=== PATIENT | female | born 1935 | race Caucasian/White ===

== ENCOUNTER 2017-06-13 17:45 | Inpatient (IN) ==
[2017-06-13] MEDS ORDERED: 0.9 % Sodium Chloride 500 ML IVC ONE (18:07)
--- NOTE | 2017-06-13 18:10 | Emergency Department Note ---
Disposition Clinical Impression: Generalized weakness, Thrombocytopenia, Severe sepsis UTI (urinary tract infection) Qualifiers: Urinary tract infection type: site unspecified Hematuria presence: with hematuria Qualified Code(s): N39.0 - Urinary tract infection, site not specified Disposition: Admitted As Inpatient Condition: Serious Time of Disposition: 18:47 Weakness HPI - General Chief complaint: ED Weakness Stated complaint: weakness Time Seen by Provider: 06/13/17 17:48 Source: EMS Mode of arrival: EMS Limitations: no limitations Nursing Notes Reviewed: Yes Vital Signs Reviewed: Yes - History of Present Illness HPI Narrative: 82-year-old female arrives to [facility] emergency department with generalized weakness has been worsening over the past 4 days. The patient denies any active complaints other than just generalized weakness. The patient states that she is not had any falls or struck her head in any way. The patient states she has a history of overactive bladder but denies any change, denies chest pain, difficulty breathing, abdominal pain, fevers, chills. 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 The patient states she has no baseline deficits associated with her previous CVA. Patient currently lives by herself at home. Pt Subjective Complaint: generalized weakness/fatigue Onset (ago): day(s) (4) Duration: constant, gradually worsening Location: generalized Migration: none Pain Severity: none Pain Scale: 0 Improves with: none Worsens with: none Associated symptoms: Reports: easy bruising, loss of appetite - Related Data Home Medications Medication Instructions Recorded Confirmed Alendronate Sodium 70 mg PO QWEEK 05/10/16 06/13/17 Aspirin 81 mg PO DAILY 05/10/16 06/13/17 Omeprazole [PriLOSEC] 20 mg PO DAILY 05/10/16 06/13/17 Sertraline [Zoloft] 150 mg PO DAILY 05/10/16 06/13/17 clonazePAM [Clonazepam] 1 mg PO HS 05/10/16 06/13/17 Ascorbic Acid [Vitamin C] 250 mg PO DAILY 04/14/17 06/13/17 Fexofenadine HCl [Allergy Relief] 180 mg PO DAILY 04/14/17 06/13/17 Iron 27 mg PO DAILY 06/13/17 06/13/17 Allergies Allergy/AdvReac Type Severity Reaction Status Date / Time phenobarbital Allergy Hives Verified 04/14/17 10:27 All systems ED: reviewed and negative except as stated. Constitutional: Reports: weakness, weight change. Denies: fever, chills Eyes: Denies: vision change ENT ED: Denies: hearing loss, dysphagia Cardiovascular: Denies: chest pain Respiratory: Denies: dyspnea Gastrointestinal: Denies: abdominal pain, nausea, vomiting, diarrhea, constipation, hematemesis, melena, hematochezia Genitourinary: Denies: dysuria, frequency, hematuria, discharge Musculoskeletal: Denies: back pain, neck pain, arthralgia, myalgia Integumentary: Denies: rash Neurological: Denies: headache, weakness, numbness Past Medical History - Past Medical History Attestation: Yes The following information was validated with the patient. Source: patient Medical history: Reports: coronary artery disease, CVA, renal disease, other Surgical history: Reports: , cholecystectomy, other Psychiatric history: Reports: depression - Social History Smoking Status: Never smoker Smokeless Tobacco Status: No Alcohol use: Reports: none Drug use: Reports: none Physical Exam - General Limitations: no limitations General appearance: alert, in no apparent distress - Head Head exam: atraumatic, normocephalic, normal inspection - Eye Eye exam: Present: normal appearance, PERRL, EOMI - ENT ENT exam: normal exam, normal oropharynx, mucous membranes moist - Neck Neck exam: Present: normal inspection, full ROM, trachea midline - Chest Chest inspection: Present: normal inspection, symmetric chest wall rise - Respiratory Respiratory exam: Present: normal lung sounds bilaterally - Cardiovascular Cardiovascular exam: Present: normal rhythm, tachycardia, normal heart sounds - Abdominal Exam Abdominal exam: Present: soft, Non-Tender. Absent: tenderness, distention, guarding, rebound, rigidity - Extremities Exam Extremities exam: Present: full ROM, other (Mild ecchymosis of bilateral lower extremities associated with likely trauma.). Absent: tenderness - Neurological Exam Neurological exam: Present: alert, oriented X3. Absent: motor sensory deficit - Expanded Neurological Exam Patient oriented to: Present: person, place, time Speech: Present: fluid speech Cranial nerves: EOM function (II, III, IV, ): Normal, facial sensation (V): Normal, facial palsy (VII): Normal Motor strength - LUE: 3/5 Motor strength - RUE: 3/5 Motor strength - LLE: 3/5 Motor strength - RLE: 3/5 Sensory exam upper extremity: light touch: Normal Sensory exam lower extremity: light touch: Normal Coma Scale Eye Opening: Spontaneous Coma Scale Motor Response: Obeys Commands Coma Scale Verbal Response: Oriented Coma Scale Total: 15 Course Vital Signs Temperature 98.8 F 06/13/17 17:48 Pulse Rate 106 06/13/17 17:48 Respiratory Rate 1 06/13/17 17:48 Blood Pressure 124/90 06/13/17 17:48 O2 Sat by Pulse Oximetry 96 06/13/17 17:48 Temperature 98.6 F 06/15/17 06:55 Pulse Rate 72 06/15/17 06:55 Respiratory Rate 18 06/15/17 06:55 Blood Pressure 138/80 06/15/17 06:55 O2 Sat by Pulse Oximetry 95 06/15/17 06:55 Oxygen Delivery Oxygen Delivery Room Air Weakness - Lab Data Result diagrams: 06/15/17 04:14 06/15/17 04:14 Lab Results 06/13/17 06/13/17 06/13/17 Range/Units 18:26 18:46 18:46 WBC (4.3-11.1) K/mcL RBC (3.82-4.97) M/mcL Hgb (11.5-15.4) g/dL Hct (35.3-44.9) % MCV (83.0-100.0) fL MCH (28.0-33.3) pg MCHC (31.6-35.5) g/dL RDW (11.5-14.5) % Plt Count (140-400) K/mcL MPV (9.4-12.4) fL Immature Gran % (0-4) % Seg Neutrophils % % Lymphocytes % % Monocytes % % Eosinophils % % Basophils % % Neutrophils # (1.6-8.9) K/mcL Lymphocytes # (0.6-4.6) K/mcL Monocytes # (0.0-1.3) K/mcL Eosinophils # (0.0-0.6) K/mcL Basophils # (0.0-0.2) K/mcL Immature Plt Fraction (1.1-6.1) % PT (9.4-12.1) Seconds INR APTT (26.0-36.0) Seconds D-Dimer (0-500) ng/mLFEU Sodium 142 (136-145) mEq/L Potassium 3.6 (3.5-4.5) mEq/L Chloride 106 (98-109) mEq/L Carbon Dioxide 23 (19-29) mEq/L BUN 28 H (7-20) mg/dL Creatinine 1.87 H (0.57-1.11) mg/dL Est GFR ( Amer) 31 L (> 60) Est GFR (Non-Af Amer) 26 L (> 60) BUN/Creatinine Ratio 15 (6-26) Glucose 82 (70-99) mg/dL Calculated Osmolality 299 (280-300) Lactic Acid 2.9 H (0.5-2.2) mmol/L Calcium 9.3 (8.6-10.8) mg/dL Phosphorus (2.3-4.7) mg/dL Magnesium (1.6-2.6) mg/dL Total Bilirubin 0.6 (0.2-1.2) mg/dL Direct Bilirubin (0.0-0.5) mg/dL Indirect Bilirubin (0.0-1.2) mg/dL AST 13 (5-34) Units/L ALT 9 (0-55) Units/L Alkaline Phosphatase 77 (38-126) Units/L Troponin I (0-0.03) ng/mL Serum Total Protein 7.8 (6.0-8.3) g/dL Albumin 3.6 (3.5-5.0) g/dL Globulin 4.2 H (2.4-3.5) g/dL Albumin/Globulin Ratio 0.9 L (1.1-2.2) Urine Color Yellow (Yellow) Urine Clarity Cloudy A (Clear) Urine pH 5.5 (5.0-8.0) pH Units Ur Specific [place] 1.015 (1.010-1.025) Urine Protein 30 H (Neg-Trace) mg/dL Urine Glucose (UA) Normal (Normal) mg/dL Urine Ketones Negative (Negative) mg/dL Urine Blood Large H (Negative) Urine Nitrite Positive A (Negative) Urine Bilirubin Negative (Negative) Urine Urobilinogen Normal (Normal) mg/dL Ur Leukocyte Esterase Large H (Negative) Urine Microscopic RBC 30-50 H (0-3) per hpf Urine Microscopic WBC 50-100 H (0-3) per hpf Ur Squamous Epith Cells Many H (None-Few) per lpf Urine Bacteria Moderate H (None-Few) per hpf Hyaline Casts Few (None-Few) per lpf Ur Culture Indicated? YES A (NO) 06/13/17 06/13/17 06/13/17 Range/Units 18:46 18:46 18:46 WBC (4.3-11.1) K/mcL RBC (3.82-4.97) M/mcL Hgb 11.9 (11.5-15.4) g/dL Hct 37.5 (35.3-44.9) % MCV (83.0-100.0) fL MCH (28.0-33.3) pg MCHC (31.6-35.5) g/dL RDW (11.5-14.5) % Plt Count 25 L* (140-400) K/mcL MPV (9.4-12.4) fL Immature Gran % (0-4) % Seg Neutrophils % % Lymphocytes % % Monocytes % % Eosinophils % % Basophils % % Neutrophils # (1.6-8.9) K/mcL Lymphocytes # (0.6-4.6) K/mcL Monocytes # (0.0-1.3) K/mcL Eosinophils # (0.0-0.6) K/mcL Basophils # (0.0-0.2) K/mcL Immature Plt Fraction (1.1-6.1) % PT 11.2 (9.4-12.1) Seconds INR 1.0 APTT (26.0-36.0) Seconds D-Dimer 963 H (0-500) ng/mLFEU Sodium (136-145) mEq/L Potassium (3.5-4.5) mEq/L Chloride (98-109) mEq/L Carbon Dioxide (19-29) mEq/L BUN (7-20) mg/dL Creatinine (0.57-1.11) mg/dL Est GFR ( Amer) (> 60) Est GFR (Non-Af Amer) (> 60) BUN/Creatinine Ratio (6-26) Glucose (70-99) mg/dL Calculated Osmolality (280-300) Lactic Acid (0.5-2.2) mmol/L Calcium (8.6-10.8) mg/dL Phosphorus (2.3-4.7) mg/dL Magnesium (1.6-2.6) mg/dL Total Bilirubin (0.2-1.2) mg/dL Direct Bilirubin (0.0-0.5) mg/dL Indirect Bilirubin (0.0-1.2) mg/dL AST (5-34) Units/L ALT (0-55) Units/L Alkaline Phosphatase (38-126) Units/L Troponin I 0.02 (0-0.03) ng/mL Serum Total Protein (6.0-8.3) g/dL Albumin (3.5-5.0) g/dL Globulin (2.4-3.5) g/dL Albumin/Globulin Ratio (1.1-2.2) Urine Color (Yellow) Urine Clarity (Clear) Urine pH (5.0-8.0) pH Units Ur Specific [place] (1.010-1.025) Urine Protein (Neg-Trace) mg/dL Urine Glucose (UA) (Normal) mg/dL Urine Ketones (Negative) mg/dL Urine Blood (Negative) Urine Nitrite (Negative) Urine Bilirubin (Negative) Urine Urobilinogen (Normal) mg/dL Ur Leukocyte Esterase (Negative) Urine Microscopic RBC (0-3) per hpf Urine Microscopic WBC (0-3) per hpf Ur Squamous Epith Cells (None-Few) per lpf Urine Bacteria (None-Few) per hpf Hyaline Casts (None-Few) per lpf Ur Culture Indicated? (NO) 06/13/17 06/13/17 06/13/17 Range/Units 19:55 19:55 19:55 WBC 5.7 (4.3-11.1) K/mcL RBC 3.72 L (3.82-4.97) M/mcL Hgb 10.3 L D (11.5-15.4) g/dL Hct 32.5 L (35.3-44.9) % MCV 87.4 (83.0-100.0) fL MCH 27.7 L (28.0-33.3) pg MCHC 31.7 (31.6-35.5) g/dL RDW 15.2 H (11.5-14.5) % Plt Count 23 L* (140-400) K/mcL MPV (9.4-12.4) fL Immature Gran % 0.5 (0-4) % Seg Neutrophils % 65.7 % Lymphocytes % 23.4 % Monocytes % 9.3 % Eosinophils % 0.7 % Basophils % 0.4 % Neutrophils # 3.7 (1.6-8.9) K/mcL Lymphocytes # 1.3 (0.6-4.6) K/mcL Monocytes # 0.5 (0.0-1.3) K/mcL Eosinophils # 0.0 (0.0-0.6) K/mcL Basophils # 0.0 (0.0-0.2) K/mcL Immature Plt Fraction 10.3 H (1.1-6.1) % PT (9.4-12.1) Seconds INR APTT 30.8 (26.0-36.0) Seconds D-Dimer (0-500) ng/mLFEU Sodium (136-145) mEq/L Potassium (3.5-4.5) mEq/L Chloride (98-109) mEq/L Carbon Dioxide (19-29) mEq/L BUN (7-20) mg/dL Creatinine (0.57-1.11) mg/dL Est GFR ( Amer) (> 60) Est GFR (Non-Af Amer) (> 60) BUN/Creatinine Ratio (6-26) Glucose (70-99) mg/dL Calculated Osmolality (280-300) Lactic Acid (0.5-2.2) mmol/L Calcium (8.6-10.8) mg/dL Phosphorus 2.0 L (2.3-4.7) mg/dL Magnesium 1.5 L (1.6-2.6) mg/dL Total Bilirubin 0.5 (0.2-1.2) mg/dL Direct Bilirubin 0.2 (0.0-0.5) mg/dL Indirect Bilirubin 0.3 (0.0-1.2) mg/dL AST 13 (5-34) Units/L ALT 8 (0-55) Units/L Alkaline Phosphatase 62 (38-126) Units/L Troponin I (0-0.03) ng/mL Serum Total Protein 6.3 (6.0-8.3) g/dL Albumin 3.0 L (3.5-5.0) g/dL Globulin 3.3 (2.4-3.5) g/dL Albumin/Globulin Ratio 0.9 L (1.1-2.2) Urine Color (Yellow) Urine Clarity (Clear) Urine pH (5.0-8.0) pH Units Ur Specific [place] (1.010-1.025) Urine Protein (Neg-Trace) mg/dL Urine Glucose (UA) (Normal) mg/dL Urine Ketones (Negative) mg/dL Urine Blood (Negative) Urine Nitrite (Negative) Urine Bilirubin (Negative) Urine Urobilinogen (Normal) mg/dL Ur Leukocyte Esterase (Negative) Urine Microscopic RBC (0-3) per hpf Urine Microscopic WBC (0-3) per hpf Ur Squamous Epith Cells (None-Few) per lpf Urine Bacteria (None-Few) per hpf Hyaline Casts (None-Few) per lpf Ur Culture Indicated? (NO) 06/13/17 06/13/17 Range/Units 19:55 21:58 WBC (4.3-11.1) K/mcL RBC (3.82-4.97) M/mcL Hgb (11.5-15.4) g/dL Hct (35.3-44.9) % MCV (83.0-100.0) fL MCH (28.0-33.3) pg MCHC (31.6-35.5) g/dL RDW (11.5-14.5) % Plt Count (140-400) K/mcL MPV (9.4-12.4) fL Immature Gran % (0-4) % Seg Neutrophils % % Lymphocytes % % Monocytes % % Eosinophils % % Basophils % % Neutrophils # (1.6-8.9) K/mcL Lymphocytes # (0.6-4.6) K/mcL Monocytes # (0.0-1.3) K/mcL Eosinophils # (0.0-0.6) K/mcL Basophils # (0.0-0.2) K/mcL Immature Plt Fraction (1.1-6.1) % PT (9.4-12.1) Seconds INR APTT (26.0-36.0) Seconds D-Dimer (0-500) ng/mLFEU Sodium (136-145) mEq/L Potassium (3.5-4.5) mEq/L Chloride (98-109) mEq/L Carbon Dioxide (19-29) mEq/L BUN (7-20) mg/dL Creatinine (0.57-1.11) mg/dL Est GFR ( Amer) (> 60) Est GFR (Non-Af Amer) (> 60) BUN/Creatinine Ratio (6-26) Glucose (70-99) mg/dL Calculated Osmolality (280-300) Lactic Acid 0.9 (0.5-2.2) mmol/L Calcium (8.6-10.8) mg/dL Phosphorus (2.3-4.7) mg/dL Magnesium (1.6-2.6) mg/dL Total Bilirubin (0.2-1.2) mg/dL Direct Bilirubin (0.0-0.5) mg/dL Indirect Bilirubin (0.0-1.2) mg/dL AST (5-34) Units/L ALT (0-55) Units/L Alkaline Phosphatase (38-126) Units/L Troponin I 0.03 (0-0.03) ng/mL Serum Total Protein (6.0-8.3) g/dL Albumin (3.5-5.0) g/dL Globulin (2.4-3.5) g/dL Albumin/Globulin Ratio (1.1-2.2) Urine Color (Yellow) Urine Clarity (Clear) Urine pH (5.0-8.0) pH Units Ur Specific [place] (1.010-1.025) Urine Protein (Neg-Trace) mg/dL Urine Glucose (UA) (Normal) mg/dL Urine Ketones (Negative) mg/dL Urine Blood (Negative) Urine Nitrite (Negative) Urine Bilirubin (Negative) Urine Urobilinogen (Normal) mg/dL Ur Leukocyte Esterase (Negative) Urine Microscopic RBC (0-3) per hpf Urine Microscopic WBC (0-3) per hpf Ur Squamous Epith Cells (None-Few) per lpf Urine Bacteria (None-Few) per hpf Hyaline Casts (None-Few) per lpf Ur Culture Indicated? (NO) - EKG Data EKG attestation: Yes I reviewed and interpreted this EKG. EKG results narrative: Heart rate 10 4 bpm. QTC 379 ms. Normal sinus rhythm. No ST elevation or ST depression noted. Large amount of artifact noted. Attestation Statement - Attestation Attestation: I examined this patient and my medical decision-making was reviewed with the Resident Physician. I agree with the documented findings, disposition and treatment plan as described.
[2017-06-13 18:37] LABS: Bilirubin,Urine Negative (Negative); Blood,Urine Large (Negative); Clarity,Urine Cloudy (Clear); Color,Urine Yellow (Yellow); Glucose,Urine (UA) Normal (Normal); Ketones,Urine Negative (Negative); Leukocyte Esterase,Urine Large (Negative); Nitrite,Urine Positive (Negative); PH,Urine 5.5 pH Units (5.0-8.0); Protein,Urine 30 mg/dL (Neg-Trace); Specific Gravity,Urine 1.015 (1.010-1.025); Urobilinogen,Urine Normal (Normal)
[2017-06-13 18:39] LABS: Bacteria,Urine Moderate per hpf (None-Few); Hyaline Casts,Urine Few per lpf (None-Few); RBC,Urine 30-50 per hpf (0-3); Squamous Epithelial Cell,Urine Many per lpf (None-Few); WBC,Urine 50-100 per hpf (0-3)
[2017-06-13] MEDS ORDERED: cefTRIAXone 1,000 MG in Water for inj. (sterile) 10 ML IVP ONE (18:46)
[2017-06-13 19:02] LABS: Hematocrit 37.5 % (35.3-44.9); Hemoglobin 11.9 g/dL (11.5-15.4)
[2017-06-13 19:08] LABS: Prothrombin Time 11.2 Seconds (9.4-12.1)
[2017-06-13 19:14] LABS: Albumin 3.6 g/dL (3.5-5.0); Albumin/Globulin Ratio 0.9 (1.1-2.2); Bilirubin,Total 0.6 mg/dL (0.2-1.2); Calcium 9.3 mg/dL (8.6-10.8); Globulin 4.2 g/dL (2.4-3.5); Potassium 3.6 mEq/L (3.5-4.5); Total Protein 7.8 g/dL (6.0-8.3)
[2017-06-13] MEDS ORDERED: 0.9 % Sodium Chloride 1,000 ML IVC ONE (19:33)
[2017-06-13 20:06] LABS: Basophils % 0.4 %; Eosinophils % 0.7 %; Hematocrit 32.5 % (35.3-44.9); Mean Corpuscular HGB Conc 31.7 g/dL (31.6-35.5)
[2017-06-13 20:08] LABS: Hemoglobin 10.3 g/dL (11.5-15.4); Immature Granulocytes % 0.5 % (0-4); Immature Platelets 10.3 % (1.1-6.1); Lymphocytes # 1.3 K/mcL (0.6-4.6); Lymphocytes % 23.4 %; Mean Corpuscular Hemoglobin 27.7 pg (28.0-33.3); Mean Corpuscular Volume 87.4 fL (83.0-100.0); Monocytes # 0.5 K/mcL (0.0-1.3); Monocytes % 9.3 %; Neutrophils # 3.7 K/mcL (1.6-8.9); Red Blood Count 3.72 M/mcL (3.82-4.97); Red Cell Distribution Width 15.2 % (11.5-14.5); Segmented Neutrophils % 65.7 %
[2017-06-13 20:20] LABS: Albumin/Globulin Ratio 0.9 (1.1-2.2); Bilirubin,Direct 0.2 mg/dL (0.0-0.5); Bilirubin,Indirect 0.3 mg/dL (0.0-1.2); Bilirubin,Total 0.5 mg/dL (0.2-1.2); Globulin 3.3 g/dL (2.4-3.5); Magnesium 1.5 mg/dL (1.6-2.6); Total Protein 6.3 g/dL (6.0-8.3)
[2017-06-13 20:27] LABS: Platelet Count 23 K/mcL (140-400)
--- NOTE | 2017-06-13 20:43 | Emergency Department Note ---
Disposition Clinical Impression: Generalized weakness, Thrombocytopenia, Severe sepsis UTI (urinary tract infection) Qualifiers: Urinary tract infection type: site unspecified Hematuria presence: with hematuria Qualified Code(s): N39.0 - Urinary tract infection, site not specified Disposition: Admitted As Inpatient Condition: Serious Referrals: Teo Darling MD [Primary Care Provider] - Forms: ED Satisfaction Letter Time of Disposition: 20:59 Weakness HPI - General Chief complaint: ED Weakness Stated complaint: weakness Time Seen by Provider: 06/13/17 17:48 Source: EMS Mode of arrival: EMS Limitations: no limitations Nursing Notes Reviewed: Yes Vital Signs Reviewed: Yes - History of Present Illness Pt Subjective Complaint: generalized weakness/fatigue Location: generalized Pain Severity: none Pain Scale: 0 Improves with: none Worsens with: none Associated symptoms: Reports: easy bruising, loss of appetite - Related Data Home Medications Medication Instructions Recorded Confirmed Alendronate Sodium 70 mg PO QWEEK 05/10/16 06/13/17 Aspirin 81 mg PO DAILY 05/10/16 06/13/17 Omeprazole [PriLOSEC] 20 mg PO DAILY 05/10/16 06/13/17 Sertraline [Zoloft] 150 mg PO DAILY 05/10/16 06/13/17 clonazePAM [Clonazepam] 1 mg PO HS 05/10/16 06/13/17 Ascorbic Acid [Vitamin C] 250 mg PO DAILY 04/14/17 06/13/17 Fexofenadine HCl [Allergy Relief] 180 mg PO DAILY 04/14/17 06/13/17 Iron 27 mg PO DAILY 06/13/17 06/13/17 Allergies Allergy/AdvReac Type Severity Reaction Status Date / Time phenobarbital Allergy Hives Verified 04/14/17 10:27 Constitutional: Reports: weakness, weight change. Denies: fever, chills Eyes: Denies: vision change ENT ED: Denies: hearing loss, dysphagia Cardiovascular: Denies: chest pain Respiratory: Denies: dyspnea Gastrointestinal: Denies: abdominal pain, nausea, vomiting, diarrhea, constipation, hematemesis, melena, hematochezia Genitourinary: Denies: dysuria, frequency, hematuria, discharge Musculoskeletal: Denies: back pain, neck pain, arthralgia, myalgia Integumentary: Denies: rash Neurological: Denies: headache, weakness, numbness Past Medical History - Past Medical History Medical history: Reports: coronary artery disease, CVA, renal disease, other Surgical history: Reports: , cholecystectomy, other Psychiatric history: Reports: depression - Social History Smoking Status: Never smoker Smokeless Tobacco Status: No Alcohol use: Reports: none Drug use: Reports: none Physical Exam - General Limitations: no limitations General appearance: alert, in no apparent distress Course Course Narrative: 82-year-old female with altered mental status and generalized weakness, please see Dr. 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., Plan is for IV antibiotics blood cultures lactate, severe sex sepsis was recognized with vital signs criteria tachycardia , and lactic acidosis - Reevaluation(s) Reevaluation #1: Patient will be started empirically on IV antibiotics, this was completed within 3 hours, she is also given a 30 ml/kg bolus 1500ml when severe sepsis was recognized, see ordering documentation for bolus, repeat lactate ordered - Consultations Consultation #1: was counseled in, he states he will not need to see the pt tonight, agrees with admitting him to the hospitalist, and recommends against transfusion at this time but the oncology service is happy to consult in the morning the patient Time: 20:58 Vital Signs Temperature 98.8 F 06/13/17 17:48 Pulse Rate 106 06/13/17 17:48 Respiratory Rate 1 06/13/17 17:48 Blood Pressure 124/90 06/13/17 17:48 O2 Sat by Pulse Oximetry 96 06/13/17 17:48 Temperature 98.8 F 06/13/17 17:48 Pulse Rate 96 06/13/17 20:36 Respiratory Rate 16 06/13/17 20:36 Blood Pressure 157/80 06/13/17 20:36 O2 Sat by Pulse Oximetry 96 06/13/17 20:36 Oxygen Delivery Oxygen Delivery Room Air Weakness - Differential Diagnosis Differential Diagnosis: Likely: sepsis/infection - Medical Records Medical records reviewed: Yes I reviewed the patient's medical records. - Lab Data Lab results reviewed: Yes I reviewed the patient's lab results. Result diagrams: 06/13/17 19:55 06/13/17 18:46 Lab Results 06/13/17 06/13/17 06/13/17 Range/Units 18:26 18:46 18:46 WBC (4.3-11.1) K/mcL RBC (3.82-4.97) M/mcL Hgb (11.5-15.4) g/dL Hct (35.3-44.9) % MCV (83.0-100.0) fL MCH (28.0-33.3) pg MCHC (31.6-35.5) g/dL RDW (11.5-14.5) % Plt Count (140-400) K/mcL MPV (9.4-12.4) fL Immature Gran % (0-4) % Seg Neutrophils % % Lymphocytes % % Monocytes % % Eosinophils % % Basophils % % Neutrophils # (1.6-8.9) K/mcL Lymphocytes # (0.6-4.6) K/mcL Monocytes # (0.0-1.3) K/mcL Eosinophils # (0.0-0.6) K/mcL Basophils # (0.0-0.2) K/mcL Immature Plt Fraction (1.1-6.1) % PT (9.4-12.1) Seconds INR APTT (26.0-36.0) Seconds D-Dimer (0-500) ng/mLFEU Sodium 142 (136-145) mEq/L Potassium 3.6 (3.5-4.5) mEq/L Chloride 106 (98-109) mEq/L Carbon Dioxide 23 (19-29) mEq/L BUN 28 H (7-20) mg/dL Creatinine 1.87 H (0.57-1.11) mg/dL Est GFR ( Amer) 31 L (> 60) Est GFR (Non-Af Amer) 26 L (> 60) BUN/Creatinine Ratio 15 (6-26) Glucose 82 (70-99) mg/dL Calculated Osmolality 299 (280-300) Lactic Acid 2.9 H (0.5-2.2) mmol/L Calcium 9.3 (8.6-10.8) mg/dL Phosphorus (2.3-4.7) mg/dL Magnesium (1.6-2.6) mg/dL Total Bilirubin 0.6 (0.2-1.2) mg/dL Direct Bilirubin (0.0-0.5) mg/dL Indirect Bilirubin (0.0-1.2) mg/dL AST 13 (5-34) Units/L ALT 9 (0-55) Units/L Alkaline Phosphatase 77 (38-126) Units/L Troponin I (0-0.03) ng/mL Serum Total Protein 7.8 (6.0-8.3) g/dL Albumin 3.6 (3.5-5.0) g/dL Globulin 4.2 H (2.4-3.5) g/dL Albumin/Globulin Ratio 0.9 L (1.1-2.2) Urine Color Yellow (Yellow) Urine Clarity Cloudy A (Clear) Urine pH 5.5 (5.0-8.0) pH Units Ur Specific [place] 1.015 (1.010-1.025) Urine Protein 30 H (Neg-Trace) mg/dL Urine Glucose (UA) Normal (Normal) mg/dL Urine Ketones Negative (Negative) mg/dL Urine Blood Large H (Negative) Urine Nitrite Positive A (Negative) Urine Bilirubin Negative (Negative) Urine Urobilinogen Normal (Normal) mg/dL Ur Leukocyte Esterase Large H (Negative) Urine Microscopic RBC 30-50 H (0-3) per hpf Urine Microscopic WBC 50-100 H (0-3) per hpf Ur Squamous Epith Cells Many H (None-Few) per lpf Urine Bacteria Moderate H (None-Few) per hpf Hyaline Casts Few (None-Few) per lpf Ur Culture Indicated? YES A (NO) 06/13/17 06/13/17 06/13/17 Range/Units 18:46 18:46 18:46 WBC (4.3-11.1) K/mcL RBC (3.82-4.97) M/mcL Hgb 11.9 (11.5-15.4) g/dL Hct 37.5 (35.3-44.9) % MCV (83.0-100.0) fL MCH (28.0-33.3) pg MCHC (31.6-35.5) g/dL RDW (11.5-14.5) % Plt Count 25 L* (140-400) K/mcL MPV (9.4-12.4) fL Immature Gran % (0-4) % Seg Neutrophils % % Lymphocytes % % Monocytes % % Eosinophils % % Basophils % % Neutrophils # (1.6-8.9) K/mcL Lymphocytes # (0.6-4.6) K/mcL Monocytes # (0.0-1.3) K/mcL Eosinophils # (0.0-0.6) K/mcL Basophils # (0.0-0.2) K/mcL Immature Plt Fraction (1.1-6.1) % PT 11.2 (9.4-12.1) Seconds INR 1.0 APTT (26.0-36.0) Seconds D-Dimer 963 H (0-500) ng/mLFEU Sodium (136-145) mEq/L Potassium (3.5-4.5) mEq/L Chloride (98-109) mEq/L Carbon Dioxide (19-29) mEq/L BUN (7-20) mg/dL Creatinine (0.57-1.11) mg/dL Est GFR ( Amer) (> 60) Est GFR (Non-Af Amer) (> 60) BUN/Creatinine Ratio (6-26) Glucose (70-99) mg/dL Calculated Osmolality (280-300) Lactic Acid (0.5-2.2) mmol/L Calcium (8.6-10.8) mg/dL Phosphorus (2.3-4.7) mg/dL Magnesium (1.6-2.6) mg/dL Total Bilirubin (0.2-1.2) mg/dL Direct Bilirubin (0.0-0.5) mg/dL Indirect Bilirubin (0.0-1.2) mg/dL AST (5-34) Units/L ALT (0-55) Units/L Alkaline Phosphatase (38-126) Units/L Troponin I 0.02 (0-0.03) ng/mL Serum Total Protein (6.0-8.3) g/dL Albumin (3.5-5.0) g/dL Globulin (2.4-3.5) g/dL Albumin/Globulin Ratio (1.1-2.2) Urine Color (Yellow) Urine Clarity (Clear) Urine pH (5.0-8.0) pH Units Ur Specific [place] (1.010-1.025) Urine Protein (Neg-Trace) mg/dL Urine Glucose (UA) (Normal) mg/dL Urine Ketones (Negative) mg/dL Urine Blood (Negative) Urine Nitrite (Negative) Urine Bilirubin (Negative) Urine Urobilinogen (Normal) mg/dL Ur Leukocyte Esterase (Negative) Urine Microscopic RBC (0-3) per hpf Urine Microscopic WBC (0-3) per hpf Ur Squamous Epith Cells (None-Few) per lpf Urine Bacteria (None-Few) per hpf Hyaline Casts (None-Few) per lpf Ur Culture Indicated? (NO) 06/13/17 06/13/17 06/13/17 Range/Units 19:55 19:55 19:55 WBC 5.7 (4.3-11.1) K/mcL RBC 3.72 L (3.82-4.97) M/mcL Hgb 10.3 L D (11.5-15.4) g/dL Hct 32.5 L (35.3-44.9) % MCV 87.4 (83.0-100.0) fL MCH 27.7 L (28.0-33.3) pg MCHC 31.7 (31.6-35.5) g/dL RDW 15.2 H (11.5-14.5) % Plt Count 23 L* (140-400) K/mcL MPV (9.4-12.4) fL Immature Gran % 0.5 (0-4) % Seg Neutrophils % 65.7 % Lymphocytes % 23.4 % Monocytes % 9.3 % Eosinophils % 0.7 % Basophils % 0.4 % Neutrophils # 3.7 (1.6-8.9) K/mcL Lymphocytes # 1.3 (0.6-4.6) K/mcL Monocytes # 0.5 (0.0-1.3) K/mcL Eosinophils # 0.0 (0.0-0.6) K/mcL Basophils # 0.0 (0.0-0.2) K/mcL Immature Plt Fraction 10.3 H (1.1-6.1) % PT (9.4-12.1) Seconds INR APTT 30.8 (26.0-36.0) Seconds D-Dimer (0-500) ng/mLFEU Sodium (136-145) mEq/L Potassium (3.5-4.5) mEq/L Chloride (98-109) mEq/L Carbon Dioxide (19-29) mEq/L BUN (7-20) mg/dL Creatinine (0.57-1.11) mg/dL Est GFR ( Amer) (> 60) Est GFR (Non-Af Amer) (> 60) BUN/Creatinine Ratio (6-26) Glucose (70-99) mg/dL Calculated Osmolality (280-300) Lactic Acid (0.5-2.2) mmol/L Calcium (8.6-10.8) mg/dL Phosphorus 2.0 L (2.3-4.7) mg/dL Magnesium 1.5 L (1.6-2.6) mg/dL Total Bilirubin 0.5 (0.2-1.2) mg/dL Direct Bilirubin 0.2 (0.0-0.5) mg/dL Indirect Bilirubin 0.3 (0.0-1.2) mg/dL AST 13 (5-34) Units/L ALT 8 (0-55) Units/L Alkaline Phosphatase 62 (38-126) Units/L Troponin I (0-0.03) ng/mL Serum Total Protein 6.3 (6.0-8.3) g/dL Albumin 3.0 L (3.5-5.0) g/dL Globulin 3.3 (2.4-3.5) g/dL Albumin/Globulin Ratio 0.9 L (1.1-2.2) Urine Color (Yellow) Urine Clarity (Clear) Urine pH (5.0-8.0) pH Units Ur Specific [place] (1.010-1.025) Urine Protein (Neg-Trace) mg/dL Urine Glucose (UA) (Normal) mg/dL Urine Ketones (Negative) mg/dL Urine Blood (Negative) Urine Nitrite (Negative) Urine Bilirubin (Negative) Urine Urobilinogen (Normal) mg/dL Ur Leukocyte Esterase (Negative) Urine Microscopic RBC (0-3) per hpf Urine Microscopic WBC (0-3) per hpf Ur Squamous Epith Cells (None-Few) per lpf Urine Bacteria (None-Few) per hpf Hyaline Casts (None-Few) per lpf Ur Culture Indicated? (NO) 06/13/17 Range/Units 19:55 WBC (4.3-11.1) K/mcL RBC (3.82-4.97) M/mcL Hgb (11.5-15.4) g/dL Hct (35.3-44.9) % MCV (83.0-100.0) fL MCH (28.0-33.3) pg MCHC (31.6-35.5) g/dL RDW (11.5-14.5) % Plt Count (140-400) K/mcL MPV (9.4-12.4) fL Immature Gran % (0-4) % Seg Neutrophils % % Lymphocytes % % Monocytes % % Eosinophils % % Basophils % % Neutrophils # (1.6-8.9) K/mcL Lymphocytes # (0.6-4.6) K/mcL Monocytes # (0.0-1.3) K/mcL Eosinophils # (0.0-0.6) K/mcL Basophils # (0.0-0.2) K/mcL Immature Plt Fraction (1.1-6.1) % PT (9.4-12.1) Seconds INR APTT (26.0-36.0) Seconds D-Dimer (0-500) ng/mLFEU Sodium (136-145) mEq/L Potassium (3.5-4.5) mEq/L Chloride (98-109) mEq/L Carbon Dioxide (19-29) mEq/L BUN (7-20) mg/dL Creatinine (0.57-1.11) mg/dL Est GFR ( Amer) (> 60) Est GFR (Non-Af Amer) (> 60) BUN/Creatinine Ratio (6-26) Glucose (70-99) mg/dL Calculated Osmolality (280-300) Lactic Acid (0.5-2.2) mmol/L Calcium (8.6-10.8) mg/dL Phosphorus (2.3-4.7) mg/dL Magnesium (1.6-2.6) mg/dL Total Bilirubin (0.2-1.2) mg/dL Direct Bilirubin (0.0-0.5) mg/dL Indirect Bilirubin (0.0-1.2) mg/dL AST (5-34) Units/L ALT (0-55) Units/L Alkaline Phosphatase (38-126) Units/L Troponin I 0.03 (0-0.03) ng/mL Serum Total Protein (6.0-8.3) g/dL Albumin (3.5-5.0) g/dL Globulin (2.4-3.5) g/dL Albumin/Globulin Ratio (1.1-2.2) Urine Color (Yellow) Urine Clarity (Clear) Urine pH (5.0-8.0) pH Units Ur Specific [place] (1.010-1.025) Urine Protein (Neg-Trace) mg/dL Urine Glucose (UA) (Normal) mg/dL Urine Ketones (Negative) mg/dL Urine Blood (Negative) Urine Nitrite (Negative) Urine Bilirubin (Negative) Urine Urobilinogen (Normal) mg/dL Ur Leukocyte Esterase (Negative) Urine Microscopic RBC (0-3) per hpf Urine Microscopic WBC (0-3) per hpf Ur Squamous Epith Cells (None-Few) per lpf Urine Bacteria (None-Few) per hpf Hyaline Casts (None-Few) per lpf Ur Culture Indicated? (NO) - Radiology Data Radiology results reviewed: Yes I reviewed the patient's radiology results. Chest X-Ray 06/13/17 18:05 IMPRESSION: Stable exam. No acute cardiopulmonary findings. D/ / Patsy Tamayo MD / Patsy Tamayo MD Interpreting Provider: Patsy Tamayo MD Head CT 06/13/17 19:37 IMPRESSION: No acute intracranial abnormality. Bilateral mastoid air cell disease. D/ / Shantel Shaw Cha, MD / Shantel Shaw Cha, MD Interpreting Provider: Shantel Shaw Cha, MD Critical Care Time Critical Care Time: Yes Total Critical Care Time: 40 Attestation: Critical care performed: Time is exclusive of separately billable procedures. Time includes: direct patient care, patient reassessment, coordination of patient care, interpretation of data (laboratory data, radiology data, and respiratory data), review of patient's medical records, medical consultation and documentation of patient care. Procedures included in critical care time: Procedures excluded from critical care time: Attestation Statement - Attestation Attestation: I, Kailash Hicks MD, personally evaluated this patient and discussed their management with the resident physician. I reviewed the resident's note and agree with the documented findings, medical decision making, and plan of care. This patient was signed out at shift change from Dr. Aguirre and Dr. Velasquez. Please refer to their notes for complete details of the history and physical examination. Patient is an 82-year-old female who lives at home alone and presented complaining of generalized weakness increasing over the past week. For the last several days she states that she has had difficulty getting out of bed or ambulating. She complains of pain in her right leg where she has a chronic ulcer on the leg. She denies any urinary symptoms. No definite fever. On examination patient is a well-developed thin elderly female in no acute distress. She is alert and answers questions appropriately. There is no cyanosis or diaphoresis. Breath sounds are clear and equal bilaterally. Heart is regular with a mild tachycardia. Abdomen is soft and nontender with normal bowel sounds. There is some mild cellulitis of the distal anterior right lower leg. Labs reviewed. UTI noted. Thrombocytopenia noted. Elevated lactic acid. Chest x-ray negative. Head CT negative. Patient meets severe sepsis criteria. Dr. Christine discussed with the adaptive physical education teacher on-call regarding the thrombocytopenia and they will consult on patient in the hospital. The hospitalist, Dr. Victor, was consulted and accepted admission of the patient. Sepsis Reassessment Note - Evaluation Current Stage of Sepsis: severe sepsis Possible Source of Sepsis: genitourinary - Focused Exam Date of Encounter: 06/13/17 Time of Encounter: 20:56 Vital Signs: Vital Signs Temp Pulse Resp BP Pulse Ox 06/13/17 20:36 96 16 157/80 96 06/13/17 18:46 110 19 143/76 100 06/13/17 17:48 98.8 F 106 1 124/90 96 Respiratory Exam: Present: CTA bilaterally Cardiovascular Exam: Present: tachycardia Capillary Refill: < 2 seconds Peripheral Pulse Strength: 3+ normal Peripheral Pulse Location: Radial Skin Exam: normal turgor - Reassessment Comments Comments: Patient has severe sepsis by definition with lactate of 2.9 altered mental status UTI, tachycardia but has no evidence of septic shock she has not hypotense, repeat lactate will be checked within 6 hours, patient was started empirically on broad-spectrum antibiotics after blood cultures and lactate were checked within the first 3 hours, the patient is medically stable at this time, does have poor skin turgor and tachycardia but is otherwise showing no signs of shock at this time
[2017-06-13] MEDS ORDERED: Naloxone 0.4 MG/ML INJ IVP PRN (22:10)
[2017-06-13] MEDS ORDERED: Ondansetron 4 MG/2 ML VIAL IVP PRN (22:10)
[2017-06-13] MEDS: 0.9 % Sodium Chloride 1,000 ML IVC SCH (23:53)
--- NOTE | 2017-06-14 02:48 | Internal Med History&Physical ---
Date of Encounter: 06/14/17 Time of Encounter: 01:00 Assessment and Plan (1) Thrombocytopenia Current visit: Yes Status: Acute Severe Acute on chronic thrombocytopenia - no active bleeding - unclear etiology Patient does have extensive bruising of her arms and lower extremities Watch for any bleeding, transfuse platelets as needed Oncology consult Labs in a.m., monitor closely (2) Sacral decubitus ulcer, stage III Current visit: Yes Status: Acute Chronic sacral decubitus ulcer, stage III Continue wound care daily (3) UTI (urinary tract infection) Current visit: Yes Status: Acute Acute cystitis, UTI, present on admission, likely secondary to gram-negative bacilli Continue empiric IV Rocephin Cultures - pending Qualifiers: Urinary tract infection type: site unspecified Hematuria presence: with hematuria Qualified Code(s): N39.0 - Urinary tract infection, site not specified; R31.9 - Hematuria, unspecified; R31.9 - Hematuria, unspecified (4) Generalized weakness Current visit: Yes Status: Acute Generalized weakness - probably due to poor by mouth intake and due to protein calorie malnutrition due to UTI Nutrition consult Internal Medicine - H&P: HPI Chief complaint: Generalized weakness Admitted From: Emergency Dept Plans for Post Hospital Care: Home History of present illness: Ms. Sullivan is a 82 year old female with past medical history of coronary artery disease, CVA, chronic kidney disease, depression and thrombocytopenia. Patient presents to the ED with complaints of generalized weakness. Examined in the room. Patient is awake and alert. Not in any distress. Able to provide limited history. No family members at bedside. Patient states she has worsening generalized weakness over the past 4-5 days. No falls or injuries recently. She denies chest pain or shortness of breath or headache or dizziness. States she does not feel like her usual self. No aggravating or alleviating factors. Patient does report easy bruising and poor appetite. She also has a sacral wound and follows at the wound clinic. No other associated symptoms. No other acute complaints at this time. Initial workup in the ED revealed severe thrombocytopenia and elevated d-dimer. The patient also has a significant UTIs. Chest x-ray does not show any acute cardiopulmonary findings. CT of the head does not show any acute intracranial abnormality. Patient is being admitted for severe thrombocytopenia. Oncology has been consulted from the ED. No platelet transfusion at this time. Watch for any bleeding. Patient has been explained about her condition and plan of care in detail. She understood and agreed. No unanswered questions. CODE STATUS full code. Past Med Surg Social Fam HX - Past Medical History Medical history: coronary artery disease, CVA, renal disease, other Psychiatric history: depression - Past Surgical History Surgical History: , cholecystectomy, other - Social History Smoking Status: Never smoker Smokeless Tobacco Status: No Alcohol use: none Drug use: none - Family History Mother Living Status: Cause of : [place] Hx Family Cardiac Disorders: Yes Hx Family Respiratory Disorders: No Hx Family Cancer: No Hx Family GI Disorders: No Hx Family Genitourinary Disorders: No Hx Family Endocrine Disorder: No Internal Medicine - H&P: Meds Alendronate Sodium 70 mg PO QWEEK 05/10/16 [History] Aspirin 81 mg PO DAILY 05/10/16 [History] Omeprazole [PriLOSEC] 20 mg PO DAILY 05/10/16 [History] Sertraline [Zoloft] 150 mg PO DAILY 05/10/16 [History] clonazePAM [Clonazepam] 1 mg PO HS 05/10/16 [History] Ascorbic Acid [Vitamin C] 250 mg PO DAILY 04/14/17 [History] Fexofenadine HCl [Allergy Relief] 180 mg PO DAILY 04/14/17 [History] Iron 27 mg PO DAILY 06/13/17 [History] 3 Allergy/AdvReac Type Severity Reaction Status Date / Time phenobarbital Allergy Hives Verified 04/14/17 10:27 All Systems PM: A 10-system review of systems was performed and is negative for pertinent findings except as documented above in the HPI. - Constitutional Constitutional: fatigue, weakness, no fever(s) - EENT Eyes: no blurry vision, no change in vision Nose, mouth and throat: no dry mouth - Cardiovascular Cardiovascular ROS IM: no chest pain, no diaphoresis, no dyspnea, no dyspnea on exertion, no edema, no lightheadedness, no orthopnea, no palpitations, no syncope - Respiratory Respiratory: no cough, no dyspnea, no hemoptysis, no dyspnea on exertion, no wheezing, no chest congestion - Gastrointestinal Gastrointestinal: no abdominal pain, no bloating, no cramping, no diarrhea, no dysphagia, no hematemesis, no hematochezia, no loose stools, no nausea, no vomiting - Genitourinary Genitourinary: dysuria - Neurological Neurological ROS: no abnormal gait, no confusion, no convulsions, no dizziness, no focal weakness, no numbness, no tingling, no weakness - Constitutional Vitals: Temp Pulse Resp BP Pulse Ox 99.0 F 93 17 145/69 96 06/14/17 02:40 06/14/17 02:40 06/14/17 02:40 06/14/17 02:40 06/14/17 02:40 General appearance: Present: cachectic, A&O X 2, pleasant, no acute distress, answers questions appropriately Exam: Objective alert. Follows commands and verbalizes well. - Head Head exam: Present: atraumatic - Eye Eye exam: Present: EOMI - ENT ENT exam: Present: mucous membranes dry - Respiratory Respiratory exam: Present: CTAB. Absent: accessory muscle use, chest wall tenderness, rales, respiratory distress, rhonchi, wheezes, tachypnea - Cardiovascular Cardiovascular exam: Present: RRR, +S1, +S2 - GI/Abdominal GI/Abdominal exam: Present: soft. Absent: distended, firm, guarding, tenderness - Extremities Exam Extremities exam: Present: radial pulses palpable and symmetrical. Absent: calf tenderness, cyanotic, pedal edema - Neurological Exam Neurological exam: Present: alert, no focal deficits. Absent: facial droop, speech deficit Additional comments: 11. Able to verbalize well and follows commands. Oriented to place and person. No obvious focal neurological deficits. - Skin Additional comments: Multiple bruises over her arms and lower extremities with skin tears. Sacral decubitus ulcer stage III. Internal Med - H&P Results - Labs CBC & Chem 7: 06/13/17 19:55 06/13/17 18:46
[2017-06-14] MEDS: Acetaminophen 325 MG TABLET PO PRN ×2 (04:08→15:26)
[2017-06-14 05:36] LABS: Hemoglobin 9.4 g/dL (11.5-15.4); Mean Corpuscular HGB Conc 31.3 g/dL (31.6-35.5); Mean Corpuscular Hemoglobin 27.5 pg (28.0-33.3); Mean Corpuscular Volume 87.7 fL (83.0-100.0); Monocytes % 8.9 %; Red Blood Count 3.42 M/mcL (3.82-4.97); Segmented Neutrophils % 52.1 %
[2017-06-14 05:37] LABS: Basophils % 0.4 %; Eosinophils # 0.1 K/mcL (0.0-0.6); Immature Granulocytes % 0.2 % (0-4); Lymphocytes # 1.7 K/mcL (0.6-4.6); Lymphocytes % 36.4 %; Monocytes # 0.4 K/mcL (0.0-1.3); Neutrophils # 2.4 K/mcL (1.6-8.9); Red Cell Distribution Width 15.1 % (11.5-14.5)
[2017-06-14 05:41] LABS: Prothrombin Time 11.2 Seconds (9.4-12.1)
[2017-06-14 05:50] LABS: Magnesium 1.5 mg/dL (1.6-2.6); Potassium 3.9 mEq/L (3.5-4.5)
[2017-06-14 05:53] LABS: Platelet Count 34 K/mcL (140-400)
[2017-06-14 05:56] LABS: Calcium 7.9 mg/dL (8.6-10.8)
[2017-06-14 06:23] LABS: Platelet Estimate Marked Decrease (Normal)
[2017-06-14] MEDS: IRON 27MG PO SCH (08:53)
[2017-06-14] MEDS: cefTRIAXone 1,000 MG in Water for inj. (sterile) 10 ML IVP SCH (08:54)
[2017-06-14] MEDS: Ascorbic Acid 500 MG TABLET PO SCH (08:55)
--- NOTE | 2017-06-14 15:36 | Event Note ---
Date of Encounter: 06/14/17 Time of Encounter: 09:15 Mrs. Sullivan is an 82-year-old female with past medical history of CAD, CVA, depression, stage III decubitus ulcer, protein calorie malnutrition, CKC stage III, anemia and thrombocytopenia and states that she sees hematology. Patient presented to the emergency department with complaints of generalized weakness. Patient lives at home alone, she states that she has an aide who comes to assist her twice a week for 4 hours a day. She reports increasing weakness over the last 4-5 days and 2 falls in the last week. She also reports dizziness with position changes. She denies headache, blurred vision, chest pain or shortness of breath. She denies any nausea, vomiting, diaphoresis or diarrhea. She denies fever chills. She states that when she did fall she was unable to get herself up from the floor. Physical exam reveals a frail, cachectic female with extensive bruising. During Exam patient was unable to lift her 4 ounce orange juice from the table. Patient appears to be dry. S1 and S2 heard regular rate and rhythm without gallops, clicks, murmurs. Lungs are clear diminished throughout both anteriorly and posteriorly. She is in no distress there is no wheezing, rales, rhonchi. Abdomen slightly rounded soft, nontender, bowel sounds are present. She has no peripheral edema however she does have multiple healing wounds to lower extremities. She also has a healing decubitus ulcer to her sacrum. Likely source of recent weakness other than physical deconditioning is a UTI. Urinalysis reveals cloudy urine with a large amount of blood, positive for nitrites, large amount leukocyte esterase, 30-50 microscopic red cells, 50-100 microscopic white cells, moderate bacteria. Culture showed Escherichia coli. He is being treated with Rocephin 1 g IV daily. Will wait for sensitivity make adjustments accordingly. Patient also has thrombocytopenia, on admission platelets were 23, this morning 34. This is significantly lower than her baseline. She states that she already sees hematology, they have been consulted by vacuum drier tender and will see patient while she is here. Per admitting physician, they have requested that we do not transfuse her. Patient also appears to have anemia. Labs have been ordered, suspect iron deficiency due to cachexia and poor diet. In February, percent saturation was 9% and iron level was 35. I have continued ferrous sulfate here. Dietary has been consulted. Patient has healing decubitus ulcer to sacrum. Wound care was consulted by admitting provider. PT/OT have been consulted. Patient states that she is not going to do physical therapy due to the fact that it is uncomfortable for her and causes her legs physical pain. environmental services associate is also consulted for discharge planning. At this time I feel that patient is not safe to return home. Patient is mildly hypertensive, due to renal disease I did not add a diuretic or 80s. I did add a beta maged low dose 12.5. We will monitor her overnight. Abnormal labs as mentioned above. Creatinine is 1.61, GFR is 31. This is at patient's baseline for stage III CKD. Magnesium 1.5, mag ox has been ordered. Calcium is low at 7.9. I have added calcium carbonate 1000 mg 4 times a day. We will continue telemetry and monitor patient. Consultations ordered and pending as above.
--- NOTE | 2017-06-14 17:00 | Oncology Inp Consult Note ---
Date of Encounter: 06/15/17 Time of Encounter: 16:55 Assessment and Plan (1) UTI (urinary tract infection) Status: Acute Assessment and plan: Recurrent Escherichia coli UTI. This could be a reason for her thrombocytopenia She also had sacral decubitus ulcer in 2016 which has healed Qualifiers: Urinary tract infection type: site unspecified Hematuria presence: with hematuria Qualified Code(s): N39.0 - Urinary tract infection, site not specified; R31.9 - Hematuria, unspecified; R31.9 - Hematuria, unspecified (2) Thrombocytopenia Status: Acute Assessment and plan: Acute on chronic thrombocytopenia with platelet count 24,000 on admission. Improved to 35,000. She has chronic thrombocytopenia and also progressive anemia. Differential include portal hypertension versus underlying MDS. May consider bone marrow biopsy as an outpatient Consider platelet transfusion if platelet count drops below 10,000 or clinical evidence of bleeding which she does not have Her acute drop in platelet count is probably secondary to her UTI. B12 folate and TSH normal 06/15/2017. Iron saturation pending. Rheumatoid factor less than 15 Also anemia workup. She had elevated ESR 58 in the past which could have been secondary to sepsis - Data of Consult Requesting Physician: Paola Miller CNP Primary Care Provider: Teo Darling MD - Consult Narrative Reason for consult: Thrombocytopenia History of present illness: Ms. Sullivan is a 82 year old female hospitalized with UTI Escherichia coli. She has recurrent UTI and on May 2000 16 units: A UTI which was sensitive to all antibiotics. Sensitivity from this culture is pending Progressive thrombocytopenia current platelet count around 20,000 area day this has dropped her baseline is around 50,000 Thrombocytopenia is progressive since 2014 and at that time it was 90,000 She also has anemia progressively since 2014. Hemoglobin is dropped from 13 in 2014 to around 9 range. Normocytic normochromic Workup showed low iron saturation of 13% with ferritin 60. B12 folate TSH normal in the past. Workup for thrombocytopenia including vital hepatitis panel negative April 2017 No history of type 2 diabetes She follows up with Dr. Duran at [facility] for thrombocytopenia Etiology of thrombocytopenia to be determined May evaluate her liver and spleen with ultrasound to rule out portal hypertension/cirrhosis. She may have a component of MDS CT of chest 10/30/2014 negative Past medical history coronary artery disease, CVA, chronic kidney disease is 3. Current creatinine 1.6 and stable depression and thrombocytopenia. Sacral decubitus ulcer. MRI pelvis June 2016 showed 5 centimeters decubitus ulcer in the sacrum and possible osteomyelitis S1 area. Since then the decubitus ulcer has healed Past Med Surg Social Fam HX - Past Medical History Medical history: coronary artery disease, CVA, renal disease, other Psychiatric history: depression - Past Surgical History Surgical History: , cholecystectomy, other - Social History Smoking Status: Never smoker Smokeless Tobacco Status: No Alcohol use: none Drug use: none - Family History Mother Living Status: Cause of : IN Hx Family Cardiac Disorders: Yes Hx Family Respiratory Disorders: No Hx Family Cancer: No Hx Family GI Disorders: No Hx Family Genitourinary Disorders: No Hx Family Endocrine Disorder: No Medications and Allergies Alendronate Sodium 70 mg PO QWEEK 05/10/16 [History] Aspirin 81 mg PO DAILY 05/10/16 [History] Omeprazole [PriLOSEC] 20 mg PO DAILY 05/10/16 [History] Sertraline [Zoloft] 150 mg PO DAILY 05/10/16 [History] clonazePAM [Clonazepam] 1 mg PO HS 05/10/16 [History] Ascorbic Acid [Vitamin C] 250 mg PO DAILY 04/14/17 [History] Fexofenadine HCl [Allergy Relief] 180 mg PO DAILY 04/14/17 [History] Iron 27 mg PO DAILY 06/13/17 [History] 3 Allergy/AdvReac Type Severity Reaction Status Date / Time phenobarbital Allergy Hives Verified 04/14/17 10:27 Review of systems: She is alert and oriented. Able to answer questions appropriately. No chest pain or shortness of breath Oncology - Exam - Constitutional Vitals: Temp Pulse Resp BP Pulse Ox 98.8 F 97 16 176/96 96 06/14/17 14:51 06/14/17 14:51 06/14/17 14:51 06/14/17 14:51 06/14/17 14:51 Exam: GENERAL: Alert and oriented, well appearing. Mental Status: Affect appropriate for circumstances HEENT: Sclerae anicteric. No mucositis or thrush. No other oral or pharyngeal lesions or erythema. Skin: No rashes or petechiae. No evidence of skin malignancy Lymph nodes: No cervical, supraclavicular, axillary, or inguinal adenopathy. Lungs: Air entry normal with normal breath sounds. No rhonchi or wheezing Cardiovascular: Regular rate and rhythm. No skipped beats Abdomen: Soft, nontender; no organomegaly or masses palpable. Extremities: No edema. No calf swelling or tenderness. No joint deformity. Neurologic: Alert, cranial nerves II-XII intact; normal gait; no focal weakness or sensory abnormalities Oncology - Results Labs: Short CBC 06/14/17 Range/Units 04:40 WBC 4.6 (4.3-11.1) K/mcL Hgb 9.4 L (11.5-15.4) g/dL Hct 30.0 L (35.3-44.9) % Plt Count 34 L (140-400) K/mcL Neutrophils # 2.4 (1.6-8.9) K/mcL BMP 06/14/17 04:40 Sodium 140 Potassium 3.9 Chloride 111 H Carbon Dioxide 19 BUN 30 H Creatinine 1.61 H Glucose 113 H Calcium 7.9 L D Consult Discharge Plan - Plan Referrals: Teo aDrling MD [Primary Care Provider] -
[2017-06-14] MEDS: Aspirin 81 MG TAB.CHEW PO SCH (17:32)
[2017-06-14 19:35] LABS: Rheumatoid Factor < 15 IU/mL (0-29)
[2017-06-14] MEDS: 0.9 % Sodium Chloride 1,000 ML IVC SCH (19:38)
[2017-06-14 20:04] LABS: Folate 7.2 ng/mL (7.0-31.4); Vitamin B12 509 pg/mL (213-816)
[2017-06-14] MEDS: clonazePAM 1 MG TABLET PO SCH (21:14)
[2017-06-14] MEDS: Magnesium Oxide 400 MG TABLET PO SCH (21:14)
--- NOTE | 2017-06-14 22:57 | Electrocardiograph Report ---
[address] [place] [address] Test Date: 2017-06-13 Pat Name: Susan Sullivan Department: [id number] Room: 3B41 Gender: F Police Stenographer: TMR : [id number] Requested By: Hair Wall Order Number: [id number] Reading MD: Sunny Sofia MD Measurements Intervals [address] Flat Rate: 106 P: AL: 0 QRS: 9 QRSD: 85 T: 66 QT: 324 QTc: 386 Interpretive Statements PROBABLY SINUS TACHYCARDIA BASELINE ARTIFACT, REPEAT EKG Electronically Signed On 06-14-2017 22:55:46 EST by Sunny Sofia MD
[2017-06-15] MEDS: 0.9 % Sodium Chloride 1,000 ML IVC SCH (01:41)
[2017-06-15 04:39] LABS: Immature Granulocytes % 0.2 % (0-4); Mean Corpuscular Hemoglobin 27.3 pg (28.0-33.3)
[2017-06-15 04:41] LABS: Basophils % 0.7 %; Eosinophils # 0.1 K/mcL (0.0-0.6); Eosinophils % 2.8 %; Hematocrit 31.2 % (35.3-44.9); Hemoglobin 9.7 g/dL (11.5-15.4); Immature Platelets 9.9 % (1.1-6.1); Lymphocytes # 1.8 K/mcL (0.6-4.6); Lymphocytes % 41.8 %; Mean Corpuscular HGB Conc 31.1 g/dL (31.6-35.5); Mean Corpuscular Volume 87.9 fL (83.0-100.0); Monocytes # 0.4 K/mcL (0.0-1.3); Monocytes % 9.4 %; Neutrophils # 1.9 K/mcL (1.6-8.9); Nucleated Red Blood Cells 0.7 /100 WBC (0); Red Blood Count 3.55 M/mcL (3.82-4.97); Segmented Neutrophils % 45.1 %
[2017-06-15 04:48] LABS: Platelet Count 27 K/mcL (140-400)
[2017-06-15 04:55] LABS: Calcium 8.1 mg/dL (8.6-10.8)
[2017-06-15 05:24] LABS: Platelet Estimate Decreased (Normal)
[2017-06-15 05:25] LABS: Poikilocytosis 1+ (Not Present)
[2017-06-15] MEDS: Aspirin 81 MG TAB.CHEW PO SCH (09:00)
[2017-06-15] MEDS: Ascorbic Acid 500 MG TABLET PO SCH (09:00)
[2017-06-15] MEDS: Magnesium Oxide 400 MG TABLET PO SCH ×2 (09:01→20:48)
[2017-06-15] MEDS: Loratadine 10 MG TABLET PO SCH (09:01)
[2017-06-15] MEDS: IRON 27MG PO SCH (09:03)
[2017-06-15] MEDS: cefTRIAXone 1,000 MG in Water for inj. (sterile) 10 ML IVP SCH (09:03)
[2017-06-15 11:00] LABS: Folate 8.4 ng/mL (7.0-31.4)
--- NOTE | 2017-06-15 18:29 | Internal Med Progress Note ---
Date of Encounter: 06/15/17 Time of Encounter: 09:45 - Assessment and plan (1) Sacral decubitus ulcer, stage III Current Visit: Yes Status: Acute Assessment and plan: Healed. Wound care has been seen. Turn every 2 hours. (2) UTI (urinary tract infection) Current Visit: Yes Status: Acute Assessment and plan: Patient presented for confusion and weakness. Urine culture grew Escherichia coli. It is susceptible to Rocephin. Will change to Bactrim. Blood cultures were negative. Patient denies any symptoms. She is back to her baseline mentation. There is no fever or leukocytosis, no tachycardia or hypotension. Qualifiers: Urinary tract infection type: site unspecified Hematuria presence: with hematuria Qualified Code(s): N39.0 - Urinary tract infection, site not specified; R31.9 - Hematuria, unspecified; R31.9 - Hematuria, unspecified (3) Anemia Current Visit: Yes Status: Chronic Assessment and plan: Patient with chronic anemia. She is seen by oncology. She has no signs of bleeding. Iron is 26, percent saturation is 9. Folate and B12 were within normal limits. Patient was started on ferrous sulfate twice a day.. Continue to monitor. Qualifiers: Anemia type: iron deficiency Iron deficiency anemia type: unspecified iron deficiency Qualified Code(s): D50.9 - Iron deficiency anemia, unspecified (4) Thrombocytopenia Current Visit: Yes Status: Acute Assessment and plan: Patient with chronic thrombocytopenia. She has been seen by oncology here. Acute on chronic with platelet count 24,000. Per oncology, acute drop in platelet counts probably secondary to UTI. (5) DVT prophylaxis Current Visit: Yes Status: Acute Assessment and plan: MANNY joiner ordered, up to chair. No pharmacologic intervention indicated due to chronic anemia and thrombocytopenia. - Time Spent With Patient less than 15 minutes - Subjective Interval history: Patient was seen and assessed at bedside at 9:45 AM. Patient states that she feels somewhat better, she still reports fatigue. She was seen by oncology and extra labs were ordered. She was assessed by them again today. Plan for discharge tomorrow. She denies headache, blurred vision, chest pain or shortness of breath. She denies fever or chills. She denies any abdominal pain , nausea, vomiting, diarrhea. - Constitutional Vitals: Temp Pulse Resp BP Pulse Ox 98.1 F 72 20 139/80 97 06/15/17 16:00 06/15/17 16:00 06/15/17 16:00 06/15/17 16:00 06/15/17 16:00 General appearance: Present: cachectic, A&O X 2, pleasant, no acute distress, answers questions appropriately - Head Head exam: Present: atraumatic, normal inspection, normocephalic - Eye Eye exam: Present: normal appearance, conjuntiva pink, sclera anicteric - Neck Neck exam general surgery: Present: supple, trachea midline. Absent: lymphadenopathy - Respiratory Respiratory exam: Present: CTAB. Absent: accessory muscle use, chest wall tenderness, decreased breath sounds, rales, rhonchi, wheezes - Cardiovascular Cardiovascular exam: Present: RRR, +S1, +S2. Absent: diastolic murmur, gallop, rubs, systolic murmur - GI/Abdominal GI/Abdominal exam: Present: normal bowel sounds, soft. Absent: distended, guarding, tenderness - Extremities Exam Extremities exam: Present: normal inspection, warm, radial pulses palpable and symmetrical. Absent: calf tenderness, cyanotic, pedal edema - Neurological Exam Neurological exam: Present: alert, oriented X3, no focal deficits, pronater drift. Absent: altered, facial droop, speech deficit - Skin Skin exam: Present: dry, intact, warm. Absent: rash Internal Medicine: Result - Labs CBC & Chem 7: 06/15/17 04:14 06/15/17 04:14 Labs: Short CBC 06/15/17 Range/Units 04:14 WBC 4.3 (4.3-11.1) K/mcL Hgb 9.7 L (11.5-15.4) g/dL Hct 31.2 L (35.3-44.9) % Plt Count 27 L* (140-400) K/mcL Neutrophils # 1.9 (1.6-8.9) K/mcL BMP 06/15/17 04:14 Sodium 142 Potassium 4.0 Chloride 113 H Carbon Dioxide 18 L BUN 26 H Creatinine 1.56 H Glucose 117 H Calcium 8.1 L - ABG Interpretation ABG results: PT/INR, D-dimer PT 11.2 Seconds (9.4-12.1) 06/14/17 04:40 D-Dimer 963 ng/mLFEU (0-500) H 06/13/17 18:46 Consult Discharge Plan - Plan Referrals: Teo Darling MD [Primary Care Provider] -
[2017-06-15] MEDS: clonazePAM 1 MG TABLET PO SCH (20:48)
[2017-06-16 07:14] LABS: Immature Granulocytes % 0.2 % (0-4)
[2017-06-16 07:16] LABS: Basophils % 0.6 %; Eosinophils # 0.2 K/mcL (0.0-0.6); Eosinophils % 3.4 %; Hematocrit 33.5 % (35.3-44.9); Hemoglobin 10.3 g/dL (11.5-15.4); Immature Platelets 8.1 % (1.1-6.1); Lymphocytes # 1.8 K/mcL (0.6-4.6); Lymphocytes % 36.5 %; Mean Corpuscular HGB Conc 30.7 g/dL (31.6-35.5); Mean Corpuscular Hemoglobin 27.5 pg (28.0-33.3); Mean Corpuscular Volume 89.6 fL (83.0-100.0); Monocytes # 0.5 K/mcL (0.0-1.3); Monocytes % 9.4 %; Neutrophils # 2.5 K/mcL (1.6-8.9); Nucleated Red Blood Cells 0.4 /100 WBC (0); Red Blood Count 3.74 M/mcL (3.82-4.97); Segmented Neutrophils % 49.9 %
[2017-06-16 07:31] LABS: Calcium 8.2 mg/dL (8.6-10.8); Magnesium 1.8 mg/dL (1.6-2.6); Potassium 4.4 mEq/L (3.5-4.5)
[2017-06-16 07:38] LABS: Platelet Count 39 K/mcL (140-400)
[2017-06-16] MEDS ORDERED: Sulfamethoxazole/Trimeth SS 1 TAB PO SCH (09:00)
[2017-06-16] MEDS: Aspirin 81 MG TAB.CHEW PO SCH (09:16)
[2017-06-16] MEDS: Loratadine 10 MG TABLET PO SCH (09:16)
[2017-06-16] MEDS: Ascorbic Acid 500 MG TABLET PO SCH (09:16)
[2017-06-16] MEDS: Magnesium Oxide 400 MG TABLET PO SCH (09:17)
[2017-06-16] MEDS: IRON 27MG PO SCH (09:17)
[2017-06-16 15:30] VITALS: BP 151/80
--- NOTE | 2017-06-16 16:33 | Discharge Summary ---
Date of Encounter: 06/16/17 Time of Encounter: 08:55 - Discharge Diagnosis (1) UTI (urinary tract infection) Priority: Primary Status: Acute Comments: Patient presented for confusion and weakness. Urine culture grew Escherichia coli. It is susceptible to Rocephin. Will change to Bactrim. Blood cultures were negative. Patient denies any symptoms. She is back to her baseline mentation. There is no fever or leukocytosis, no tachycardia or hypotension. Patient is going to be sent home on Bactrim by mouth. Qualifiers: Urinary tract infection type: site unspecified Hematuria presence: with hematuria Qualified Code(s): N39.0 - Urinary tract infection, site not specified; R31.9 - Hematuria, unspecified; R31.9 - Hematuria, unspecified (2) Sacral decubitus ulcer, stage III Priority: Secondary Status: Chronic Comments: Healed. Patient was seen by wound care. Recommend turn every 2 hours. Patient controls her mobility at home. (3) Anemia Priority: Secondary Status: Chronic Comments: Patient with chronic anemia. She is seen by oncology. She has no signs of bleeding. Iron is 26, percent saturation is 9. Folate and B12 were within normal limits. Patient was started on ferrous sulfate twice a day.. Patient will need to follow-up with primary care/oncology for continued monitoring and management. Qualifiers: Anemia type: iron deficiency Iron deficiency anemia type: unspecified iron deficiency Qualified Code(s): D50.9 - Iron deficiency anemia, unspecified (4) Thrombocytopenia Priority: Secondary Status: Chronic Comments: Patient with chronic thrombocytopenia. She has been seen by oncology here. Acute on chronic with platelet count 39,000, improved over admission. Per oncology, acute drop in platelet counts probably secondary to UTI. Oncology recommends ultrasound the liver and spleen. I spoke with Dr. Phan by phone, he will do the ultrasound outpatient. Patient is stable for discharge. (5) DVT prophylaxis Priority: Secondary Status: Acute Comments: MANNY joiner ordered, up to chair. No pharmacologic intervention due to chronic anemia and thrombocytopenia. Patient has no signs of bleeding. - Discharge Medications Prescriptions: Sulfamethoxazole/Trimeth SS [Bactrim SS] 1 tab PO BID #12 tablet Home Medications: Alendronate Sodium 70 mg PO QWEEK 05/10/16 [History] Aspirin 81 mg PO DAILY 05/10/16 [History] Omeprazole [PriLOSEC] 20 mg PO DAILY 05/10/16 [History] Sertraline [Zoloft] 150 mg PO DAILY 05/10/16 [History] clonazePAM [Clonazepam] 1 mg PO HS 05/10/16 [History] Ascorbic Acid [Vitamin C] 250 mg PO DAILY 04/14/17 [History] Fexofenadine HCl [Allergy Relief] 180 mg PO DAILY 04/14/17 [History] Iron 27 mg PO DAILY 06/13/17 [History] Sulfamethoxazole/Trimeth SS [Bactrim SS] 1 tab PO BID #12 tablet 06/16/17 [Rx] Allergies/Adverse Reactions: 3 Allergy/AdvReac Type Severity Reaction Status Date / Time phenobarbital Allergy Hives Verified 04/14/17 10:27 Date of admission: 06/13/17 22:10 Primary care physician: Teo Darling MD Consults: 06/14/17 03:17 Consult to Occupational Therapy [CONS] Routine Comment: Evaluate, develop and implement POC Reason for Consult: OT eval Consult to Physical Therapy [CONS] Routine Comment: Evaluate, develop and implement POC Reason for Consult: PT eval Consult to Echo Vascular Tech [CONS] Routine Reason for SW Consult: Discharge planning consult to statistical engineer [Consult to Nutrition] [CONS] Routine Comment: Protein calorie malnutrition Consulting Provider: NUTRITION Reason for Dietary Consult: Other 06/14/17 03:19 Consult to Wound Care [CONS] Routine Reason for Consult: Sacral decubitus ulcer Call Completed: No Discharging clinician: Paola Miller Anticipated date of discharge: 06/16/17 - Patient Status Disposition: Home, Self-Care Condition: Serious Functional capacity at discharge: bed bound Overall status at discharge: patient is back to baseline - Discharge Instructions Follow Up With: Teo Darling MD [Primary Care Provider] - 06/26/17 3:30 pm Additional Instructions: Please follow up with your PCP in the next 7-10 days Take your medications as directed. Return to the ER as needed for any other problems or concerns. REturn to your normal activities and diet as tolerated. - Diet and Activity Activity: increase activity as tolerated Diet: advance to your usual diet Hospital course: Ms. Sullivan is a 82 year old female with past medical history of healed sacral stage III decubitus ulcer, cellulitis, constipation, urinary incontinence, chronic anemia and thrombocytopenia. Patient presented with weakness, confusion. She was diagnosed with urinary tract infection and treated with Rocephin. She is going to be discharged on Bactrim. Patient is very weak she has refused physical therapy and occupational therapy. She says that she has home health aides who come to times a week for 4 hours. barrow worker helper discussed increasing hours with her. Apparently patient is a hoarder and is embarrassed about the condition of her home, she does not allow people to come in. Patient is alert, awake, oriented, pleasant. Physical exam is unremarkable for anything but weakness. Patient is stable and appropriate for discharge. - Time Spent with Patient Total time spent providing and/or coordinating discharge services: Less than 30 minutes - Constitutional Vitals: Temp Pulse Resp BP Pulse Ox 98 F 82 16 151/80 100 06/16/17 15:22 06/16/17 15:22 06/16/17 15:22 06/16/17 15:22 06/16/17 15:22 General appearance: Present: cachectic, A&O X 2, pleasant, no acute distress, answers questions appropriately - Head Head exam: Present: atraumatic, normal inspection, normocephalic - Eye Eye exam: Present: normal appearance, conjuntiva pink, sclera anicteric - Neck Neck exam general surgery: Present: supple, trachea midline. Absent: lymphadenopathy - Respiratory Respiratory exam: Present: CTAB. Absent: accessory muscle use, rales, rhonchi, wheezes - Cardiovascular Cardiovascular exam: Present: RRR, +S1, +S2. Absent: diastolic murmur, gallop, rubs, systolic murmur - GI/Abdominal GI/Abdominal exam: Present: normal bowel sounds, soft. Absent: distended, tenderness - Extremities Exam Extremities exam: Present: warm, radial pulses palpable and symmetrical. Absent : calf tenderness, cyanotic, pedal edema, tenderness - Neurological Exam Neurological exam: Present: CN II-XII intact, oriented X3, no focal deficits. Absent: facial droop, speech deficit - Skin Skin exam: Present: dry, intact, normal color, warm. Absent: rash
[2017-06-18 06:04] LABS: Kappa Qnt Free Light Chains 7.08 mg/dL (0.33-1.94); Lambda Qnt Free Light Chains 3.85 mg/dL (0.57-2.63)
[2017-06-18 06:40] LABS: Alpha 2 Globulin (PEP) 0.63 g/dL (0.48-1.05); Beta Globulin (PEP) 0.53 g/dL (0.48-1.10)
[2017-06-19 08:07] LABS: IFE Reflexed NOT DONE
[2017-06-19 12:38] LABS: ANA IgG by ELISA DETECTED (None Detected)
== END 2017-06-16 19:15 | disposition home or self-care (01) | DRG 690 ==
LOC: EMEROO 17:45 → 3BNU 17:45
PROVIDERS: ADMIT Family Medicine; ATTEND Registered Nurse

== ENCOUNTER 2017-06-20 17:37 | Inpatient (IN) ==
--- NOTE | 2017-06-20 17:42 | Emergency Department Note ---
Disposition Clinical Impression: Generalized weakness UTI (urinary tract infection) Qualifiers: Urinary tract infection type: acute cystitis Hematuria presence: without hematuria Qualified Code(s): N30.00 - Acute cystitis without hematuria Disposition: Admitted As Inpatient Condition: Fair Referrals: Teo Darling MD [Primary Care Provider] - Forms: ED Satisfaction Letter Time of Disposition: 19:51 Weakness HPI - General Chief complaint: ED Weakness Stated complaint: no energy Time Seen by Provider: 06/20/17 17:39 Source: patient, EMS Mode of arrival: EMS Limitations: no limitations Nursing Notes Reviewed: Yes Vital Signs Reviewed: Yes - History of Present Illness HPI Narrative: 82-year-old female who was hospitalized last week for generalized weakness and was found to have a UTI which grew out greater than 100,000 Escherichia coli sensitive to Bactrim which she was placed on. Patient was discharged on Monday was placed on the couch at her house and has not moved since. Home health came in today and found her on the couch she had urine and feces soaking the couch she had not moved from that spot where they had put her down on Monday. She states she is just generally weak and cannot ambulate. Pt Subjective Complaint: generalized weakness/fatigue Onset (ago): day(s) Duration: constant Location: generalized Improves with: none Worsens with: none Context: new medication - Related Data Home Medications Medication Instructions Recorded Confirmed Alendronate Sodium 70 mg PO QWEEK 05/10/16 06/20/17 Aspirin 81 mg PO DAILY 05/10/16 06/20/17 Omeprazole [PriLOSEC] 20 mg PO DAILY 05/10/16 06/20/17 Sertraline [Zoloft] 150 mg PO DAILY 05/10/16 06/20/17 clonazePAM [Clonazepam] 1 mg PO HS 05/10/16 06/20/17 Ascorbic Acid [Vitamin C] 250 mg PO DAILY 04/14/17 06/20/17 Fexofenadine HCl [Allergy Relief] 180 mg PO DAILY 04/14/17 06/20/17 Ferrous Sulfate [Iron] 325 mg PO DAILY #0 06/13/17 06/20/17 Previous Rx's Medication Instructions Recorded Sulfamethoxazole/Trimeth SS 1 tab PO BID #12 tablet 06/16/17 [Bactrim SS] Allergies Allergy/AdvReac Type Severity Reaction Status Date / Time phenobarbital Allergy Hives Verified 06/20/17 17:44 All systems ED: reviewed and negative except as stated. Constitutional: Denies: fever, chills, weakness, weight change Eyes: Denies: eye pain, eye discharge, vision change ENT ED: Denies: ear pain, throat pain, dental pain, hearing loss, epistaxis, congestion, dysphagia Cardiovascular: Denies: chest pain, palpitations, dyspnea on exertion, edema, syncope Respiratory: Denies: cough, dyspnea, wheezes, hemoptysis, stridor Gastrointestinal: Denies: abdominal pain, nausea, vomiting, diarrhea, constipation, hematemesis, melena, hematochezia Genitourinary: Denies: dysuria, frequency, hematuria, discharge Musculoskeletal: Denies: back pain, neck pain, arthralgia, myalgia Integumentary: Denies: rash, abrasion, lesions Neurological: Reports: weakness. Denies: headache, numbness, paresthesias, confusion, abnormal gait, vertigo Psychiatric: Denies: anxiety, depression, suicidal thoughts, homicidal thoughts , auditory hallucinations, visual hallucinations Endocrine: Denies: fatigue Hematological/Lymphatic: Denies: easy bleeding, easy bruising Allergic/Immunologic: Denies: facial swelling, urticaria Past Medical History - Past Medical History Medical history: Reports: coronary artery disease, CVA, renal disease, other Surgical history: Reports: , cholecystectomy, other Psychiatric history: Reports: depression - Social History Smoking Status: Never smoker Smokeless Tobacco Status: No Alcohol use: Reports: none Drug use: Reports: none Physical Exam - General Limitations: no limitations General appearance: alert, in no apparent distress - Head Head exam: atraumatic, normocephalic, normal inspection - Eye Eye exam: Present: normal appearance, PERRL, EOMI - ENT ENT exam: normal exam, normal oropharynx, mucous membranes moist - Neck Neck exam: Present: normal inspection, full ROM, trachea midline - Chest Chest inspection: Present: normal inspection, symmetric chest wall rise - Respiratory Respiratory exam: Present: normal lung sounds bilaterally - Cardiovascular Cardiovascular exam: Present: regular rate, normal rhythm, normal heart sounds - Abdominal Exam Abdominal exam: Present: soft, Non-Tender. Absent: tenderness, distention, guarding, rebound, rigidity - Extremities Exam Extremities exam: Present: normal inspection, full ROM. Absent: tenderness, pedal edema - Expanded Lower Extremity Exam Neurovascular/Tendon exam: Absent: motor deficit, sensory deficit, tendon deficit Gait: not tested/not observed - Back Exam Back exam: Present: normal inspection, full ROM. Absent: tenderness - Neurological Exam Neurological exam: Present: alert, oriented X3 - Psychiatric Psychiatric exam: Present: normal affect, normal mood - Skin Skin exam: Present: warm, dry, intact, normal color Course - Reevaluation(s) Reevaluation #1: 82-year-old who was admitted for UTI and altered mental status comes back in and she has not been able to move from where she was dropped off on the couch on Monday. Patient will be admitted for further evaluation and treatment. Time: 19:49 - Consultations Consultation #1: Discussed with , admit. Time: 19:51 Vital Signs Temperature 98.2 F 06/20/17 17:40 Pulse Rate 96 06/20/17 17:40 Respiratory Rate 14 06/20/17 17:40 Blood Pressure 140/69 06/20/17 17:40 O2 Sat by Pulse Oximetry 100 06/20/17 17:40 Temperature 98.2 F 06/20/17 17:40 Pulse Rate 96 06/20/17 17:40 Respiratory Rate 14 06/20/17 17:40 Blood Pressure 140/69 06/20/17 17:40 O2 Sat by Pulse Oximetry 100 06/20/17 17:40 Oxygen Delivery Oxygen Delivery Room Air Weakness - Lab Data Lab results reviewed: Yes I reviewed the patient's lab results. Result diagrams: 06/20/17 18:15 06/20/17 18:15 Lab Results 06/20/17 06/20/17 06/20/17 Range/Units 18:15 18:15 18:15 WBC 4.3 (4.3-11.1) K/mcL RBC 3.58 L (3.82-4.97) M/mcL Hgb 9.9 L (11.5-15.4) g/dL Hct 32.0 L (35.3-44.9) % MCV 89.4 (83.0-100.0) fL MCH 27.7 L (28.0-33.3) pg MCHC 30.9 L (31.6-35.5) g/dL RDW 14.8 H (11.5-14.5) % Plt Count 63 L D (140-400) K/mcL MPV 11.3 (9.4-12.4) fL Immature Gran % 0.5 (0-4) % Seg Neutrophils % 78.8 % Lymphocytes % 11.2 % Monocytes % 6.7 % Eosinophils % 2.8 % Basophils % 0.0 % Neutrophils # 3.4 (1.6-8.9) K/mcL Lymphocytes # 0.5 L (0.6-4.6) K/mcL Monocytes # 0.3 (0.0-1.3) K/mcL Eosinophils # 0.1 (0.0-0.6) K/mcL Basophils # 0.0 (0.0-0.2) K/mcL Sodium 142 (136-145) mEq/L Potassium 2.7 L (3.5-4.5) mEq/L Chloride 112 H (98-109) mEq/L Carbon Dioxide 18 L (19-29) mEq/L BUN 43 H (7-20) mg/dL Creatinine 1.70 H (0.57-1.11) mg/dL Est GFR ( Amer) 35 L (> 60) Est GFR (Non-Af Amer) 29 L (> 60) BUN/Creatinine Ratio 25 (6-26) Glucose 102 H (70-99) mg/dL Calculated Osmolality 305 H (280-300) Calcium 8.8 (8.6-10.8) mg/dL Total Bilirubin 0.4 (0.2-1.2) mg/dL AST 14 (5-34) Units/L ALT 9 (0-55) Units/L Alkaline Phosphatase 65 (38-126) Units/L Creatine Kinase 43 (29-168) Units/L Troponin I 0.02 (0-0.03) ng/mL Serum Total Protein 6.8 (6.0-8.3) g/dL Albumin 3.2 L (3.5-5.0) g/dL Globulin 3.6 H (2.4-3.5) g/dL Albumin/Globulin Ratio 0.9 L (1.1-2.2) TSH 3.350 (0.350-4.840) mcIU/mL Urine Color (Yellow) Urine Clarity (Clear) Urine pH (5.0-8.0) pH Units Ur Specific [place] (1.010-1.025) Urine Protein (Neg-Trace) mg/dL Urine Glucose (UA) (Normal) mg/dL Urine Ketones (Negative) mg/dL Urine Blood (Negative) Urine Nitrite (Negative) Urine Bilirubin (Negative) Urine Urobilinogen (Normal) mg/dL Ur Leukocyte Esterase (Negative) Urine Microscopic RBC (0-3) per hpf Urine Microscopic WBC (0-3) per hpf Ur Squamous Epith Cells (None-Few) per lpf Urine Bacteria (None-Few) per hpf Hyaline Casts (None-Few) per lpf Ur Culture Indicated? (NO) 06/20/17 Range/Units 18:44 WBC (4.3-11.1) K/mcL RBC (3.82-4.97) M/mcL Hgb (11.5-15.4) g/dL Hct (35.3-44.9) % MCV (83.0-100.0) fL MCH (28.0-33.3) pg MCHC (31.6-35.5) g/dL RDW (11.5-14.5) % Plt Count (140-400) K/mcL MPV (9.4-12.4) fL Immature Gran % (0-4) % Seg Neutrophils % % Lymphocytes % % Monocytes % % Eosinophils % % Basophils % % Neutrophils # (1.6-8.9) K/mcL Lymphocytes # (0.6-4.6) K/mcL Monocytes # (0.0-1.3) K/mcL Eosinophils # (0.0-0.6) K/mcL Basophils # (0.0-0.2) K/mcL Sodium (136-145) mEq/L Potassium (3.5-4.5) mEq/L Chloride (98-109) mEq/L Carbon Dioxide (19-29) mEq/L BUN (7-20) mg/dL Creatinine (0.57-1.11) mg/dL Est GFR ( Amer) (> 60) Est GFR (Non-Af Amer) (> 60) BUN/Creatinine Ratio (6-26) Glucose (70-99) mg/dL Calculated Osmolality (280-300) Calcium (8.6-10.8) mg/dL Total Bilirubin (0.2-1.2) mg/dL AST (5-34) Units/L ALT (0-55) Units/L Alkaline Phosphatase (38-126) Units/L Creatine Kinase (29-168) Units/L Troponin I (0-0.03) ng/mL Serum Total Protein (6.0-8.3) g/dL Albumin (3.5-5.0) g/dL Globulin (2.4-3.5) g/dL Albumin/Globulin Ratio (1.1-2.2) TSH (0.350-4.840) mcIU/mL Urine Color Yellow (Yellow) Urine Clarity Clear (Clear) Urine pH 6.0 (5.0-8.0) pH Units Ur Specific [place] 1.020 (1.010-1.025) Urine Protein 30 H (Neg-Trace) mg/dL Urine Glucose (UA) Normal (Normal) mg/dL Urine Ketones Negative (Negative) mg/dL Urine Blood Moderate H (Negative) Urine Nitrite Negative (Negative) Urine Bilirubin Negative (Negative) Urine Urobilinogen Normal (Normal) mg/dL Ur Leukocyte Esterase Negative (Negative) Urine Microscopic RBC 5-15 H (0-3) per hpf Urine Microscopic WBC 5-15 H (0-3) per hpf Ur Squamous Epith Cells Many H (None-Few) per lpf Urine Bacteria None Seen (None-Few) per hpf Hyaline Casts Few (None-Few) per lpf Ur Culture Indicated? NO (NO) - Radiology Data Radiology results reviewed: Yes I reviewed the patient's radiology results. Chest X-Ray 06/20/17 17:40 IMPRESSION: 1. No convincing acute cardiopulmonary abnormality. 2. Elevation of the left hemidiaphragm. D/ / Checo Melgoza MD / Checo Melgoza MD Interpreting Provider: Checo Melgoza MD Head CT 06/20/17 17:41 IMPRESSION: No acute intracranial abnormality. D/ / Aaron Phillips MD / Aaron Phillips MD Interpreting Provider: Aaron Phillips MD - EKG Data EKG attestation: Yes I reviewed and interpreted this EKG. EKG shows normal: sinus rhythm Rate: normal Rhythm: NSR Interpretation: no acute changes NIH Stroke Scale - Level of Consciousness LOC: Alert - LOC Questions LOC Questions: Answers both correctly - LOC Commands LOC Commands: Performs both correctly - Best Gaze Best Gaze: Normal - Visual Visual: No visual loss - Facial Palsy Facial Palsy: Normal - Motor Arms Motor Arm-Left: No drift for 10 seconds Motor Arm-Right: No drift for 10 seconds - Motor Legs Motor Leg-Left: No drift for 5 seconds Motor Leg-Right: No drift for 5 seconds - Limb Ataxia Limb Ataxia: Normal, No Ataxia - Sensory Sensory: Normal - Best Language Best Language: No aphasia - Dysarthria Dysarthria: Normal - Extinction and Inattention Extinction and Inattention: Normal - NIHSS Total Score NIHSS Total Score: 0
[2017-06-20 18:26] LABS: Eosinophils # 0.1 K/mcL (0.0-0.6); Eosinophils % 2.8 %; Hemoglobin 9.9 g/dL (11.5-15.4); Immature Granulocytes % 0.5 % (0-4); Lymphocytes # 0.5 K/mcL (0.6-4.6); Lymphocytes % 11.2 %; Mean Corpuscular HGB Conc 30.9 g/dL (31.6-35.5); Mean Corpuscular Hemoglobin 27.7 pg (28.0-33.3); Mean Corpuscular Volume 89.4 fL (83.0-100.0); Mean Platelet Volume 11.3 fL (9.4-12.4); Monocytes # 0.3 K/mcL (0.0-1.3); Monocytes % 6.7 %; Neutrophils # 3.4 K/mcL (1.6-8.9); Red Blood Count 3.58 M/mcL (3.82-4.97); Red Cell Distribution Width 14.8 % (11.5-14.5); Segmented Neutrophils % 78.8 %
[2017-06-20 18:28] LABS: Platelet Count 63 K/mcL (140-400)
[2017-06-20 18:48] LABS: Albumin 3.2 g/dL (3.5-5.0); Albumin/Globulin Ratio 0.9 (1.1-2.2); Bilirubin,Total 0.4 mg/dL (0.2-1.2); Calcium 8.8 mg/dL (8.6-10.8); Globulin 3.6 g/dL (2.4-3.5); Potassium 2.7 mEq/L (3.5-4.5); Total Protein 6.8 g/dL (6.0-8.3)
[2017-06-20 19:08] LABS: Thyroid Stimulating Hormone 3.35 mcIU/mL (0.350-4.840)
[2017-06-20 19:09] LABS: Bilirubin,Urine Negative (Negative); Blood,Urine Moderate (Negative); Clarity,Urine Clear (Clear); Color,Urine Yellow (Yellow); Glucose,Urine (UA) Normal (Normal); Ketones,Urine Negative (Negative); Leukocyte Esterase,Urine Negative (Negative); Nitrite,Urine Negative (Negative); Protein,Urine 30 mg/dL (Neg-Trace); Urobilinogen,Urine Normal (Normal)
[2017-06-20 19:11] LABS: Bacteria,Urine None Seen per hpf (None-Few); Hyaline Casts,Urine Few per lpf (None-Few); Squamous Epithelial Cell,Urine Many per lpf (None-Few)
[2017-06-20] MEDS ORDERED: cefTRIAXone 1,000 MG in Water for inj. (sterile) 10 ML IVP ONE (19:50)
[2017-06-20] MEDS ORDERED: Naloxone 0.4 MG/ML INJ IVP PRN (23:43)
--- NOTE | 2017-06-20 23:51 | Internal Med History&Physical ---
Date of Encounter: 06/20/17 Time of Encounter: 21:00 Assessment and Plan (1) Generalized weakness Current visit: Yes Status: Acute FTT PT/OT eval, likely need placement Right leg weaker than left slightly - has been there for the last 1.[address] head w/o contrast wnl. Will watch closely (2) Hypokalemia Current visit: Yes Status: Acute replete with IV potassium with IVF, replete Mg since low watch for any diarrhea this inpatient (3) UTI (urinary tract infection) Current visit: Yes Status: Acute macrobid to complete therapy Qualifiers: Urinary tract infection type: acute cystitis Hematuria presence: without hematuria Qualified Code(s): N30.00 - Acute cystitis without hematuria (4) CKD (chronic kidney disease) Current visit: Yes Status: Acute trend Cr Qualifiers: Chronic kidney disease stage: stage 3 (moderate) Qualified Code(s): N18.3 - Chronic kidney disease, stage 3 (moderate) (5) Thrombocytopenia Current visit: No Status: Chronic stable. watch for now uncertain etiology - MDS ?? compression pumps for ppx Internal Medicine - H&P: HPI Chief complaint: severe weakness, unable to get up History of present illness: Ms. Sullivan is a 82 year old female who presents with FTT and LE weakness. She was recently admitted last week and was discharged with outpatient therapy for UTI on monday. Since getting home, she has become deconditioned and had been sitting in her chair for the last few days, unable to get up from the chair due to proximal b/l LE weakness (right > left) that has started for the last 1.5 weeks now. Her neighbours had been kind enough to bring her food. She mentions of some diarrhea [address]/CT head/brain wo con IMPRESSION: No acute intracranial abnormality. XR/XR chest 1V portable IMPRESSION: 1. No convincing acute cardiopulmonary abnormality. 2. Elevation of the left hemidiaphragm. Past Med Surg Social Fam HX - Past Medical History Medical history: coronary artery disease, CVA, renal disease, other Psychiatric history: anxiety, depression - Past Surgical History Surgical History: , cholecystectomy, other - Social History Smoking Status: Never smoker Smokeless Tobacco Status: No Alcohol use: none Drug use: none - Family History Mother Living Status: Hx Family Cardiac Disorders: Yes Hx Family Respiratory Disorders: No Hx Family Cancer: No Hx Family GI Disorders: No Hx Family Endocrine Disorder: No Internal Medicine - H&P: Meds Alendronate Sodium 70 mg PO QWEEK 05/10/16 [History] Aspirin 81 mg PO DAILY 05/10/16 [History] Omeprazole [PriLOSEC] 20 mg PO DAILY 05/10/16 [History] Sertraline [Zoloft] 150 mg PO DAILY 05/10/16 [History] clonazePAM [Clonazepam] 1 mg PO HS 05/10/16 [History] Ascorbic Acid [Vitamin C] 250 mg PO DAILY 04/14/17 [History] Fexofenadine HCl [Allergy Relief] 180 mg PO DAILY 04/14/17 [History] Ferrous Sulfate [Iron] 325 mg PO DAILY #0 06/13/17 [History] Sulfamethoxazole/Trimeth SS [Bactrim SS] 1 tab PO BID #12 tablet 06/16/17 [Rx] 3 Allergy/AdvReac Type Severity Reaction Status Date / Time phenobarbital Allergy Hives Verified 06/20/17 17:44 All Systems PM: A 10-system review of systems was performed and is negative for pertinent findings except as documented above in the HPI. Review of systems: ROS 14 point review of systems reviewed as best as possible given presentation. Pertinent positive or negative as per HPI or otherwise reviewed as negative - Constitutional Vitals: Temp Pulse Resp BP Pulse Ox 98.2 F 90 16 149/79 98 06/20/17 22:56 06/20/17 22:56 06/20/17 22:56 06/20/17 22:56 06/20/17 22:56 Exam: General - AAO x 3 Psych - Appropriate affect/speech. No agitation Eyes - DEEPAK. Eye lids intact. No scleral icterus Neuro - No CN deficits on exam. LE power 4-/5 on right, 4+/5 on left. No UE deficits Heart - Sinus. RRR. S1 and S2 present. No added HS/murmurs appreciated. No elevated JVD appreciated. Lung - Adequate air entry b/l, No crackles/wheezes appreciated GI - Soft, non-tender. No hepatosplenomegaly/ascites. BS+ - No CVA/suprapubic tenderness or palpable bladder distension Skin - Intact. Ecchymosis on hummel. Warm extremities Internal Med - H&P Results - Labs CBC & Chem 7: 06/20/17 18:15 06/20/17 18:15
[2017-06-21] MEDS: 0.9 % Sodium Chloride w KCl 20 MEQ/1,000 ML MLS IVC SCH ×2 (00:57→12:23)
[2017-06-21 05:45] LABS: Immature Granulocytes % 0.6 % (0-4)
[2017-06-21 05:47] LABS: Basophils % 0.3 %; Eosinophils # 0.1 K/mcL (0.0-0.6); Eosinophils % 3.9 %; Hematocrit 31.5 % (35.3-44.9); Hemoglobin 9.5 g/dL (11.5-15.4); Immature Platelets 3.8 % (1.1-6.1); Lymphocytes # 0.2 K/mcL (0.6-4.6); Lymphocytes % 7.2 %; Mean Corpuscular HGB Conc 30.2 g/dL (31.6-35.5); Mean Corpuscular Hemoglobin 27.2 pg (28.0-33.3); Mean Corpuscular Volume 90.3 fL (83.0-100.0); Mean Platelet Volume 12.4 fL (9.4-12.4); Monocytes # 0.3 K/mcL (0.0-1.3); Monocytes % 7.5 %; Neutrophils # 2.7 K/mcL (1.6-8.9); Nucleated Red Blood Cells 0.6 /100 WBC (0); Red Blood Count 3.49 M/mcL (3.82-4.97); Segmented Neutrophils % 80.5 %
[2017-06-21 06:02] LABS: Calcium 8.1 mg/dL (8.6-10.8); Magnesium 2.6 mg/dL (1.6-2.6); Potassium 3.3 mEq/L (3.5-4.5)
[2017-06-21 06:06] LABS: Platelet Count 49 K/mcL (140-400)
[2017-06-21] MEDS ORDERED: Nitrofurantoin (BID) 100 MG CAPSULE PO SCH (08:00)
[2017-06-21] MEDS: Aspirin 81 MG TAB.CHEW PO SCH (08:54)
[2017-06-21] MEDS: Loratadine 10 MG TABLET PO SCH (08:54)
[2017-06-21] MEDS: Ascorbic Acid 500 MG TABLET PO SCH (08:55)
[2017-06-21] MEDS: Levofloxacin 250 MG/50 ML 250 MG/50 ML BAG IVPB SCH (14:18)
--- NOTE | 2017-06-21 15:54 | Electrocardiograph Report ---
[address] [place], [place] [address] Test Date: 2017-06-20 Pat Name: Susan Sullivan Department: 103 Room: 3B45 Gender: F Metal Neutralizer: DIDIER : 1935 Requested By: Moriah Monet Order Number: [id number] Reading MD: Sharmila Carbajal Measurements Intervals [place] Rate: 91 P: IN: 0 QRS: 13 QRSD: 103 T: 60 QT: 336 QTc: 385 Interpretive Statements ATRIAL FIBRILLATION MODERATE VOLTAGE CRITERIA FOR LVH, CONSIDER NORMAL VARIANT NONSPECIFIC ST & T-WAVE ABNORMALITY ABNORMAL RHYTHM ECG Electronically Signed On 06-21-2017 15:53:11 EST by Sharmila Carbajal
--- NOTE | 2017-06-21 16:07 | Electrocardiograph Report ---
[address] [place] [address] Test Date: 2017-06-20 Pat Name: Susan Sullivan Department: 103 Room: 3B45 Gender: F Supervisor Wound: DIDIER : 1935 Requested By: Milton Valdez Order Number: [id number] Reading MD: Sharmila Carbajal Measurements Intervals [place] Rate: 85 P: 34 GA: 120 QRS: 11 QRSD: 98 T: 42 QT: 371 QTc: 414 Interpretive Statements UNCLEAR UNDERLYING RHYTHM - BASELINE ARTIFACT VOLTAGE CRITERIA FOR LVH MODERATE T-WAVE ABNORMALITY, CONSIDER ANTERIOR ISCHEMIA Electronically Signed On 06-21-2017 16:06:03 EST by Sharmila Carbajal
--- NOTE | 2017-06-21 16:50 | Internal Med Progress Note ---
Date of Encounter: 06/21/17 Time of Encounter: 16:46 - Assessment and plan (1) Generalized weakness Current Visit: Yes Status: Acute Assessment and plan: Lives alone, presented with generalized weakness. Appears to be failure to thrive. Evaluated by PT/OT who is recommending SNF. electronics utility worker following for placement. (2) UTI (urinary tract infection) Current Visit: Yes Status: Acute Assessment and plan: UA not indicative of UTI however urine malodorous. Continue IV Levaquin for now. Repeat UA C&S Qualifiers: Urinary tract infection type: acute cystitis Hematuria presence: without hematuria Qualified Code(s): N30.00 - Acute cystitis without hematuria (3) Acute kidney injury superimposed on chronic kidney disease Current Visit: No Status: Acute Assessment and plan: Creatinine 1.7 on arrival which appears to be worse than baseline. Suspect prerenal MUKUL on CKD secondary to decreased PO intake. Continue gentle IV fluids. Monitor repeat renal function. (4) Hypokalemia Current Visit: Yes Status: Acute Assessment and plan: Potassium 2.7 on arrival, replaced. Repeat K3.3. Magnesium level pending. Monitor electrolytes and replace PRN (5) Protein calorie malnutrition Current Visit: No Status: Chronic Assessment and plan: Appears thin and frail cachectic. BMI 15. Albumin 3.2. Add high-protein supplements to meals. Qualifiers: Protein-calorie malnutrition severity: moderate Qualified Code(s): E44.0 - Moderate protein-calorie malnutrition (6) DVT prophylaxis Current Visit: No Status: Acute Assessment and plan: heparin - Time Spent With Patient less than 15 minutes - Subjective Interval history: Seen and examined at bedside. Patient is new to me, information obtained from chart review and patient report. Appears tearful, says she feels okay. She lives at home alone and is agreeable to short SNF stay. States she was to be home by [place]. With lower extremity edema, right greater than left. Patient says legs are typically more swollen than they are now. No chest pain, no shortness of breath. No dysuria. - Constitutional Vitals: Temp Pulse Resp BP Pulse Ox 98.1 F 48 16 149/72 94 06/21/17 15:06 06/21/17 15:06 06/21/17 15:06 06/21/17 15:06 06/21/17 15:06 General appearance: Present: cachectic, A&O X 3, pleasant, no acute distress - Head Head exam: Present: atraumatic, normocephalic - Eye Eye exam: Present: PERRL, conjuntiva pink, sclera anicteric Pupils: Present: PERRL - Neck Neck exam general surgery: Present: supple, trachea midline. Absent: lymphadenopathy - Respiratory Respiratory exam: Present: CTAB. Absent: accessory muscle use, rales, rhonchi, wheezes - Cardiovascular Cardiovascular exam: Present: RRR, +S1, +S2. Absent: diastolic murmur, gallop, rubs, systolic murmur - GI/Abdominal GI/Abdominal exam: Present: normal bowel sounds, soft, no peritoneal signs. Absent: distended, tenderness - Extremities Exam Extremities exam: Present: warm, radial pulses palpable and symmetrical. Absent : calf tenderness, cyanotic, pedal edema - Neurological Exam Neurological exam: Present: CN II-XII intact, oriented X3, no focal deficits. Absent: pronater drift, facial droop, speech deficit - Skin Skin exam: Present: dry, intact Internal Medicine: Result - Labs CBC & Chem 7: 06/21/17 05:29 06/21/17 05:29 Labs: Short CBC 06/21/17 Range/Units 05:29 WBC 3.3 L (4.3-11.1) K/mcL Hgb 9.5 L (11.5-15.4) g/dL Hct 31.5 L (35.3-44.9) % Plt Count 49 L (140-400) K/mcL Neutrophils # 2.7 (1.6-8.9) K/mcL BMP 06/21/17 05:29 Sodium 143 Potassium 3.3 L Chloride 114 H Carbon Dioxide 20 BUN 34 H Creatinine 1.59 H Glucose 116 H Calcium 8.1 L Consult Discharge Plan - Plan Referrals: Teo Darling MD [Primary Care Provider] -
[2017-06-21] MEDS ORDERED: clonazePAM 1 MG TABLET PO SCH (21:00)
[2017-06-21] MEDS: *HR* Heparin 5,000 UNIT/ML VIAL SQ SCH (21:38)
[2017-06-22] LABS: Bilirubin,Urine Negative (Negative); Blood,Urine Small (Negative); Clarity,Urine Cloudy (Clear); Color,Urine Yellow (Yellow); Glucose,Urine (UA) Normal (Normal); Ketones,Urine Negative (Negative); Leukocyte Esterase,Urine Small (Negative); Nitrite,Urine Negative (Negative); Protein,Urine 30 mg/dL (Neg-Trace); Specific Gravity,Urine 1.021 (1.010-1.025); Urobilinogen,Urine Normal (Normal)
[2017-06-22 00:15] LABS: Bacteria,Urine Moderate per hpf (None-Few)
[2017-06-22 00:16] LABS: RBC,Urine 0-3 per hpf (0-3); Squamous Epithelial Cell,Urine Few per lpf (None-Few); WBC,Urine 0-3 per hpf (0-3)
[2017-06-22 06:03] LABS: Calcium 7.1 mg/dL (8.6-10.8); Magnesium 1.9 mg/dL (1.6-2.6); Potassium 3.5 mEq/L (3.5-4.5)
[2017-06-22 06:13] LABS: Basophils % 0.3 %; Immature Granulocytes % 0.6 % (0-4)
[2017-06-22 06:15] LABS: Eosinophils # 0.2 K/mcL (0.0-0.6); Eosinophils % 6.7 %; Hemoglobin 8.7 g/dL (11.5-15.4); Immature Platelets 5.1 % (1.1-6.1); Lymphocytes # 0.7 K/mcL (0.6-4.6); Lymphocytes % 19.7 %; Mean Corpuscular HGB Conc 31.1 g/dL (31.6-35.5); Mean Corpuscular Hemoglobin 27.4 pg (28.0-33.3); Mean Corpuscular Volume 88.3 fL (83.0-100.0); Monocytes # 0.3 K/mcL (0.0-1.3); Monocytes % 7.5 %; Neutrophils # 2.3 K/mcL (1.6-8.9); Red Blood Count 3.17 M/mcL (3.82-4.97); Segmented Neutrophils % 65.2 %
[2017-06-22] MEDS: *HR* Heparin 5,000 UNIT/ML VIAL SQ SCH (06:27)
[2017-06-22 07:01] LABS: Anisocytosis 1+ (Not Present); Platelet Count 28 K/mcL (140-400); Platelet Estimate Marked Decrease (Normal); Poikilocytosis 1+ (Not Present); Polychromasia 1+ (Not Present)
[2017-06-22] MEDS: Ascorbic Acid 500 MG TABLET PO SCH (09:43)
[2017-06-22] MEDS: Loratadine 10 MG TABLET PO SCH (09:44)
[2017-06-22] MEDS: Aspirin 81 MG TAB.CHEW PO SCH (09:45)
[2017-06-22] MEDS: Levofloxacin 250 MG/50 ML 250 MG/50 ML BAG IVPB SCH (09:46)
[2017-06-22 14:52] VITALS: BP 137/73
--- NOTE | 2017-06-22 15:17 | Discharge Summary ---
Date of Encounter: 06/22/17 Time of Encounter: 15:15 - Discharge Diagnosis (1) Generalized weakness Priority: Primary Status: Acute Comments: Lives alone, presented with generalized weakness. Appears to be failure to thrive. Evaluated by PT/OT who is recommending SNF. Discharge to [facility] for continued skilled therapy. (2) UTI (urinary tract infection) Priority: Primary Status: Acute Comments: UA indicative of UTI. Received 2 doses IV Levaquin and patient. Continue for total course of 5 days. Urine culture pending discharge (06/13/17 urine culture with Escherichia coli; pansensitive). Follow culture and notify SNF if ATB needs to be changed. Qualifiers: Urinary tract infection type: acute cystitis Hematuria presence: without hematuria Qualified Code(s): N30.00 - Acute cystitis without hematuria (3) Acute kidney injury superimposed on chronic kidney disease Priority: Primary Status: Resolved Comments: Creatinine 1.7 on arrival which appears to be worse than baseline. Suspect prerenal MUKUL on CKD secondary to decreased PO intake. Renal function improved to baseline with gentle IV fluids. Can be intermittently monitor at SNF. (4) Hypokalemia Priority: Primary Status: Resolved Comments: K2.7 on arrival; improved with replacement. Magnesium level normal. Potassium 3.5 on day discharge. Electrolytes can be monitored at SNF (5) Protein calorie malnutrition Priority: Secondary Status: Chronic Comments: severe protein calorie malnutrition r/t inadequate food/beverage intake aeb BMI 15 and visible muscle/fat wasting all over, and weakness. Patient declined appetite stimulant. Continue protein supplements. Qualifiers: Protein-calorie malnutrition severity: severe Qualified Code(s): E43 - Unspecified severe protein-calorie malnutrition (6) Thrombocytopenia Priority: Secondary Status: Chronic Comments: per hx. follows with hematology outpatient. Etiology unknown per hematology. Evaluated by hematology on 06/14/2017 who noted no need for transfusion unless platelets drop below 10K and/or bleeding. Platelets 20 6K, no active bleeding. CBC can be monitored at SNF. (7) Anemia Priority: Secondary Status: Chronic Comments: per hx. has known iron deficiency anemia. Hgb 10.3 on arrival and dropped to 8.7. No active bleeding. Occult stool negative. Suspect dilutional component with IV fluids up was given to treat MUKUL. Hemodynamically stable. Continue home iron supplementation. Qualifiers: Anemia type: iron deficiency Iron deficiency anemia type: unspecified iron deficiency Qualified Code(s): D50.9 - Iron deficiency anemia, unspecified - Discharge Medications Prescriptions: levoFLOXacin [Levaquin] 250 mg PO DAILY #3 tablet Home Medications: Alendronate Sodium 70 mg PO QWEEK 05/10/16 [History] Aspirin 81 mg PO DAILY 05/10/16 [History] Omeprazole [PriLOSEC] 20 mg PO DAILY 05/10/16 [History] Sertraline [Zoloft] 150 mg PO DAILY 05/10/16 [History] clonazePAM [Clonazepam] 1 mg PO HS 05/10/16 [History] Ascorbic Acid [Vitamin C] 250 mg PO DAILY 04/14/17 [History] Fexofenadine HCl [Allergy Relief] 180 mg PO DAILY 04/14/17 [History] Ferrous Sulfate [Iron] 325 mg PO DAILY #0 06/13/17 [History] levoFLOXacin [Levaquin] 250 mg PO DAILY #3 tablet 06/22/17 [Rx] Allergies/Adverse Reactions: 3 Allergy/AdvReac Type Severity Reaction Status Date / Time phenobarbital Allergy Hives Verified 06/20/17 17:44 Procedures/tests Complete & Pending: Procedures Performed prior 72 hours Category Date Time Status ECG 12 lead ECG [ECG] Routine Y 06/20/17 19:34 Completed Venous Doppler [EV venous imaging LE BI] Routine Y 06/21/17 16:48 Completed Date of admission: 06/20/17 23:43 Primary care physician: Teo Darling MD Consults: 06/20/17 23:46 Consult to Occupational Therapy [CONS] Routine Comment: Evaluate, develop and implement POC Reason for Consult: ambulate and assess Consult to Physical Therapy [CONS] Routine Comment: Evaluate, develop and implement POC Reason for Consult: ambulate assess for placement need 06/21/17 18:54 Consult to Telegraphic Typewriter Installer [CONS] Routine Reason for SW Consult: ecf placement Discharging clinician: Moriah Monet Anticipated date of discharge: 06/22/17 - Patient Status Disposition: Transfer SNF Condition: Fair Functional capacity at discharge: uses cane/walker Overall status at discharge: patient is progressing back to baseline - Discharge Instructions Follow Up With: Teo Darling MD [Primary Care Provider] - - Diet and Activity Activity: as per physical therapy Diet: advance to your usual diet, other (Add ensure or house supplement every meal) Interval History: Seen and examined at bedside. Patient said she had an uneventful night and is ready for discharge when bed is available at facility. No active bleeding; she does report easily bruising. She specifically denies chest pain, no shortness of breath, no bowel pain, no nausea vomiting or diarrhea. Hospital course: See assessment and plan for hospital course. - Time Spent with Patient Total time spent providing and/or coordinating discharge services: - Constitutional Vitals: Temp Pulse Resp BP Pulse Ox 97.9 F 90 16 137/73 92 06/22/17 14:51 06/22/17 14:51 06/22/17 14:51 06/22/17 14:51 06/22/17 14:51 General appearance: Present: cachectic, A&O X 3, pleasant, no acute distress
--- NOTE | 2017-06-22 16:03 | Physician Discharge Referral ---
ExtendedCare Referral Info Transfer To: Counts Include [facility] At [facility] Provider in Charge: Moriah Monet CNP Provider in Charge after Transfer: PCP Institutional Level of Care: Skilled - Diagnosis (1) Generalized weakness Status: Acute (2) UTI (urinary tract infection) Status: Acute (3) Acute kidney injury superimposed on chronic kidney disease Status: Resolved (4) Hypokalemia Status: Resolved (5) Protein calorie malnutrition Status: Chronic (6) Thrombocytopenia Status: Chronic (7) Anemia Status: Chronic - Transfer Medications Prescriptions: levoFLOXacin [Levaquin] 250 mg PO DAILY #3 tablet Home Medications: Alendronate Sodium 70 mg PO QWEEK 05/10/16 [History] Aspirin 81 mg PO DAILY 05/10/16 [History] Omeprazole [PriLOSEC] 20 mg PO DAILY 05/10/16 [History] Sertraline [Zoloft] 150 mg PO DAILY 05/10/16 [History] clonazePAM [Clonazepam] 1 mg PO HS 05/10/16 [History] Ascorbic Acid [Vitamin C] 250 mg PO DAILY 04/14/17 [History] Fexofenadine HCl [Allergy Relief] 180 mg PO DAILY 04/14/17 [History] Ferrous Sulfate [Iron] 325 mg PO DAILY #0 06/13/17 [History] levoFLOXacin [Levaquin] 250 mg PO DAILY #3 tablet 06/22/17 [Rx] Allergies/Adverse Reactions: 3 Allergy/AdvReac Type Severity Reaction Status Date / Time phenobarbital Allergy Hives Verified 06/20/17 17:44 - Respiratory Orders Oxygen / L per min (2) Smoking Cessation: Smoking cessation has been advised. For more information, call the [place] Tobacco Quit Line at 5-261-YLOJ-NOW. - Advance Directives Code Status: Full Code - Mobility Orders Ambulate - Rehabiliation Orders Rehab Potential: Fair Rehab Orders: Evaluation for Physical Therapy, Evaluation for Occupational Therapy - Diet Orders Regular House Supplement per Dietary: High-protein diet CERTIFICATION: I certify that the transfer of the above named patient to an Extended Care Facility is necessary for the continuing treatment of the diagnosis listed. The above information is true and accurate reflection of patient's current condition. Confidential - Redisclosure prohibited without a patient's written consent.
== END 2017-06-22 18:55 | DRG 689 ==
LOC: EMEROO 17:37 → 3BNU 17:37
PROVIDERS: ADMIT Internal Medicine Hematology & Oncology; ATTEND Registered Nurse

== ENCOUNTER 2017-06-26 10:45 | Inpatient (IN) ==
--- NOTE | 2017-06-26 11:20 | Emergency Department Note ---
Disposition Clinical Impression: Thrombocytopenia, Weakness, Frail elderly, Petechial hemorrhage, Nosebleed, Renal insufficiency Disposition: Admitted As Inpatient Referrals: Teo Darling MD [Primary Care Provider] - Forms: ED Satisfaction Letter General Adult HPI - General Chief complaint: ED Recheck/Abnormal Lab/Rx Stated complaint: abnormal lab Source: patient, EMS Limitations: no limitations - History of Present Illness HPI Narrative: 82-year-old female brought in from the [facility] for concerns regarding thrombocytopenia. The patient was recently admitted to the hospital for weakness UTI and was placed in the nursing facility status post discharge. The patient reports she had a nosebleed but this has stopped. There is no history of nasal trauma. There has been no bleeding from any other source. No history of rectal bleeding or headache. No convulsions or confusion. No trouble moving the arms or legs and independently, no history of slurred speech or facial drooping. No chest pain shortness of breath abdominal pain or fever reported. No back pain. No falls or injuries. There is a history of generalized weakness. Pain Scale: 0 - Related Data Home Medications Medication Instructions Recorded Confirmed Alendronate Sodium 70 mg PO QWEEK 05/10/16 06/26/17 Aspirin 81 mg PO DAILY 05/10/16 06/26/17 Omeprazole [PriLOSEC] 20 mg PO DAILY 05/10/16 06/26/17 Sertraline [Zoloft] 150 mg PO DAILY 05/10/16 06/26/17 clonazePAM [Clonazepam] 1 mg PO HS 05/10/16 06/26/17 Ascorbic Acid [Vitamin C] 250 mg PO DAILY 04/14/17 06/26/17 Fexofenadine HCl [Allergy Relief] 180 mg PO DAILY 04/14/17 06/26/17 Ferrous Sulfate [Iron] 325 mg PO DAILY #0 06/13/17 06/26/17 Allergies Allergy/AdvReac Type Severity Reaction Status Date / Time phenobarbital Allergy Hives Verified 06/20/17 17:44 All systems ED: reviewed and negative except as stated. Past Medical History - Past Medical History Medical history: Reports: coronary artery disease, CVA, renal disease, other Surgical history: Reports: , cholecystectomy, other Psychiatric history: Reports: anxiety, depression - Social History Smoking Status: Never smoker Smokeless Tobacco Status: No Alcohol use: Reports: none Drug use: Reports: none Physical Exam - General Limitations: no limitations General appearance: alert, in no apparent distress - Head Head exam: atraumatic, normocephalic, normal inspection - Eye Eye exam: Present: normal appearance, PERRL, EOMI - ENT ENT exam: normal exam, normal oropharynx, mucous membranes moist, TM's normal bilaterally, normal external ear exam - Neck Neck exam: Present: normal inspection, full ROM, trachea midline - Chest Chest inspection: Present: symmetric chest wall rise. Absent: tenderness - Respiratory Respiratory exam: Present: normal lung sounds bilaterally. Absent: respiratory distress, wheezes, accessory muscle use, prolonged expiratory phase - Cardiovascular Cardiovascular exam: Present: regular rate, normal rhythm, normal heart sounds - Abdominal Exam Abdominal exam: Present: soft, Non-Tender. Absent: tenderness, distention, guarding, rebound, rigidity - Extremities Exam Extremities exam: Present: full ROM, normal capillary refill. Absent: tenderness, pedal edema, joint swelling, calf tenderness - Expanded Lower Extremity Exam Lower leg exam: Absent: Homans' sign Neurovascular/Tendon exam: Present: normal capillary refill. Absent: motor deficit, sensory deficit, tendon deficit, extremity cold to touch, pallor - Back Exam Back exam: Present: normal inspection. Absent: full ROM, CVA tenderness (R), CVA tenderness (L), vertebral tenderness - Neurological Exam Neurological exam: Present: alert, oriented X3, CN II-XII intact. Absent: motor sensory deficit - Psychiatric Psychiatric exam: Present: normal affect - Skin Skin exam: Present: warm, dry, intact, normal color, other (Petechiae in various locations) Course Vital Signs Temperature 97.9 F 06/26/17 10:50 Pulse Rate 87 06/26/17 10:50 Respiratory Rate 16 06/26/17 10:50 Blood Pressure 122/72 06/26/17 10:50 O2 Sat by Pulse Oximetry 100 06/26/17 10:50 Temperature 97.9 F 06/26/17 10:50 Pulse Rate 83 06/26/17 11:45 Respiratory Rate 16 06/26/17 11:45 Blood Pressure 142/80 06/26/17 11:45 O2 Sat by Pulse Oximetry 100 06/26/17 11:45 Oxygen Delivery Oxygen Delivery Room Air Medical Decision Making - [facility] Narrative Medical decision making narrative: Patient is elderly, she feels very weak, she has notable thrombocytopenia with platelets in the 10,000 range, she displays petechial hemorrhage in multiple places, she also has had nasal bleeding. Based on her age, severe thrombocytopenia, and evidence of bleeding, I thought it would be appropriate to admit the patient to the hospital. I reviewed the case with the hospitalist on-call who has accepted the patient to their care. The patient is currently stable, she is agreeable. IV access has been established. Hematolgy was also consulted, Dr. Hamilton. - Lab Data Lab results reviewed: Yes I reviewed the patient's lab results. Result diagrams: 06/26/17 11:15 Lab Results 06/26/17 06/26/17 Range/Units 11:15 11:15 PT 11.3 (9.4-12.1) Seconds INR 1.1 APTT 30.8 (26.0-36.0) Seconds Sodium 139 (136-145) mEq/L Potassium 3.5 (3.5-4.5) mEq/L Chloride 114 H (98-109) mEq/L Carbon Dioxide 21 (19-29) mEq/L BUN 23 H (7-20) mg/dL Creatinine 1.30 H (0.57-1.11) mg/dL Est GFR ( Amer) 48 L (> 60) Est GFR (Non-Af Amer) 39 L (> 60) BUN/Creatinine Ratio 18 (6-26) Glucose 91 (70-99) mg/dL Calculated Osmolality 291 (280-300) Calcium 7.5 L (8.6-10.8) mg/dL Total Bilirubin 0.3 (0.2-1.2) mg/dL AST 8 (5-34) Units/L ALT 13 (0-55) Units/L Alkaline Phosphatase 54 (38-126) Units/L Serum Total Protein 5.5 L (6.0-8.3) g/dL Albumin 2.2 L (3.5-5.0) g/dL Globulin 3.3 (2.4-3.5) g/dL Albumin/Globulin Ratio 0.7 L (1.1-2.2)
[2017-06-26 11:28] LABS: INR 1.1; Prothrombin Time 11.3 Seconds (9.4-12.1)
[2017-06-26 11:31] LABS: Activated Partial Thrombo Time 30.8 Seconds (26.0-36.0)
[2017-06-26 11:53] LABS: Albumin 2.2 g/dL (3.5-5.0); Albumin/Globulin Ratio 0.7 (1.1-2.2); Bilirubin,Total 0.3 mg/dL (0.2-1.2); Calcium 7.5 mg/dL (8.6-10.8); Globulin 3.3 g/dL (2.4-3.5); Potassium 3.5 mEq/L (3.5-4.5); Total Protein 5.5 g/dL (6.0-8.3)
[2017-06-26] MEDS ORDERED: Naloxone 0.4 MG/ML INJ IVP PRN (13:39)
[2017-06-26] MEDS ORDERED: NON-FORMULARY MEDICATION 1 EACH EACH (Alendronate Sodium [Alendronate Sodium] 70 MG) PO SCH (13:45)
--- NOTE | 2017-06-26 14:00 | Internal Med History&Physical ---
<Fredi Nelson - Last Filed: 06/26/17 13:58> Date of Encounter: 06/26/17 Time of Encounter: 13:58 Assessment and Plan (1) Thrombocytopenia Current visit: Yes Status: Chronic Thrombocytopenia with platelets of 10,000, etiology unknown Reports an episode of epistaxis yesterday lasting approximately one half hour; denies trauma Denies any hematemesis, hematochezia or melena; however, she is having black tarry stools Per my assessment she appears pale, conjunctiva pale, has petechial hemorrhaging of BUE, BLE And trunk. Normal sinus rhythm, RRR, S1, S2, remains hemodynamically stable, in no distress She is alert and oriented, no neurological deficits, no abdominal pain but due to tarry stools will check occult stool Placing patient on her acuity unit, 2 North for closer monitoring -Hematology/oncology has been consulted for further recommendations and evaluation And will see the patient this afternoon-recommendations are as follows -Coagulation panel including PTT, fibrinogen and d-dimer; PT/INR completed- As per my conversation with oncology patient will need bone marrow biopsy Oncology to schedule -Continue to monitor H&H every 4 hours or more frequently if she is actively bleeding -Type and screen for the Potential need for blood products -Transfuse a 6 pack of platelets now -Strict bedrest she is high risk for bleeding -Continuous telemetry, continuous O2 monitoring (2) Petechial hemorrhage Current visit: Yes Status: Acute Secondary to trauma cytopenia of unknown etiology. See plan above (3) Nosebleed Current visit: Yes Status: Resolved (4) Generalized weakness Current visit: Yes Status: Acute Generalized weakness for greater than 1 month. Was recently here and treated for generalized weakness and urinary tract infection and discharged to LTAC. Generalized weakness persists. Patient currently at [facility] for thrombocytopenia and epistaxis. She will need a social service technician consult to return to [facility] Hold PT/OT consult for now due to high risk for bleeding (5) Frail elderly Current visit: Yes Status: Acute See plan above (6) Anemia Current visit: Yes Status: Chronic Stable at this time. However, I am concerned as she presents today with thrombocytopenia with platelets of 10,000, and melena Qualifiers: Anemia type: iron deficiency Iron deficiency anemia type: unspecified iron deficiency Qualified Code(s): D50.9 - Iron deficiency anemia, unspecified (7) CKD (chronic kidney disease) Current visit: Yes Status: Acute Serum creatinine at baseline. Has chronic kidney disease, recheck serum creatinine in the morning Qualifiers: Chronic kidney disease stage: stage 3 (moderate) Qualified Code(s): N18.3 - Chronic kidney disease, stage 3 (moderate) Internal Medicine - H&P: HPI Chief complaint: Thrombocytopenia Admitted From: Home Plans for Post Hospital Care: Home History of present illness: Ms. Sullivan is a 82 year old female with past medical history of CAD, CVA and renal disease. She presents from a halfway facility with concerns for thrombocytopenia. She was recently admitted to [facility] for weakness and UTI and was subsequently sent to nursing facility following discharge. She reports that she developed a nosebleed last night lasting approximately one half of an hour. She denies any nasal trauma and no prior history of bleeding or clotting disorders. No known source of bleed. She denies any fever, fatigue, weight loss, appetite change, night sweats, chest pain, hemoptysis, abdominal pain, shortness of breath, arthralgias or myalgias. Denies any neurological symptoms. Due to, cytopenia of unknown etiology C is being admitted for further workup and evaluation, she is a severe bleeding risk. Past Med Surg Social Fam HX - Past Medical History Medical history: coronary artery disease, CVA, renal disease, other Psychiatric history: anxiety, depression - Past Surgical History Surgical History: , cholecystectomy, other - Social History Smoking Status: Never smoker Smokeless Tobacco Status: No Alcohol use: none Drug use: none - Family History Mother Living Status: Hx Family Cardiac Disorders: Yes Hx Family Respiratory Disorders: No Hx Family Cancer: No Hx Family GI Disorders: No Hx Family Genitourinary Disorders: Yes (one kidney) Hx Family Endocrine Disorder: No Hx Family Musculoskeletal Disorders: No Hx Family Neuromuscular Disorders: No Hx Family Neurologic Disorders: No Hx Family HEENT Disorders: No Hx Family Autoimmune Disorders: No Hx Family Reproductive Disorders: No Hx Family Psychosocial Disorders: No Hx Family Medical Disorders: No Father Living Status: Hx Family Cardiac Disorders: No Hx Family Respiratory Disorders: No Hx Family Cancer: No Hx Family GI Disorders: No Hx Family Genitourinary Disorders: No Hx Family Endocrine Disorder: No Hx Family Musculoskeletal Disorders: No Hx Family Neuromuscular Disorders: No Hx Family Neurologic Disorders: No Hx Family HEENT Disorders: No Hx Family Autoimmune Disorders: No Hx Family Reproductive Disorders: No Hx Family Psychosocial Disorders: No Hx Family Medical Disorders: Yes (hernia) Internal Medicine - H&P: Meds Alendronate Sodium 70 mg PO QWEEK 05/10/16 [History] Aspirin 81 mg PO DAILY 05/10/16 [History] Omeprazole [PriLOSEC] 20 mg PO DAILY 05/10/16 [History] Sertraline [Zoloft] 150 mg PO DAILY 05/10/16 [History] clonazePAM [Clonazepam] 1 mg PO HS 05/10/16 [History] Ascorbic Acid [Vitamin C] 250 mg PO DAILY 04/14/17 [History] Fexofenadine HCl [Allergy Relief] 180 mg PO DAILY 04/14/17 [History] Ferrous Sulfate [Iron] 325 mg PO DAILY #0 06/13/17 [History] 3 Allergy/AdvReac Type Severity Reaction Status Date / Time phenobarbital Allergy Hives Verified 06/20/17 17:44 All Systems PM: A 10-system review of systems was performed and is negative for pertinent findings except as documented above in the HPI. - Constitutional Constitutional: fatigue, no chills, no fever(s), no night sweats - EENT Eyes: no change in vision, no discharge, no pain, no photophobia Ears: no ear discharge, no ear pain, no tinnitus Nose, mouth and throat: epistaxis, no dysphagia, no mouth lesions, no nasal discharge, no neck pain, no sore throat - Cardiovascular Cardiovascular ROS IM: no chest pain, no diaphoresis, no dyspnea, no lightheadedness, no palpitations, no syncope - Respiratory Respiratory: no cough, no dyspnea, no hemoptysis, no wheezing, no excessive phlegm production - Gastrointestinal Gastrointestinal: early satiety, no abdominal pain, no coffee ground emesis, no diarrhea, no hematemesis, no hematochezia, no melena, no nausea, no vomiting - Genitourinary Genitourinary: no change in urinary stream, no dysuria, no flank pain, no hematuria - Musculoskeletal Musculoskeletal ROS IM: no deformity, no joint swelling, no numbness, no tingling - Integumentary Integumentary IM: other, no rash, no unusual bruising Additional comments: Petechial hemorrhaging scattered throughout trunk, bilateral upper extremity and bilateral lower extremity - Neurological Neurological ROS: no abnormal hearing, no abnormal speech, no confusion, no convulsions, no dizziness, no focal weakness, no headache(s), no numbness, no tingling, no tremor(s) - Hematologic/Lymphatic Hematologic/Lymphatic: easy bleeding, no easy bruising - Constitutional Vitals: Temp Pulse Resp BP Pulse Ox 97.9 F 83 16 142/80 100 06/26/17 10:50 06/26/17 11:45 06/26/17 11:45 06/26/17 11:45 06/26/17 11:45 General appearance: Present: cooperative, mild distress, A&O X 3, answers questions appropriately - Head Head exam: Present: atraumatic, normocephalic - Eye Eye exam: Present: PERRL, conjuntiva pink, sclera anicteric. Absent: conjunctival injection Pupils: Present: PERRL - Neck Neck exam general surgery: Present: supple, trachea midline. Absent: lymphadenopathy - Respiratory Respiratory exam: Present: CTAB. Absent: accessory muscle use, rales, rhonchi, wheezes, tachypnea - Cardiovascular Cardiovascular exam: Present: RRR, +S1, +S2. Absent: diastolic murmur, gallop, rubs, systolic murmur, tachycardia - GI/Abdominal GI/Abdominal exam: Present: normal bowel sounds, soft, no peritoneal signs. Absent: distended, firm, hepatomegaly, rigid, splenomegaly, tenderness - Extremities Exam Extremities exam: Present: warm, radial pulses palpable and symmetrical. Absent : calf tenderness, cyanotic, pedal edema - Neurological Exam Neurological exam: Present: alert, CN II-XII intact, oriented X3, no focal deficits. Absent: pronater drift, facial droop, speech deficit - Skin Skin exam: Present: dry, petechiae (trunk, BUE, BLE) Internal Med - H&P Results - Labs CBC & Chem 7: 06/26/17 11:15 - EKG Data -: EKG Interpreted by Myself EKG shows normal: sinus rhythm Rate: normal - EKG Data Prior EKG available for review: yes When compared to previous EKG: there is no significant change Interpretation IM: normal EKG - VTE Reasons for not Prescribing Prophylaxis: Medical contraindication <Bud Aly - Last Filed: 06/26/17 15:01> Date of Encounter: 06/26/17 Internal Medicine - H&P: HPI History of present illness: Ms. Sullivan is a 82 year old female All Systems PM: A 10-system review of systems was performed and is negative for pertinent findings except as documented above in the HPI. - Constitutional Vitals: Temp Pulse Resp BP Pulse Ox 98.5 F 83 16 163/75 99 06/26/17 14:49 06/26/17 14:49 06/26/17 14:49 06/26/17 14:49 06/26/17 14:49 Internal Med - H&P Results - Labs CBC & Chem 7: 06/26/17 11:15 - Attending Attestation I examined this patient and my medical decision-making was reviewed with the Resident Physician. I agree with the documented findings, disposition and treatment plan as described except to the extent set forth below.
[2017-06-26] MEDS ORDERED: *HR* Metoprolol 5 MG/5 ML VIAL IVP PRN (14:18)
[2017-06-26] MEDS ORDERED: 0.9 % Sodium Chloride 500 ML ONE (14:36)
[2017-06-26 14:55] LABS: Mean Corpuscular Hemoglobin 27.3 pg (28.0-33.3); Red Cell Distribution Width 15.4 % (11.5-14.5)
[2017-06-26 14:56] LABS: Hematocrit 31.9 % (35.3-44.9); Hemoglobin 9.9 g/dL (11.5-15.4); Immature Platelets 15.8 % (1.1-6.1); Mean Corpuscular Volume 87.9 fL (83.0-100.0); Red Blood Count 3.63 M/mcL (3.82-4.97)
[2017-06-26 15:02] LABS: Platelet Count 15 K/mcL (140-400)
--- NOTE | 2017-06-26 16:41 | Oncology Inp Consult Note ---
<Elizabeth Hamilton E - Last Filed: 06/26/17 16:53> Date of Encounter: 06/26/17 Time of Encounter: 15:40 Assessment and Plan (1) Petechial hemorrhage Status: Acute (2) Thrombocytopenia Status: Chronic Assessment and plan: Transfuse platelets as needed. Obtain bone marrow bx per IR. Will continue to follow. - Data of Consult Patient: known to practice within the last 3 years Requesting Physician: Moriah Monet CNP Primary Care Provider: Teo Darling MD - Consult Narrative Reason for consult: thrombocytopenia History of present illness: Ms. Sullivan is a 82 year old female [facility] concerns regarding thrombocytopenia. The patient was recently admitted to the hospital for weakness UTI and was placed in the nursing facility status post discharge. During her last admission if was felt that worsening of thrombocytopenia could be related to infection. She reports that she had a "little" nosebleed yesterday and noticed red dots all over her body. She denies abnormal bleeding from other areas. There is no history of nasal trauma. She does report having generalized weakness and ongoing incontinence. She has been following in the clinic with Dr. Cisneros. Thrombocytopenia has been progressive since 2015 at that time platelets were in the 90,000 range. At the time of her last f/u with Dr. Cisneros platelets were in the 45,000 range during recent hospitalization in the 20,000 range and at time of admission 10,000. SHe was found to have scatter petechiae. Anemia has also been progressive. She has a past medical history positive for coronary artery disease, CVA, chronic kidney disease stage III, depression and sacral decubitus ulcer. Etiology of thrombocytopenia is unknown. We will obtain bone marrow study. Transfuse 6 pack of platelets. Past Med Surg Social Fam HX - Past Medical History Medical history: coronary artery disease, CVA, renal disease, other Psychiatric history: anxiety, depression - Past Surgical History Surgical History: , cholecystectomy, other - Social History Smoking Status: Never smoker Smokeless Tobacco Status: No Alcohol use: none Drug use: none - Family History Mother Living Status: Hx Family Cardiac Disorders: Yes Hx Family Respiratory Disorders: No Hx Family Cancer: No Hx Family GI Disorders: No Hx Family Genitourinary Disorders: Yes (one kidney) Hx Family Endocrine Disorder: No Hx Family Musculoskeletal Disorders: No Hx Family Neuromuscular Disorders: No Hx Family Neurologic Disorders: No Hx Family HEENT Disorders: No Hx Family Autoimmune Disorders: No Hx Family Reproductive Disorders: No Hx Family Psychosocial Disorders: No Hx Family Medical Disorders: No Father Living Status: Hx Family Cardiac Disorders: No Hx Family Respiratory Disorders: No Hx Family Cancer: No Hx Family GI Disorders: No Hx Family Genitourinary Disorders: No Hx Family Endocrine Disorder: No Hx Family Musculoskeletal Disorders: No Hx Family Neuromuscular Disorders: No Hx Family Neurologic Disorders: No Hx Family HEENT Disorders: No Hx Family Autoimmune Disorders: No Hx Family Reproductive Disorders: No Hx Family Psychosocial Disorders: No Hx Family Medical Disorders: Yes (hernia) Medications and Allergies Alendronate Sodium 70 mg PO QWEEK 05/10/16 [History] Aspirin 81 mg PO DAILY 05/10/16 [History] Omeprazole [PriLOSEC] 20 mg PO DAILY 05/10/16 [History] Sertraline [Zoloft] 150 mg PO DAILY 05/10/16 [History] clonazePAM [Clonazepam] 1 mg PO HS 05/10/16 [History] Ascorbic Acid [Vitamin C] 250 mg PO DAILY 04/14/17 [History] Fexofenadine HCl [Allergy Relief] 180 mg PO DAILY 04/14/17 [History] Ferrous Sulfate [Iron] 325 mg PO DAILY #0 06/13/17 [History] 3 Allergy/AdvReac Type Severity Reaction Status Date / Time phenobarbital Allergy Hives Verified 06/20/17 17:44 All systems: reviewed and no additional remarkable complaints except as stated Constitutional: Present: fatigue, weakness Cardiovascular: Absent: chest pain, chest pain at rest, edema, irregular heart rhythm, leg edema, palpitations, rapid heart rate Respiratory: Absent: cough, dyspnea, hemoptysis, wheezing Gastrointestinal: Absent: abdominal pain, bloating, change in bowel habits, change in stool character, heartburn, hematemesis, melena, nausea Genitourinary: Present: urinary incontinence Musculoskeletal: Present: muscle weakness Neurological: Present: weakness Psychiatric: Present: depression (wants to go home for brenda"Just for 1 day ".) Hematologic/Lymphatic: Present: other (petechiae) Oncology - Exam - Constitutional Vitals: Temp Pulse Resp BP Pulse Ox 98.3 F 84 16 135/77 98 06/26/17 15:52 06/26/17 15:52 06/26/17 15:52 06/26/17 15:52 06/26/17 15:52 General appearance: cooperative, no acute distress - Head Head exam: Present: normal inspection, normocephalic - Eye Eye exam: Present: normal appearance - ENT ENT exam: Present: mucous membranes moist Additional comments: no epistaxis - Neck Neck exam: Present: normal inspection - Respiratory Respiratory exam: Present: CTAB - Cardiovascular Cardiovascular exam: Present: RRR - GI/Abdominal GI/Abdominal exam: Present: normal bowel sounds, soft (non tender) - Extremities Exam Additional comments: petechiae noted on arms - Neurological Exam Neurological exam: Present: alert, oriented X3, strengths equal and symetr throughout. Absent: facial droop, speech deficit - Psychiatric Psychiatric exam: Present: depressed (want to go home for brenda) - Skin Skin exam: Present: petechiae (over arms, legs, abdomen, chest and back) Oncology - Results Labs: Short CBC 06/26/17 Range/Units 14:07 WBC 5.0 (4.3-11.1) K/mcL Hgb 9.9 L (11.5-15.4) g/dL Hct 31.9 L (35.3-44.9) % Plt Count 15 L* (140-400) K/mcL Consult Discharge Plan - Plan Referrals: Teo Darling MD [Primary Care Provider] - <DixieUriel Garrett - Last Filed: 06/26/17 17:23> Date of Encounter: 06/26/17 - Data of Consult Requesting Physician: Moriah Monet CNP Primary Care Provider: Teo Darling MD - Consult Narrative History of present illness: Ms. Sullivan is a 82 year old female Oncology - Exam - Constitutional Vitals: Temp Pulse Resp BP Pulse Ox 98.3 F 84 18 144/81 99 06/26/17 15:52 06/26/17 16:32 06/26/17 16:30 06/26/17 16:30 06/26/17 16:30 Oncology - Results Labs: Short CBC 06/26/17 Range/Units 14:07 WBC 5.0 (4.3-11.1) K/mcL Hgb 9.9 L (11.5-15.4) g/dL Hct 31.9 L (35.3-44.9) % Plt Count 15 L* (140-400) K/mcL - Attending Attestation I examined this patient and my medical decision-making was reviewed with the Advanced Practice Nurse. I agree with the documented findings, disposition and treatment plan as described except to the extent set forth below. She has worsening thrombocytopenia since 2015. Given her persistent decline in platelet number, and underlying bone marrow malignancy is certainly a possibility. Hepatitis serologies are negative. As such, we will arrange for bone marrow aspirate and biopsy. I would transfuse if her platelets are 10,000 or below and less bleeding. She is also noted to have iron deficiency anemia. I have ordered one dose of injectafer to help with recovery from anemia.
[2017-06-26 18:39] LABS: Hematocrit 29.2 % (35.3-44.9); Mean Corpuscular HGB Conc 30.8 g/dL (31.6-35.5); Red Cell Distribution Width 15.3 % (11.5-14.5)
[2017-06-26 18:41] LABS: Immature Platelets 7.7 % (1.1-6.1); Mean Corpuscular Hemoglobin 27.2 pg (28.0-33.3); Mean Corpuscular Volume 88.2 fL (83.0-100.0); Red Blood Count 3.31 M/mcL (3.82-4.97)
[2017-06-26 18:54] LABS: Platelet Count 31 K/mcL (140-400)
[2017-06-26] MEDS: clonazePAM 1 MG TABLET PO SCH (20:36)
[2017-06-26 22:37] LABS: Hematocrit 30.4 % (35.3-44.9); Hemoglobin 9.2 g/dL (11.5-15.4); Mean Corpuscular HGB Conc 30.3 g/dL (31.6-35.5); Mean Corpuscular Hemoglobin 27.4 pg (28.0-33.3); Mean Corpuscular Volume 90.5 fL (83.0-100.0); Red Blood Count 3.36 M/mcL (3.82-4.97); Red Cell Distribution Width 15.4 % (11.5-14.5)
[2017-06-26 22:39] LABS: Platelet Count 33 K/mcL (140-400)
[2017-06-27 04:42] LABS: Red Cell Distribution Width 15.2 % (11.5-14.5)
[2017-06-27 04:44] LABS: Hemoglobin 9.2 g/dL (11.5-15.4); Immature Platelets 11.3 % (1.1-6.1); Mean Corpuscular HGB Conc 31.7 g/dL (31.6-35.5); Mean Corpuscular Hemoglobin 27.5 pg (28.0-33.3); Mean Corpuscular Volume 86.8 fL (83.0-100.0); Red Blood Count 3.34 M/mcL (3.82-4.97)
[2017-06-27 04:45] LABS: Prothrombin Time 11.1 Seconds (9.4-12.1)
[2017-06-27 04:48] LABS: Activated Partial Thrombo Time 30.9 Seconds (26.0-36.0); Albumin 2.5 g/dL (3.5-5.0); Albumin/Globulin Ratio 0.8 (1.1-2.2); Bilirubin,Total 0.3 mg/dL (0.2-1.2); Calcium 8.3 mg/dL (8.6-10.8); Globulin 3.1 g/dL (2.4-3.5); Potassium 3.7 mEq/L (3.5-4.5); Total Protein 5.6 g/dL (6.0-8.3)
[2017-06-27 05:17] LABS: Platelet Count 26 K/mcL (140-400)
[2017-06-27 07:04] LABS: Red Blood Count 3.46 M/mcL (3.82-4.97)
[2017-06-27 07:06] LABS: Hematocrit 29.6 % (35.3-44.9); Hemoglobin 9.5 g/dL (11.5-15.4); Immature Platelets 10.4 % (1.1-6.1); Mean Corpuscular HGB Conc 32.1 g/dL (31.6-35.5); Mean Corpuscular Hemoglobin 27.5 pg (28.0-33.3); Mean Corpuscular Volume 85.5 fL (83.0-100.0); Red Cell Distribution Width 15.2 % (11.5-14.5)
[2017-06-27 07:53] LABS: Platelet Count 27 K/mcL (140-400)
--- NOTE | 2017-06-27 08:01 | Internal Med Progress Note ---
<Russell Samuels - Last Filed: 06/27/17 09:33> Date of Encounter: 06/27/17 Time of Encounter: 07:59 - Assessment and plan (1) Thrombocytopenia Current Visit: Yes Status: Chronic Assessment and plan: Progressive decline since 2014 Transfused platelets yesterday Responded well to platelet infusion with Plt 15 to 33 - Unlikely ITP at this point and concern is for underlying bone malignancy Coags within normal limits Onc following - appreciate recommendations Plan: - IR bone biopsy tomorrow morning for further investigation - NPO midnight - Transfuse Plt if less than 10,000 - Close monitoring with telemetry and O2 pulse ox - Bed rest (2) Petechial hemorrhage Current Visit: Yes Status: Acute Assessment and plan: Etiology likely due to thrombocytopenia. See plan above (3) Anemia Current Visit: Yes Status: Chronic Assessment and plan: Hgb up to 9.5 after one dose of Injectafer Continue oral supplements Will continue to follow Qualifiers: Anemia type: iron deficiency Iron deficiency anemia type: unspecified iron deficiency Qualified Code(s): D50.9 - Iron deficiency anemia, unspecified (4) CKD (chronic kidney disease) Current Visit: Yes Status: Chronic Assessment and plan: Appears to be better than baseline and improving Cr down to 1.15 from 1.30 Avoid Nephrotoxics Recheck tomorrow Qualifiers: Chronic kidney disease stage: stage 3 (moderate) Qualified Code(s): N18.3 - Chronic kidney disease, stage 3 (moderate) - Subjective Interval history: Patient is resting comfortable in bed this morning. No concerns per nursing overnight. Denies any new complaints. No recurrent epistaxis, hematuria, hemoptysis, melena or hematoochezia. - Constitutional Vitals: Temp Pulse Resp BP Pulse Ox 98 F 80 21 155/74 98 06/27/17 04:27 06/27/17 04:27 06/27/17 04:27 06/27/17 04:27 06/27/17 04:27 General appearance: Present: cooperative, mild distress, A&O X 3, answers questions appropriately - Head Head exam: Present: atraumatic, normocephalic - Eye Eye exam: Present: EOMI, normal appearance - Neck Neck exam general surgery: Present: supple, trachea midline - Respiratory Respiratory exam: Present: CTAB. Absent: respiratory distress - Cardiovascular Cardiovascular exam: Present: RRR, +S1, +S2 - GI/Abdominal GI/Abdominal exam: Present: normal bowel sounds, soft. Absent: tenderness - Extremities Exam Extremities exam: Present: warm. Absent: pedal edema, tenderness - Neurological Exam Neurological exam: Present: alert, oriented X3, no focal deficits - Psychiatric Psychiatric exam: Present: depressed - Skin Skin exam: Present: petechiae (about bilateral arms, legs, abdomen, chest and back) Internal Medicine: Result - Labs CBC & Chem 7: 06/27/17 06:53 06/27/17 04:13 Labs: Short CBC 06/26/17 06/27/17 06/27/17 Range/Units 22:22 04:13 06:53 WBC 5.6 5.1 4.5 (4.3-11.1) K/mcL Hgb 9.2 L 9.2 L 9.5 L (11.5-15.4) g/dL Hct 30.4 L 29.0 L 29.6 L (35.3-44.9) % Plt Count 33 L 26 L* 27 L* (140-400) K/mcL BMP 06/27/17 04:13 Sodium 139 Potassium 3.7 Chloride 112 H Carbon Dioxide 20 BUN 22 H Creatinine 1.15 H Glucose 84 Calcium 8.3 L Liver Function 06/27/17 Range/Units 04:13 Total Bilirubin 0.3 (0.2-1.2) mg/dL AST 9 (5-34) Units/L ALT 9 (0-55) Units/L Alkaline Phosphatase 52 (38-126) Units/L Albumin 2.5 L (3.5-5.0) g/dL - ABG Interpretation ABG results: PT/INR, D-dimer PT 11.1 Seconds (9.4-12.1) 06/27/17 04:13 D-Dimer 1706 ng/mLFEU (0-500) H 06/26/17 14:01 - VTE Reasons for not Prescribing Prophylaxis: Medical contraindication Consult Discharge Plan - Plan Referrals: Teo Darling MD [Primary Care Provider] - <Mahad Sung - Last Filed: 06/27/17 15:39> Date of Encounter: 06/27/17 - Constitutional Vitals: Temp Pulse Resp BP Pulse Ox 98.5 F 91 18 140/79 97 06/27/17 14:32 06/27/17 14:32 06/27/17 14:32 06/27/17 14:32 06/27/17 14:32 Internal Medicine: Result - Labs CBC & Chem 7: 06/27/17 10:05 06/27/17 04:13 Labs: Short CBC 06/26/17 06/27/17 06/27/17 Range/Units 22:22 04:13 06:53 WBC 5.6 5.1 4.5 (4.3-11.1) K/mcL Hgb 9.2 L 9.2 L 9.5 L (11.5-15.4) g/dL Hct 30.4 L 29.0 L 29.6 L (35.3-44.9) % Plt Count 33 L 26 L* 27 L* (140-400) K/mcL 06/27/17 Range/Units 10:05 WBC 4.3 (4.3-11.1) K/mcL Hgb 9.2 L (11.5-15.4) g/dL Hct 29.2 L (35.3-44.9) % Plt Count 30 L* (140-400) K/mcL BMP 06/27/17 04:13 Sodium 139 Potassium 3.7 Chloride 112 H Carbon Dioxide 20 BUN 22 H Creatinine 1.15 H Glucose 84 Calcium 8.3 L Liver Function 06/27/17 Range/Units 04:13 Total Bilirubin 0.3 (0.2-1.2) mg/dL AST 9 (5-34) Units/L ALT 9 (0-55) Units/L Alkaline Phosphatase 52 (38-126) Units/L Albumin 2.5 L (3.5-5.0) g/dL - ABG Interpretation ABG results: PT/INR, D-dimer PT 11.1 Seconds (9.4-12.1) 06/27/17 04:13 D-Dimer 1706 ng/mLFEU (0-500) H 06/26/17 14:01 - Attending Attestation I conducted a face to face diagnostic evaluation of this patient and my medical decision-making was reviewed with the Resident Physician, Dr Russell Samuels. I agree with the documented findings, disposition and treatment plan as described except to the extent set forth below: Patient reports that her epistaxis has resolved. She presented with thrombocytopenia with a platelet count of 15,000. Platelet count improved with transfusion. Plan: Bone marrow biopsy tomorrow. All this patient's medical problems are new to me today. Mahad Sung MD
[2017-06-27] MEDS: Ascorbic Acid 500 MG TABLET PO SCH (09:00)
[2017-06-27] MEDS: Aspirin 81 MG TAB.CHEW PO SCH ×2 (09:01→09:02)
[2017-06-27] MEDS: Loratadine 10 MG TABLET PO SCH (09:01)
[2017-06-27 10:13] LABS: Hematocrit 29.2 % (35.3-44.9); Red Cell Distribution Width 15.1 % (11.5-14.5)
[2017-06-27 10:14] LABS: Hemoglobin 9.2 g/dL (11.5-15.4); Immature Platelets 8.1 % (1.1-6.1); Mean Corpuscular HGB Conc 31.5 g/dL (31.6-35.5); Mean Corpuscular Hemoglobin 27.5 pg (28.0-33.3); Mean Corpuscular Volume 87.4 fL (83.0-100.0); Red Blood Count 3.34 M/mcL (3.82-4.97)
[2017-06-27 10:17] LABS: Platelet Count 30 K/mcL (140-400)
[2017-06-27] MEDS ORDERED: Iron Sucrose Complex 400 MG in 0.9 % Sodium Chloride 250 ML IVPB ONE (13:48)
--- NOTE | 2017-06-27 14:52 | Oncology Inp Progress Note ---
<Carla Rodriguez L - Last Filed: 06/27/17 16:41> Date of Encounter: 06/27/17 Time of Encounter: 13:30 (1) Thrombocytopenia Current Visit: Yes Status: Chronic Assessment and plan: Platelets responding to platelet transfusion, currently increased to 30,000, making diagnosis of ITP unlikely given her excellent response. Bone marrow malignancy is suspected given her progressive thrombocytopenia. Bone marrow biopsy planned for tomorrow, will plan to start glucocorticoid therapy following bone marrow biopsy procedure. May transfuse platelets for <10,000 unless s/s bleeding noted. Currently denies recent epistaxis, hematuria or hematochezia. Ultrasound of abdomen has been ordered to assess for chronic liver disease/ cirrhosis or congestive splenomegaly. Hepatitis workup negative. Anemia appears to be iron deficiency related with iron 26, 9% saturation. Hgb has improved to 9.2. She has received Injectafer, continues to take oral iron which she is tolerating well. Oncology: Subj Interval history: Resting in bed, alert and oriented, no s/s distress. Denies pain. She is anxiously awaiting bone marrow biopsy which is planned for tomorrow, we discussed plan for assessment of bone marrow malignancy, she understands and is agreeable to plan. Reports progressive weakness since her following admission, no focal weakness. She denies recent weight loss or decreased appetite. - Constitutional Vitals: Vital Signs Temp Pulse Resp BP Pulse Ox 06/27/17 14:32 98.5 F 91 18 140/79 97 06/27/17 11:27 98.4 F 91 20 132/81 97 06/27/17 07:51 98.0 F 83 20 161/82 97 06/27/17 04:27 98 F 80 21 155/74 98 06/27/17 00:28 98.3 F 84 20 109/91 97 06/26/17 19:39 98.3 F 93 19 113/72 98 Intake and Output 06/26/17 06/27/17 06/27/17 23:59 07:59 15:59 Intake Total 360 / 360 Balance 360 / 360 Intake: Oral 360 / 360 Other: Meal Breakfast Percent of Meal Consumed 100% # Urine Diapers 2 2 1 General appearance: cooperative, thin, no febrile, no no acute distress - Head Head exam: Present: atraumatic, normal inspection - Eye Eye exam: Present: PERRL - ENT ENT exam: Present: normal exam - Neck Neck exam: Absent: lymphadenopathy - Respiratory Respiratory exam: Present: CTAB - Cardiovascular Cardiovascular exam: Present: RRR - GI/Abdominal GI/Abdominal exam: Present: normal bowel sounds, soft. Absent: tenderness - Extremities Exam Extremities exam: Absent: pedal edema, tenderness - Neurological Exam Neurological exam: Present: alert, oriented X3, strengths equal and symetr throughout Oncology: Obj Data - Labs CBC & Chem 7: 06/27/17 10:05 06/27/17 04:13 Labs: Laboratory Results - last 24 hr 06/26/17 06/27/17 06/27/17 22:22 04:13 04:13 WBC 5.6 5.1 RBC 3.36 L 3.34 L Hgb 9.2 L 9.2 L Hct 30.4 L 29.0 L MCV 90.5 86.8 MCH 27.4 L 27.5 L MCHC 30.3 L 31.7 RDW 15.4 H 15.2 H Plt Count 33 L 26 L* MPV TNP Immature Plt Fraction 11.3 H PT 11.1 INR 1.0 APTT 30.9 Sodium Potassium Chloride Carbon Dioxide BUN Creatinine Est GFR ( Amer) Est GFR (Non-Af Amer) BUN/Creatinine Ratio Glucose Calculated Osmolality Calcium Total Bilirubin AST ALT Alkaline Phosphatase Serum Total Protein Albumin Globulin Albumin/Globulin Ratio 06/27/17 06/27/17 06/27/17 04:13 06:53 10:05 WBC 4.5 4.3 RBC 3.46 L 3.34 L Hgb 9.5 L 9.2 L Hct 29.6 L 29.2 L MCV 85.5 87.4 MCH 27.5 L 27.5 L MCHC 32.1 31.5 L RDW 15.2 H 15.1 H Plt Count 27 L* 30 L* MPV TNP TNP Immature Plt Fraction 10.4 H 8.1 H PT INR APTT Sodium 139 Potassium 3.7 Chloride 112 H Carbon Dioxide 20 BUN 22 H Creatinine 1.15 H Est GFR ( Amer) 55 L Est GFR (Non-Af Amer) 45 L BUN/Creatinine Ratio 19 Glucose 84 Calculated Osmolality 291 Calcium 8.3 L Total Bilirubin 0.3 AST 9 ALT 9 Alkaline Phosphatase 52 Serum Total Protein 5.6 L Albumin 2.5 L Globulin 3.1 Albumin/Globulin Ratio 0.8 L - ABG Interpretation ABG results: PT/INR, D-dimer PT 11.1 Seconds (9.4-12.1) 06/27/17 04:13 D-Dimer 1706 ng/mLFEU (0-500) H 06/26/17 14:01 Consult Discharge Plan - Plan Referrals: Teo Darling MD [Primary Care Provider] - 07/07/17 9:00 am <Uriel Colin - Last Filed: 06/28/17 10:02> Date of Encounter: 06/28/17 - Constitutional Vitals: Vital Signs Temp Pulse Resp BP Pulse Ox 06/28/17 09:15 87 168/104 96 06/28/17 07:57 97.7 F 94 18 161/91 97 06/28/17 05:02 98.4 F 83 17 151/93 96 06/28/17 00:00 98.5 F 80 17 163/96 97 06/27/17 20:45 97.7 F 76 14 155/79 94 06/27/17 15:47 98.5 F 90 20 149/83 97 06/27/17 14:32 98.5 F 91 18 140/79 97 06/27/17 11:27 98.4 F 91 20 132/81 97 Intake and Output 06/28/17 06/28/17 06/28/17 00:59 08:59 16:59 Intake Total 0 / 0 Balance 0 / 0 Intake: Oral 0 / 0 Other: # Urine Diapers 1 2 # Bowel Movement Diapers 1 1 Weight 50 kg Blood Glucose* 88 Oncology: Obj Data - Labs CBC & Chem 7: 06/28/17 04:15 06/28/17 04:15 Labs: Laboratory Results - last 24 hr 06/27/17 06/28/17 06/28/17 10:05 04:15 04:15 WBC 4.3 4.8 RBC 3.34 L 3.45 L Hgb 9.2 L 9.5 L Hct 29.2 L 29.4 L MCV 87.4 85.2 MCH 27.5 L 27.5 L MCHC 31.5 L 32.3 RDW 15.1 H 15.2 H Plt Count 30 L* 51 L D MPV TNP TNP Immature Gran % 0.4 Seg Neutrophils % 41.0 Lymphocytes % 43.6 Monocytes % 9.8 Eosinophils % 4.8 Basophils % 0.4 Neutrophils # 2.0 Lymphocytes # 2.1 Monocytes # 0.5 Eosinophils # 0.2 Basophils # 0.0 Immature Plt Fraction 8.1 H 8.2 H Sodium 141 Potassium 3.8 Chloride 112 H Carbon Dioxide 22 L BUN 21 Creatinine 1.23 H Est GFR ( Amer) 51 L Est GFR (Non-Af Amer) 42 L BUN/Creatinine Ratio 17 Glucose 85 Calculated Osmolality 294 Calcium 8.1 L - Impressions Impressions Abdomen Ultrasound 06/27/17 19:30 IMPRESSION: Mild hepatic steatosis. Normal size spleen. D/ / Rocco Spring MD / Rocco Spring MD Interpreting Provider: Rocco Spring MD - ABG Interpretation ABG results: PT/INR, D-dimer PT 11.1 Seconds (9.4-12.1) 06/27/17 04:13 D-Dimer 1706 ng/mLFEU (0-500) H 06/26/17 14:01 - Attending Attestation I examined this patient and my medical decision-making was reviewed with the Advanced Practice Nurse. I agree with the documented findings, disposition and treatment plan as described except to the extent set forth below. She had a nice response to platelets yesterday. Although ITP is still on the differential , this is less likely given her robust response. I have ordered an ultrasound of the abdomen to look at her liver and spleen to look for evidence of liver disease or splenomegaly which could point to hypersplenism/splenic sequestration. She will proceed with bone marrow aspirate and biopsy as originally scheduled. The patient agrees.
[2017-06-27] MEDS: clonazePAM 1 MG TABLET PO SCH (20:38)
[2017-06-28 05:03] LABS: Hemoglobin 9.5 g/dL (11.5-15.4); Red Cell Distribution Width 15.2 % (11.5-14.5)
[2017-06-28 05:04] LABS: Basophils % 0.4 %; Eosinophils # 0.2 K/mcL (0.0-0.6); Eosinophils % 4.8 %; Hematocrit 29.4 % (35.3-44.9); Immature Granulocytes % 0.4 % (0-4); Immature Platelets 8.2 % (1.1-6.1); Lymphocytes # 2.1 K/mcL (0.6-4.6); Lymphocytes % 43.6 %; Mean Corpuscular HGB Conc 32.3 g/dL (31.6-35.5); Mean Corpuscular Hemoglobin 27.5 pg (28.0-33.3); Mean Corpuscular Volume 85.2 fL (83.0-100.0); Monocytes # 0.5 K/mcL (0.0-1.3); Monocytes % 9.8 %; Red Blood Count 3.45 M/mcL (3.82-4.97)
[2017-06-28 05:26] LABS: Calcium 8.1 mg/dL (8.6-10.3); Potassium 3.8 mEq/L (3.5-5.1)
[2017-06-28 05:37] LABS: Platelet Count 51 K/mcL (140-400)
--- NOTE | 2017-06-28 08:06 | Internal Med Progress Note ---
<Russell Samuels - Last Filed: 06/28/17 09:11> Date of Encounter: 06/28/17 Time of Encounter: 08:03 - Assessment and plan (1) Thrombocytopenia Current Visit: Yes Status: Chronic Assessment and plan: Progressive decline since 2014 Responded well to platelet infusion with Plt now 51 - Unlikely ITP at this point and concern is for underlying bone malignancy Coags within normal limits Onc following - Recommend glucocorticoid therapy after biopsy today Plan: - IR bone biopsy today - Transfuse Plt if less than 10,000 - Close monitoring with telemetry and O2 pulse ox - Likely discharge later today and will followup as outpatient (2) Petechial hemorrhage Current Visit: Yes Status: Acute Assessment and plan: Etiology likely due to thrombocytopenia. See plan above (3) Anemia Current Visit: Yes Status: Chronic Assessment and plan: Hgb up to 9.5 after one dose of Injectafer Continue oral supplements Will continue to follow Qualifiers: Anemia type: iron deficiency Iron deficiency anemia type: unspecified iron deficiency Qualified Code(s): D50.9 - Iron deficiency anemia, unspecified (4) CKD (chronic kidney disease) Current Visit: Yes Status: Chronic Assessment and plan: Appears to be better than baseline and improving Cr 1.23 Avoid Nephrotoxics Recheck tomorrow Qualifiers: Chronic kidney disease stage: stage 3 (moderate) Qualified Code(s): N18.3 - Chronic kidney disease, stage 3 (moderate) - Subjective Interval history: Patient is resting comfortable in bed this morning. No concerns per nursing overnight. Denies any new complaints. No recurrent epistaxis, hematuria, hemoptysis, melena or hematochezia. She is requesting food this morning while she is awaiting bone biopsy this morning - Constitutional Vitals: Temp Pulse Resp BP Pulse Ox 97.7 F 94 18 161/91 97 06/28/17 07:57 06/28/17 07:57 06/28/17 07:57 06/28/17 07:57 06/28/17 07:57 General appearance: Present: cooperative, mild distress, A&O X 3, answers questions appropriately - Head Head exam: Present: atraumatic, normocephalic - Eye Eye exam: Present: EOMI, normal appearance, conjuntiva pink, sclera anicteric - ENT ENT exam: Present: mucous membranes moist - Neck Neck exam general surgery: Present: supple, trachea midline - Respiratory Respiratory exam: Present: CTAB. Absent: respiratory distress - Cardiovascular Cardiovascular exam: Present: RRR, +S1, +S2 - GI/Abdominal GI/Abdominal exam: Present: normal bowel sounds, soft. Absent: tenderness - Extremities Exam Extremities exam: Present: warm. Absent: cyanotic, tenderness - Neurological Exam Neurological exam: Present: alert, oriented X3, no focal deficits - Psychiatric Psychiatric exam: Present: normal affect, normal mood - Skin Skin exam: Present: petechiae (present about bilateral LE, abdomen, chest and back) Internal Medicine: Result - Labs CBC & Chem 7: 06/28/17 04:15 06/28/17 04:15 Labs: Short CBC 06/27/17 06/28/17 Range/Units 10:05 04:15 WBC 4.3 4.8 (4.3-11.1) K/mcL Hgb 9.2 L 9.5 L (11.5-15.4) g/dL Hct 29.2 L 29.4 L (35.3-44.9) % Plt Count 30 L* 51 L D (140-400) K/mcL Neutrophils # 2.0 (1.6-8.9) K/mcL BMP 06/28/17 04:15 Sodium 141 Potassium 3.8 Chloride 112 H Carbon Dioxide 22 L BUN 21 Creatinine 1.23 H Glucose 85 Calcium 8.1 L - ABG Interpretation ABG results: PT/INR, D-dimer PT 11.1 Seconds (9.4-12.1) 06/27/17 04:13 D-Dimer 1706 ng/mLFEU (0-500) H 06/26/17 14:01 - Impressions Impressions Abdomen Ultrasound 06/27/17 19:30 IMPRESSION: Mild hepatic steatosis. Normal size spleen. D/ / Rocco Spring MD / Rocco Spring MD Interpreting Provider: Rocco Spring MD - VTE Reasons for not Prescribing Prophylaxis: Medical contraindication Consult Discharge Plan - Plan Instructions: Epistaxis (DC), Iron Deficiency Anemia (DC), Thrombocytopenia (DC ) Referrals: Teo Darling MD [Primary Care Provider] - (PATIENT IS GOING TO [facility] NO PCP APPOINTMENT NEEDED) James Cisneros MD [Partnered Physician] - 07/13/17 3:00 pm <Mahad Sung - Last Filed: 06/28/17 17:56> Date of Encounter: 06/28/17 - Constitutional Vitals: Temp Pulse Resp BP Pulse Ox 98.2 F 82 15 107/59 96 06/28/17 16:17 06/28/17 17:22 06/28/17 17:22 06/28/17 17:22 06/28/17 17:22 Internal Medicine: Result - Labs CBC & Chem 7: 06/28/17 04:15 06/28/17 04:15 Labs: Short CBC 06/28/17 Range/Units 04:15 WBC 4.8 (4.3-11.1) K/mcL Hgb 9.5 L (11.5-15.4) g/dL Hct 29.4 L (35.3-44.9) % Plt Count 51 L D (140-400) K/mcL Neutrophils # 2.0 (1.6-8.9) K/mcL BMP 06/28/17 04:15 Sodium 141 Potassium 3.8 Chloride 112 H Carbon Dioxide 22 L BUN 21 Creatinine 1.23 H Glucose 85 Calcium 8.1 L - ABG Interpretation ABG results: PT/INR, D-dimer PT 11.1 Seconds (9.4-12.1) 06/27/17 04:13 D-Dimer 1706 ng/mLFEU (0-500) H 06/26/17 14:01 - Impressions Impressions Abdomen Ultrasound 06/27/17 19:30 IMPRESSION: Mild hepatic steatosis. Normal size spleen. D/ / Rocco Spring MD / Rocco Spring MD Interpreting Provider: Rocco Spring MD Bone Marrow Biopsy w/ CT 06/28/17 00:00 IMPRESSION: 1. CT guided bone marrow aspiration and core needle bone biopsy as discussed above. D/ / Anthony Shaw MD / Anthony Shaw MD Interpreting Provider: Anthony Shaw MD - Attending Attestation I conducted a face to face diagnostic evaluation of this patient and my medical decision-making was reviewed with the Resident Physician, Dr Russell Samuels. I agree with the documented findings, disposition and treatment plan as described except to the extent set forth below: Patient had no further episodes of bleeding. She is scheduled for bone marrow biopsy today. On exam she is in no acute distress. Heart is regular, lungs are clear. Hold aspirin on discharge due to thrombocytopenia. Mahad Sung MD
[2017-06-28] MEDS ORDERED: *HR* FentaNYL (PF) 100 MCG/2 ML VIAL IVP ONE (10:44)
[2017-06-28] MEDS ORDERED: *HR* Midazolam HCl 2 MG/2 ML VIAL IVP ONE (10:44)
--- NOTE | 2017-06-28 11:03 | Physician Discharge Referral ---
ExtendedCare Referral Info Transfer To: [facility] Institutional Level of Care: Skilled - Diagnosis (1) Thrombocytopenia Priority: Primary Status: Acute (2) Petechial hemorrhage Priority: Primary Status: Chronic (3) Anemia Priority: Secondary Status: Chronic (4) CKD (chronic kidney disease) Priority: Secondary Status: Chronic Prognosis: Good - Transfer Medications Home Medications: Alendronate Sodium 70 mg PO QWEEK 05/10/16 [History] Aspirin 81 mg PO DAILY 05/10/16 [History] Omeprazole [PriLOSEC] 20 mg PO DAILY 05/10/16 [History] Sertraline [Zoloft] 150 mg PO DAILY 05/10/16 [History] clonazePAM [Clonazepam] 1 mg PO HS 05/10/16 [History] Ascorbic Acid [Vitamin C] 250 mg PO DAILY 04/14/17 [History] Fexofenadine HCl [Allergy Relief] 180 mg PO DAILY 04/14/17 [History] Ferrous Sulfate [Iron] 325 mg PO DAILY #0 06/13/17 [History] Allergies/Adverse Reactions: 3 Allergy/AdvReac Type Severity Reaction Status Date / Time phenobarbital Allergy Hives Verified 06/20/17 17:44 - Respiratory Orders Smoking Cessation: Smoking cessation has been advised. For more information, call the [employer] Tobacco Quit Line at 9-541-RZLGNOW. - Advance Directives Code Status: Full Code - Mobility Orders Ambulate (fall risk) - Rehabiliation Orders Rehab Orders: Evaluation for Physical Therapy, Evaluation for Occupational Therapy - Diet Orders Regular CERTIFICATION: I certify that the transfer of the above named patient to an Extended Care Facility is necessary for the continuing treatment of the diagnosis listed. The above information is true and accurate reflection of patient's current condition. Confidential - Redisclosure prohibited without a patient's written consent.
--- NOTE | 2017-06-28 11:05 | Discharge Summary ---
<Russell Samuels - Last Filed: 06/28/17 11:43> Date of Encounter: 06/28/17 Time of Encounter: 11:03 - Discharge Diagnosis (1) Thrombocytopenia Priority: Primary Status: Acute Comments: Bone biopsy performed today Results pending Will followup as outpatient After transfusion of platelets, plt now 51 and stable (2) Petechial hemorrhage Priority: Primary Status: Chronic (3) Anemia Priority: Secondary Status: Chronic Comments: Iron deficiency Continue oral supplements Hgb stable 9.5 Qualifiers: Anemia type: iron deficiency Iron deficiency anemia type: unspecified iron deficiency Qualified Code(s): D50.9 - Iron deficiency anemia, unspecified (4) CKD (chronic kidney disease) Priority: Secondary Status: Chronic Comments: Cr 1.23 today Stable at this time Qualifiers: Chronic kidney disease stage: stage 3 (moderate) Qualified Code(s): N18.3 - Chronic kidney disease, stage 3 (moderate) - Discharge Medications Home Medications: Alendronate Sodium 70 mg PO QWEEK 05/10/16 [History] Aspirin 81 mg PO DAILY 05/10/16 [History] Omeprazole [PriLOSEC] 20 mg PO DAILY 05/10/16 [History] Sertraline [Zoloft] 150 mg PO DAILY 05/10/16 [History] clonazePAM [Clonazepam] 1 mg PO HS 05/10/16 [History] Ascorbic Acid [Vitamin C] 250 mg PO DAILY 04/14/17 [History] Fexofenadine HCl [Allergy Relief] 180 mg PO DAILY 04/14/17 [History] Ferrous Sulfate [Iron] 325 mg PO DAILY #0 06/13/17 [History] Allergies/Adverse Reactions: 3 Allergy/AdvReac Type Severity Reaction Status Date / Time phenobarbital Allergy Hives Verified 06/20/17 17:44 Procedures/tests Complete & Pending: Procedures Performed prior 72 hours Category Date Time Status US abdomen limited [US] Routine Exams 06/27/17 19:30 Completed Date of admission: 06/26/17 18:56 Primary care physician: Teo Darling MD Consults: 06/27/17 08:58 Consult to Interventional Radiology [CONS] Routine Consulting Provider: Radiology Interventional Cols Reason for Consult: bone biopsy, thrombocytopenia with pectechial hemorrhages Call Completed: Yes Discharging clinician: Mahad Sung Anticipated date of discharge: 06/28/17 - Patient Status Disposition: Transfer SNF Condition: Good Overall status at discharge: patient is back to baseline - Discharge Instructions Instructions: Epistaxis (DC), Iron Deficiency Anemia (DC), Thrombocytopenia (DC ) Follow Up With: Teo Darling MD [Primary Care Provider] - (PATIENT IS GOING TO [facility] NO PCP APPOINTMENT NEEDED) James Cisneros MD [Partnered Physician] - 07/13/17 3:00 pm - Diet and Activity Activity: as per physical therapy Diet: advance to your usual diet Interval History: Ms. Sullivan is a very pleasant 82 year old female with past medical history of CAD, CVA and CKD who presented to the [facility] ED on 06/26/17 from [facility] with a chief complaint of epistaxis for approximately 30min. Patient denied any nasal trauma or prior history of bleeding or coagulopathy. At the time of admission, she denied any other symptoms such as CP, SOB, fevers, SOB, weight loss or gain, night sweats, appetite changes, hemoptysis, hematochezia or melena. On arrival, she was found to have Plt 10 and elevated Cr 1.30. Vitals signs were stable. Due to unknown etiology of thrombocytopenia, she was admitted to [facility] for further workup and management. Patient underwent platelet transfusion and responded well with increase to Plt 51. Oncology was consulted and recommended bone biopsy and Abdominal US with outpatient followup. Ultrasound found no HSM but noted to have mild hepatic steatosis. Hemoglobin increased slightly to 9.5 after inectafer and oral iron supplements. Ms. Sullivan was discharged from [facility] on 06/28/17 in stable condition to [facility]. Followup in place. Hospital course: Ms. Sullivan is a 82 year old female - Time Spent with Patient Total time spent providing and/or coordinating discharge services: - Constitutional Vitals: Temp Pulse Resp BP Pulse Ox 98.5 F 103 15 118/64 95 06/28/17 10:54 06/28/17 10:54 06/28/17 10:54 06/28/17 10:54 06/28/17 10:54 General appearance: Present: cooperative, mild distress, A&O X 3, answers questions appropriately - Head Head exam: Present: atraumatic, normocephalic - Eye Eye exam: Present: EOMI, normal appearance - ENT ENT exam: Present: mucous membranes moist - Neck Neck exam general surgery: Present: supple, trachea midline - Respiratory Respiratory exam: Present: CTAB. Absent: respiratory distress - Cardiovascular Cardiovascular exam: Present: RRR, +S1, +S2 - GI/Abdominal GI/Abdominal exam: Present: normal bowel sounds, soft. Absent: tenderness - Extremities Exam Extremities exam: Present: warm. Absent: calf tenderness, pedal edema, tenderness - Neurological Exam Neurological exam: Present: alert, oriented X3, no focal deficits - Psychiatric Psychiatric exam: Present: normal affect, normal mood - Skin Skin exam: Present: petechiae (throughout bilateral LE, abdomen, chest and back) - VTE Reasons for not Prescribing Prophylaxis: Medical contraindication <Mahad Sung - Last Filed: 06/28/17 18:09> Date of Encounter: 06/28/17 Procedures/tests Complete & Pending: Procedures Performed prior 72 hours Category Date Time Status CT guided biopsy [CT] Routine Cat Scan 06/28/[address] biopsy bone marrow [CT] Routine Exams 06/28/17 Completed US abdomen limited [US] Routine Exams 06/27/17 19:30 Completed Date of admission: 06/26/17 18:56 Primary care physician: Teo Darling MD Consults: 06/27/17 08:58 Consult to Interventional Radiology [CONS] Routine Consulting Provider: Radiology Interventional Cols Reason for Consult: bone biopsy, thrombocytopenia with pectechial hemorrhages Call Completed: Yes Hospital course: Ms. Sullivan is a 82 year old female - Time Spent with Patient Total time spent providing and/or coordinating discharge services: - Constitutional Vitals: Temp Pulse Resp BP Pulse Ox 98.2 F 82 15 107/59 96 06/28/17 16:17 06/28/17 17:22 06/28/17 17:22 06/28/17 17:22 06/28/17 17:22 - Attending Attestation I conducted a face to face diagnostic evaluation of this patient and my medical decision-making was reviewed with the Resident Physician, Dr Russell Samuels. I agree with the documented findings, disposition and treatment plan as described except to the extent set forth below: Patient was admitted for epistaxis. She had profound thrombocytopenia. She received platelet transfusion. Her platelet count responded well. Today is 51. She will have bone marrow biopsy done this afternoon and will be discharged to subacute rehabilitation. Mahad Sung MD
[2017-06-28] MEDS ORDERED: 0.9 % Sodium Chloride 500 ML ONE (12:30)
[2017-06-28] MEDS ORDERED: *HR* FentaNYL (PF) 100 MCG/2 ML VIAL ONE (12:34)
--- NOTE | 2017-06-28 12:58 | IR Procedure Note ---
Date of procedure: 06/28/17 Consent Obtained: Verbal consent Timeout: Correct patient and procedure verified, Time out performed, Skin prep completed Local anesthetic: Lidocaine 1% Indications: Thrombocytopenia Procedure Performed: Bone marrow asp/biopsy Results/Findings: Sample to path Complications: None; Tolerated procedure well (monitor on floor)
[2017-06-28] MEDS: Loratadine 10 MG TABLET PO SCH (14:37)
[2017-06-28] MEDS: Ascorbic Acid 500 MG TABLET PO SCH (14:38)
--- NOTE | 2017-06-28 16:20 | Oncology Inp Progress Note ---
<Carla Rodriguez L - Last Filed: 06/28/17 21:26> Date of Encounter: 06/28/17 Time of Encounter: 14:30 (1) Thrombocytopenia Status: Acute Assessment and plan: Platelets continue to respond to platelet transfusion, currently increased to 51 ,000. Diagnosis of ITP unlikely given her excellent response to platelet transfusion. Bone marrow malignancy is suspected given her progressive thrombocytopenia. Bone marrow biopsy procedure performed this afternoon, awaiting results. She is planned to discharge following biopsy after a period of observation. She will return to the clinic within the next 1-2 weeks to consult with Dr. Duran and discuss biopsy results, she was given an appointment card today with this appointment. May transfuse platelets for <10,000 unless s/s bleeding noted. Currently denies recent epistaxis, hematuria or hematochezia. Ultrasound of abdomen revealed mild hepatic steatosis, otherwise normal. Hepatitis workup negative. Iron deficiency with serum iron 26, 9% saturation. Hgb has improved to 9.2. She has received Injectafer, continues to take oral iron which she is tolerating well. Oncology: Subj Interval history: Resting comfortably following bone marrow biospy, pain controlled at this time. Denies s/s of recent bleeding. Denies chest pain, SOB or abdominal pain. - Constitutional Vitals: Vital Signs Temp Pulse Resp BP Pulse Ox 06/28/17 16:17 98.2 F 92 15 115/62 96 06/28/17 15:07 98.4 F 92 16 120/67 97 06/28/17 14:53 90 06/28/17 14:30 93 16 125/78 95 06/28/17 14:20 89 18 147/87 96 06/28/17 14:00 91 17 137/75 95 06/28/17 13:45 90 18 140/85 95 06/28/17 12:56 96 13 174/96 97 06/28/17 11:20 100 06/28/17 10:54 98.5 F 103 15 118/64 95 06/28/17 09:15 87 168/104 96 06/28/17 07:57 97.7 F 94 18 161/91 97 06/28/17 05:02 98.4 F 83 17 151/93 96 06/28/17 00:00 98.5 F 80 17 163/96 97 06/27/17 20:45 97.7 F 76 14 155/79 94 Intake and Output 06/28/17 06/28/17 06/28/17 07:59 15:59 23:59 Intake Total 0 / 0 Balance 0 / 0 Intake: Oral 0 / 0 Other: # Urine Diapers 2 # Bowel Movement Diapers 1 Weight 50 kg Blood Glucose* 88 Patient Weight 06/28/17 23:59 Weight 50 kg General appearance: cooperative, no acute distress - Head Head exam: Present: normal inspection - Eye Eye exam: Present: PERRL - ENT ENT exam: Present: mucous membranes moist - Neck Neck exam: Present: full ROM. Absent: lymphadenopathy - Respiratory Respiratory exam: Present: CTAB. Absent: respiratory distress - Cardiovascular Cardiovascular exam: Present: RRR - GI/Abdominal GI/Abdominal exam: Present: normal bowel sounds, soft. Absent: tenderness - Extremities Exam Extremities exam: Absent: calf tenderness, pedal edema - Neurological Exam Neurological exam: Present: alert, oriented X3, strengths equal and symetr throughout - Skin Skin exam: Present: normal color Oncology: Obj Data - Labs CBC & Chem 7: 06/28/17 04:15 06/28/17 04:15 Labs: Laboratory Results - last 24 hr 06/28/17 06/28/17 04:15 04:15 WBC 4.8 RBC 3.45 L Hgb 9.5 L Hct 29.4 L MCV 85.2 MCH 27.5 L MCHC 32.3 RDW 15.2 H Plt Count 51 L D MPV TNP Immature Gran % 0.4 Seg Neutrophils % 41.0 Lymphocytes % 43.6 Monocytes % 9.8 Eosinophils % 4.8 Basophils % 0.4 Neutrophils # 2.0 Lymphocytes # 2.1 Monocytes # 0.5 Eosinophils # 0.2 Basophils # 0.0 Immature Plt Fraction 8.2 H Sodium 141 Potassium 3.8 Chloride 112 H Carbon Dioxide 22 L BUN 21 Creatinine 1.23 H Est GFR ( Amer) 51 L Est GFR (Non-Af Amer) 42 L BUN/Creatinine Ratio 17 Glucose 85 Calculated Osmolality 294 Calcium 8.1 L - Impressions Impressions Abdomen Ultrasound 06/27/17 19:30 IMPRESSION: Mild hepatic steatosis. Normal size spleen. D/ / Rocco Spring MD / Rocco Spring MD Interpreting Provider: Rocco Spring MD Bone Marrow Biopsy w/ CT 06/28/17 00:00 IMPRESSION: 1. CT guided bone marrow aspiration and core needle bone biopsy as discussed above. D/ / Anthony Shaw MD / Anthony Shaw MD Interpreting Provider: Anthony Shaw MD - ABG Interpretation ABG results: PT/INR, D-dimer PT 11.1 Seconds (9.4-12.1) 06/27/17 04:13 D-Dimer 1706 ng/mLFEU (0-500) H 06/26/17 14:01 Consult Discharge Plan - Plan Instructions: Epistaxis (DC), Iron Deficiency Anemia (DC), Thrombocytopenia (DC ) Referrals: Teo Darling MD [Primary Care Provider] - (PATIENT IS GOING TO [facility] NO PCP APPOINTMENT NEEDED) James Cisneros MD [Partnered Physician] - 07/13/17 3:00 pm <Uriel Colin - Last Filed: 06/30/17 07:24> Date of Encounter: 06/30/17 Oncology: Obj Data - Labs CBC & Chem 7: 06/28/17 04:15 06/28/17 04:15 Labs: Laboratory Results - last 24 hr 06/28/17 05:41 POC Glucose 88 - ABG Interpretation ABG results: PT/INR, D-dimer PT 11.1 Seconds (9.4-12.1) 06/27/17 04:13 D-Dimer 1706 ng/mLFEU (0-500) H 06/26/17 14:01 - Attending Attestation I examined this patient and my medical decision-making was reviewed with the Advanced Practice Nurse. I agree with the documented findings, disposition and treatment plan as described except to the extent set forth below. Ms. Sullivan is doing well. No acute issues. No bleeding. Platelet count has increased to 51,000 today. Clinically not c/w ITP, but cannot be excluded. US liver essentially normal. Proceed with BM biopsy then followup with Dr. Duran. Breanne d/ c home after procedure.
[2017-06-28 17:23] VITALS: BP 107/59
== END 2017-06-28 19:04 | DRG 813 ==
LOC: EMEROO 10:45 → 3BNU 10:45 → 2NNU 16:09 → SUATTDRO 18:56
PROVIDERS: ADMIT Registered Nurse; ATTEND Internal Medicine

== ENCOUNTER 2018-08-15 11:26 | Observation (INO) ==
[2018-08-15] MEDS ORDERED: 0.9 % Sodium Chloride 500 ML IVC ONE (11:35)
--- NOTE | 2018-08-15 11:56 | Emergency Department Note ---
Disposition Clinical Impression: Urinary tract infection Qualifiers: Urinary tract infection type: site unspecified Hematuria presence: without hematuria Qualified Code(s): N39.0 - Urinary tract infection, site not specified Sepsis Qualifiers: Sepsis type: sepsis due to unspecified organism Qualified Code(s): A41.9 - Sepsis, unspecified organism Disposition: Admitted As Inpatient Condition: Fair Referrals: NONE,PCP [Primary Care Provider] - Forms: ED Satisfaction Letter Time of Disposition: 15:13 General Adult HPI - General Chief complaint: ED Fever Stated complaint: fever/NV/headache Time Seen by Provider: 08/15/18 11:32 Source: patient, EMS Limitations: no limitations Nursing Notes Reviewed: Yes Vital Signs Reviewed: Yes - History of Present Illness HPI Narrative: 83 yo female recently discharged from the hospital for sepsis secondary to a UTI presents to the emergency department via EMS for similar complaints to her previous admission. She states that she had one episode of vomiting and d iarrhea last night and has been shaking again. The last time she was shaking like this she was febrile and septic. She denies any abdominal pain or urinary complaints. She does not have any chest pain or shortness of breath. She does still feel nauseous. She denies any blood in the vomit or stool. She has not taken anything for her fever. Pain Scale: 0 - Related Data Home Medications Medication Instructions Recorded Confirmed clonazePAM [Clonazepam] 1 mg PO HS 08/09/18 08/09/18 Previous Rx's Medication Instructions Recorded Eltrombopag Olamine [Promacta] 50 mg PO DAILY #30 tablet 08/07/18 Cefdinir [Omnicef] 300 mg PO BID 9 Days #18 capsule 08/12/18 Sennosides/Docusate Sodium [Senna 1 each PO BID PRN #60 tablet 08/12/18 Plus] Allergies Allergy/AdvReac Type Severity Reaction Status Date / Time latex Allergy Rash Verified 08/15/18 11:30 phenobarbital Allergy Hives Verified 08/15/18 11:30 All systems ED: reviewed and negative except as stated. Review of Systems: As Per HPI Constitutional: Reports: fever, chills, weakness Cardiovascular: Denies: chest pain, palpitations, dyspnea on exertion Respiratory: Denies: cough, dyspnea, wheezes Gastrointestinal: Reports: nausea, vomiting, diarrhea. Denies: abdominal pain, constipation, hematemesis, melena, hematochezia Genitourinary: Denies: dysuria, hematuria Musculoskeletal: Denies: back pain, neck pain Integumentary: Denies: rash Neurological: Reports: weakness. Denies: headache Endocrine: Reports: fatigue Past Medical History - Past Medical History Attestation: Yes The following information was validated with the patient. Source: patient Medical history: Reports: coronary artery disease, CVA, renal disease, other Surgical history: Reports: , cholecystectomy, other Psychiatric history: Reports: anxiety, depression - Social History Smoking Status: Never smoker Smokeless Tobacco Status: No Alcohol use: Reports: none Drug use: Reports: none Physical Exam Patient has tremors and feels warm and diaphoretic on exam. - General Limitations: no limitations General appearance: alert - Head Head exam: atraumatic, normocephalic - Eye Eye exam: Present: normal appearance, PERRL, EOMI - ENT ENT exam: normal exam, normal oropharynx - Neck Neck exam: Present: normal inspection, full ROM - Chest Chest inspection: Present: normal inspection, symmetric chest wall rise. Absent: tenderness, rash - Respiratory Respiratory exam: Present: normal lung sounds bilaterally. Absent: wheezes - Cardiovascular Cardiovascular exam: Present: tachycardia, irregular rhythm - Abdominal Exam Abdominal exam: Present: soft, Non-Tender. Absent: distention, guarding, rebound, rigidity - Extremities Exam Extremities exam: Present: normal inspection. Absent: tenderness, pedal edema - Neurological Exam Neurological exam: Present: alert, oriented X3 - Psychiatric Psychiatric exam: Present: normal affect, normal mood - Skin Skin exam: Present: warm, dry, intact Course Vital Signs Temperature 99.7 F H 08/15/18 11:30 Pulse Rate 102 08/15/18 11:30 Respiratory Rate 20 08/15/18 11:30 Blood Pressure 116/61 08/15/18 11:30 O2 Sat by Pulse Oximetry 97 08/15/18 11:30 Temperature 99.7 F H 08/15/18 11:30 Pulse Rate 90 08/15/18 14:30 Respiratory Rate 18 08/15/18 14:30 Blood Pressure 96/56 08/15/18 14:30 O2 Sat by Pulse Oximetry 100 08/15/18 14:30 Oxygen Delivery Oxygen Delivery Room Air Medical Decision Making - [facility] Narrative Medical decision making narrative: Patient presents to the emergency signs and symptoms concerning for sepsis secondary to an unknown source. She was febrile on the squad with a temperature of 101 and tachycardic here. The patient denies any urinary or pulmonary symptoms at this time. We will do a full sepsis workup on her to determine the cause of her fever and symptoms. 1400patient's lab work has returned unremarkable. EKG does not show any changes from her previous. The patient has not had a urine sample sent at this time, awaiting urinary straight catheter. 1445 - patient's urine shows large amounts of blood and leukocyte esterase. The patient will be admitted for continued IV antibiotics and control of her sepsis. The hospitalist has been paged and has accepted her for admission. - Medical Records Medical records reviewed: Yes I reviewed the patient's medical records. - Lab Data Lab results reviewed: Yes I reviewed the patient's lab results. Result diagrams: 08/15/18 11:55 08/15/18 11:55 Lab Results 08/15/18 08/15/18 08/15/18 Range/Units 11:55 11:55 11:55 WBC 5.7 (4.3-11.1) K/mcL RBC 3.32 L (3.82-4.97) M/mcL Hgb 9.8 L (11.5-15.4) g/dL Hct 30.4 L (35.3-44.9) % MCV 91.6 (83.0-100.0) fL MCH 29.5 (28.0-33.3) pg MCHC 32.2 (31.6-35.5) g/dL RDW 13.1 (11.5-14.5) % Plt Count 119 L D (140-400) K/mcL MPV 11.0 (9.4-12.4) fL Immature Gran % 1.6 (0-4) % Seg Neutrophils % 62.7 % Lymphocytes % 22.3 % Monocytes % 10.1 % Eosinophils % 2.8 % Basophils % 0.5 % Neutrophils # 3.6 (1.6-8.9) K/mcL Lymphocytes # 1.3 (0.6-4.6) K/mcL Monocytes # 0.6 (0.0-1.3) K/mcL Eosinophils # 0.2 (0.0-0.6) K/mcL Basophils # 0.0 (0.0-0.2) K/mcL PT 12.2 H (9.4-12.1) Seconds INR 1.1 APTT 33.0 (26.0-36.0) Seconds Sodium 139 (136-145) mEq/L Potassium 4.1 (3.5-5.1) mEq/L Chloride 115 H (98-107) mEq/L Carbon Dioxide 16 L (23-29) mEq/L BUN 48 H (8-23) mg/dL Creatinine 2.91 H (0.60-1.20) mg/dL Est GFR ( Amer) 19 L (> 60) Est GFR (Non-Af Amer) 16 L (> 60) BUN/Creatinine Ratio 16 (6-26) Glucose 91 (70-105) mg/dL Calculated Osmolality 300 (280-300) Lactic Acid (0.5-2.2) mmol/L Calcium 8.5 L (8.6-10.3) mg/dL Phosphorus 2.2 L (2.7-4.5) mg/dL Magnesium 1.5 L (1.6-2.6) mg/dL Total Bilirubin 0.5 (0.3-1.0) mg/dL Direct Bilirubin 0.1 (0.0-0.2) mg/dL Indirect Bilirubin 0.4 (0.0-1.2) mg/dL AST 11 L (13-39) Units/L ALT 10 (7-52) Units/L Alkaline Phosphatase 46 (34-104) Units/L Troponin I < 0.03 (< 0.04) ng/mL Serum Total Protein 5.1 L (6.4-8.9) g/dL Albumin 2.8 L (3.5-5.7) g/dL Globulin 2.3 L (2.4-3.5) g/dL Albumin/Globulin Ratio 1.2 (1.1-2.2) Urine Color (Yellow) Urine Clarity (Clear) Urine pH (5.0-8.0) pH Units Ur Specific [place] (1.010-1.025) Urine Protein (Neg-Trace) mg/dL Urine Glucose (UA) (Normal) mg/dL Urine Ketones (Negative) mg/dL Urine Blood (Negative) Urine Nitrite (Negative) Urine Bilirubin (Negative) Urine Urobilinogen (Normal) mg/dL Ur Leukocyte Esterase (Negative) Urine Microscopic RBC (0-3) per hpf Urine Microscopic WBC (0-3) per hpf Ur Squamous Epith Cells (None-Few) per lpf Urine Bacteria (None-Few) per hpf Hyaline Casts (None-Few) per lpf Urine Yeast Ur Culture Indicated? (NO) 08/15/18 08/15/18 Range/Units 11:55 14:13 WBC (4.3-11.1) K/mcL RBC (3.82-4.97) M/mcL Hgb (11.5-15.4) g/dL Hct (35.3-44.9) % MCV (83.0-100.0) fL MCH (28.0-33.3) pg MCHC (31.6-35.5) g/dL RDW (11.5-14.5) % Plt Count (140-400) K/mcL MPV (9.4-12.4) fL Immature Gran % (0-4) % Seg Neutrophils % % Lymphocytes % % Monocytes % % Eosinophils % % Basophils % % Neutrophils # (1.6-8.9) K/mcL Lymphocytes # (0.6-4.6) K/mcL Monocytes # (0.0-1.3) K/mcL Eosinophils # (0.0-0.6) K/mcL Basophils # (0.0-0.2) K/mcL PT (9.4-12.1) Seconds INR APTT (26.0-36.0) Seconds Sodium (136-145) mEq/L Potassium (3.5-5.1) mEq/L Chloride (98-107) mEq/L Carbon Dioxide (23-29) mEq/L BUN (8-23) mg/dL Creatinine (0.60-1.20) mg/dL Est GFR ( Amer) (> 60) Est GFR (Non-Af Amer) (> 60) BUN/Creatinine Ratio (6-26) Glucose (70-105) mg/dL Calculated Osmolality (280-300) Lactic Acid 0.8 (0.5-2.2) mmol/L Calcium (8.6-10.3) mg/dL Phosphorus (2.7-4.5) mg/dL Magnesium (1.6-2.6) mg/dL Total Bilirubin (0.3-1.0) mg/dL Direct Bilirubin (0.0-0.2) mg/dL Indirect Bilirubin (0.0-1.2) mg/dL AST (13-39) Units/L ALT (7-52) Units/L Alkaline Phosphatase (34-104) Units/L Troponin I (< 0.04) ng/mL Serum Total Protein (6.4-8.9) g/dL Albumin (3.5-5.7) g/dL Globulin (2.4-3.5) g/dL Albumin/Globulin Ratio (1.1-2.2) Urine Color Yellow (Yellow) Urine Clarity Turbid A (Clear) Urine pH 6.0 (5.0-8.0) pH Units Ur Specific [place] < 1.005 L (1.010-1.025) Urine Protein 100 H (Neg-Trace) mg/dL Urine Glucose (UA) Normal (Normal) mg/dL Urine Ketones Negative (Negative) mg/dL Urine Blood Moderate H (Negative) Urine Nitrite Negative (Negative) Urine Bilirubin Negative (Negative) Urine Urobilinogen Normal (Normal) mg/dL Ur Leukocyte Esterase Large H (Negative) Urine Microscopic RBC 30-50 H (0-3) per hpf Urine Microscopic WBC TNTC H (0-3) per hpf Ur Squamous Epith Cells Many H (None-Few) per lpf Urine Bacteria Present (None-Few) per hpf Hyaline Casts None Seen (None-Few) per lpf Urine Yeast Test Not Performed Ur Culture Indicated? NO. A (NO) - Radiology Data Radiology results reviewed: Yes I reviewed the patient's radiology results. - EKG Data EKG #1 EKG attestation: Yes I reviewed and interpreted this EKG. EKG results narrative: EKG obtained at 11:48 on 08/15/2018 Heart rate 96 bpm, QRS duration 81, QT 357, QTC 452 Atrial fibrillation with left ventricular hypertrophy. No evidence of ST segment elevation. Patient does have borderline T-wave abnormalities with artifact in some leads, likely secondary to patient's tremors. T-wave inversions in lead 3. No old EKG for comparison.
[2018-08-15 12:10] LABS: Basophils % 0.5 %; Eosinophils # 0.2 K/mcL (0.0-0.6); Eosinophils % 2.8 %; Hematocrit 30.4 % (35.3-44.9); Hemoglobin 9.8 g/dL (11.5-15.4); Immature Granulocytes % 1.6 % (0-4); Lymphocytes # 1.3 K/mcL (0.6-4.6); Lymphocytes % 22.3 %; Mean Corpuscular HGB Conc 32.2 g/dL (31.6-35.5); Mean Corpuscular Hemoglobin 29.5 pg (28.0-33.3); Mean Corpuscular Volume 91.6 fL (83.0-100.0); Monocytes # 0.6 K/mcL (0.0-1.3); Monocytes % 10.1 %; Neutrophils # 3.6 K/mcL (1.6-8.9); Platelet Count 119 K/mcL (140-400); Red Blood Count 3.32 M/mcL (3.82-4.97); Red Cell Distribution Width 13.1 % (11.5-14.5); Segmented Neutrophils % 62.7 %
[2018-08-15 12:34] LABS: Troponin I < 0.03 ng/mL (< 0.04)
[2018-08-15 12:35] LABS: Alanine Aminotransferase 10 Units/L (7-52); Albumin 2.8 g/dL (3.5-5.7); Albumin/Globulin Ratio 1.2 (1.1-2.2); Alkaline Phosphatase 46 Units/L (34-104); Aspartate Amino Transferase 11 Units/L (13-39); BUN/Creatinine Ratio 16 (6-26); Bilirubin,Direct 0.1 mg/dL (0.0-0.2); Bilirubin,Indirect 0.4 mg/dL (0.0-1.2); Bilirubin,Total 0.5 mg/dL (0.3-1.0); Blood Urea Nitrogen 48 mg/dL (8-23); Calcium 8.5 mg/dL (8.6-10.3); Carbon Dioxide 16 mEq/L (23-29); Chloride 115 mEq/L (98-107); Globulin 2.3 g/dL (2.4-3.5); Glucose 91 mg/dL (70-105); INR 1.1; Magnesium 1.5 mg/dL (1.6-2.6); Osmolality,Calculated 300 (280-300); Phosphorous 2.2 mg/dL (2.7-4.5); Potassium 4.1 mEq/L (3.5-5.1); Prothrombin Time 12.2 Seconds (9.4-12.1); Sodium 139 mEq/L (136-145); Total Protein 5.1 g/dL (6.4-8.9); eGFR For Non-African Americans 16 (> 60)
--- NOTE | 2018-08-15 14:05 | Emergency Department Note ---
Disposition Clinical Impression: Urinary tract infection Qualifiers: Urinary tract infection type: site unspecified Hematuria presence: without hematuria Qualified Code(s): N39.0 - Urinary tract infection, site not specified Sepsis Qualifiers: Sepsis type: sepsis due to unspecified organism Qualified Code(s): A41.9 - Sepsis, unspecified organism Disposition: Admitted As Inpatient Referrals: NONE,PCP [Non-Partnered Physician] - Forms: ED Satisfaction Letter Time of Disposition: 15:17 General Adult HPI - General Chief complaint: ED Fever Stated complaint: fever/NV/headache Time Seen by Provider: 08/15/18 11:32 Source: patient, EMS Limitations: no limitations - History of Present Illness Pain Scale: 0 - Related Data Home Medications Medication Instructions Recorded Confirmed clonazePAM [Clonazepam] 1 mg PO HS 08/09/18 08/09/18 Previous Rx's Medication Instructions Recorded Eltrombopag Olamine [Promacta] 50 mg PO DAILY #30 tablet 08/07/18 Cefdinir [Omnicef] 300 mg PO BID 9 Days #18 capsule 08/12/18 Sennosides/Docusate Sodium [Senna 1 each PO BID PRN #60 tablet 08/12/18 Plus] Allergies Allergy/AdvReac Type Severity Reaction Status Date / Time latex Allergy Rash Verified 08/15/18 11:30 phenobarbital Allergy Hives Verified 08/15/18 11:30 Constitutional: Reports: fever, chills, weakness Cardiovascular: Denies: chest pain, palpitations, dyspnea on exertion Respiratory: Denies: cough, dyspnea, wheezes Gastrointestinal: Reports: nausea, vomiting, diarrhea. Denies: abdominal pain, constipation, hematemesis, melena, hematochezia Genitourinary: Denies: dysuria, hematuria Musculoskeletal: Denies: back pain, neck pain Integumentary: Denies: rash Neurological: Reports: weakness. Denies: headache Endocrine: Reports: fatigue Past Medical History - Past Medical History Medical history: Reports: coronary artery disease, CVA, renal disease, other Surgical history: Reports: , cholecystectomy, other Psychiatric history: Reports: anxiety, depression - Social History Smoking Status: Never smoker Smokeless Tobacco Status: No Alcohol use: Reports: none Drug use: Reports: none Physical Exam - General Limitations: no limitations General appearance: alert Course Vital Signs Temperature 99.7 F H 08/15/18 11:30 Pulse Rate 102 08/15/18 11:30 Respiratory Rate 20 08/15/18 11:30 Blood Pressure 116/61 08/15/18 11:30 O2 Sat by Pulse Oximetry 97 08/15/18 11:30 Temperature 99.7 F H 08/15/18 11:30 Pulse Rate 90 08/15/18 14:30 Respiratory Rate 18 08/15/18 14:30 Blood Pressure 96/56 08/15/18 14:30 O2 Sat by Pulse Oximetry 100 08/15/18 14:30 Oxygen Delivery Oxygen Delivery Room Air Medical Decision Making - Lab Data Result diagrams: 08/15/18 11:55 08/15/18 11:55 Lab Results 08/15/18 08/15/18 08/15/18 Range/Units 11:55 11:55 11:55 WBC 5.7 (4.3-11.1) K/mcL RBC 3.32 L (3.82-4.97) M/mcL Hgb 9.8 L (11.5-15.4) g/dL Hct 30.4 L (35.3-44.9) % MCV 91.6 (83.0-100.0) fL MCH 29.5 (28.0-33.3) pg MCHC 32.2 (31.6-35.5) g/dL RDW 13.1 (11.5-14.5) % Plt Count 119 L D (140-400) K/mcL MPV 11.0 (9.4-12.4) fL Immature Gran % 1.6 (0-4) % Seg Neutrophils % 62.7 % Lymphocytes % 22.3 % Monocytes % 10.1 % Eosinophils % 2.8 % Basophils % 0.5 % Neutrophils # 3.6 (1.6-8.9) K/mcL Lymphocytes # 1.3 (0.6-4.6) K/mcL Monocytes # 0.6 (0.0-1.3) K/mcL Eosinophils # 0.2 (0.0-0.6) K/mcL Basophils # 0.0 (0.0-0.2) K/mcL PT 12.2 H (9.4-12.1) Seconds INR 1.1 APTT 33.0 (26.0-36.0) Seconds Sodium 139 (136-145) mEq/L Potassium 4.1 (3.5-5.1) mEq/L Chloride 115 H (98-107) mEq/L Carbon Dioxide 16 L (23-29) mEq/L BUN 48 H (8-23) mg/dL Creatinine 2.91 H (0.60-1.20) mg/dL Est GFR ( Amer) 19 L (> 60) Est GFR (Non-Af Amer) 16 L (> 60) BUN/Creatinine Ratio 16 (6-26) Glucose 91 (70-105) mg/dL Calculated Osmolality 300 (280-300) Lactic Acid (0.5-2.2) mmol/L Calcium 8.5 L (8.6-10.3) mg/dL Phosphorus 2.2 L (2.7-4.5) mg/dL Magnesium 1.5 L (1.6-2.6) mg/dL Total Bilirubin 0.5 (0.3-1.0) mg/dL Direct Bilirubin 0.1 (0.0-0.2) mg/dL Indirect Bilirubin 0.4 (0.0-1.2) mg/dL AST 11 L (13-39) Units/L ALT 10 (7-52) Units/L Alkaline Phosphatase 46 (34-104) Units/L Troponin I < 0.03 (< 0.04) ng/mL Serum Total Protein 5.1 L (6.4-8.9) g/dL Albumin 2.8 L (3.5-5.7) g/dL Globulin 2.3 L (2.4-3.5) g/dL Albumin/Globulin Ratio 1.2 (1.1-2.2) Urine Color (Yellow) Urine Clarity (Clear) Urine pH (5.0-8.0) pH Units Ur Specific [place] (1.010-1.025) Urine Protein (Neg-Trace) mg/dL Urine Glucose (UA) (Normal) mg/dL Urine Ketones (Negative) mg/dL Urine Blood (Negative) Urine Nitrite (Negative) Urine Bilirubin (Negative) Urine Urobilinogen (Normal) mg/dL Ur Leukocyte Esterase (Negative) Urine Microscopic RBC (0-3) per hpf Urine Microscopic WBC (0-3) per hpf Ur Squamous Epith Cells (None-Few) per lpf Urine Bacteria (None-Few) per hpf Hyaline Casts (None-Few) per lpf Urine Yeast Ur Culture Indicated? (NO) 08/15/18 08/15/18 Range/Units 11:55 14:13 WBC (4.3-11.1) K/mcL RBC (3.82-4.97) M/mcL Hgb (11.5-15.4) g/dL Hct (35.3-44.9) % MCV (83.0-100.0) fL MCH (28.0-33.3) pg MCHC (31.6-35.5) g/dL RDW (11.5-14.5) % Plt Count (140-400) K/mcL MPV (9.4-12.4) fL Immature Gran % (0-4) % Seg Neutrophils % % Lymphocytes % % Monocytes % % Eosinophils % % Basophils % % Neutrophils # (1.6-8.9) K/mcL Lymphocytes # (0.6-4.6) K/mcL Monocytes # (0.0-1.3) K/mcL Eosinophils # (0.0-0.6) K/mcL Basophils # (0.0-0.2) K/mcL PT (9.4-12.1) Seconds INR APTT (26.0-36.0) Seconds Sodium (136-145) mEq/L Potassium (3.5-5.1) mEq/L Chloride (98-107) mEq/L Carbon Dioxide (23-29) mEq/L BUN (8-23) mg/dL Creatinine (0.60-1.20) mg/dL Est GFR ( Amer) (> 60) Est GFR (Non-Af Amer) (> 60) BUN/Creatinine Ratio (6-26) Glucose (70-105) mg/dL Calculated Osmolality (280-300) Lactic Acid 0.8 (0.5-2.2) mmol/L Calcium (8.6-10.3) mg/dL Phosphorus (2.7-4.5) mg/dL Magnesium (1.6-2.6) mg/dL Total Bilirubin (0.3-1.0) mg/dL Direct Bilirubin (0.0-0.2) mg/dL Indirect Bilirubin (0.0-1.2) mg/dL AST (13-39) Units/L ALT (7-52) Units/L Alkaline Phosphatase (34-104) Units/L Troponin I (< 0.04) ng/mL Serum Total Protein (6.4-8.9) g/dL Albumin (3.5-5.7) g/dL Globulin (2.4-3.5) g/dL Albumin/Globulin Ratio (1.1-2.2) Urine Color Yellow (Yellow) Urine Clarity Turbid A (Clear) Urine pH 6.0 (5.0-8.0) pH Units Ur Specific [place] < 1.005 L (1.010-1.025) Urine Protein 100 H (Neg-Trace) mg/dL Urine Glucose (UA) Normal (Normal) mg/dL Urine Ketones Negative (Negative) mg/dL Urine Blood Moderate H (Negative) Urine Nitrite Negative (Negative) Urine Bilirubin Negative (Negative) Urine Urobilinogen Normal (Normal) mg/dL Ur Leukocyte Esterase Large H (Negative) Urine Microscopic RBC 30-50 H (0-3) per hpf Urine Microscopic WBC TNTC H (0-3) per hpf Ur Squamous Epith Cells Many H (None-Few) per lpf Urine Bacteria Present (None-Few) per hpf Hyaline Casts None Seen (None-Few) per lpf Urine Yeast Test Not Performed Ur Culture Indicated? NO. A (NO) Attestation Statement - Attestation Attestation: I examined this patient and my medical decision-making was reviewed with the Resident Physician. I agree with the documented findings, disposition and treatment plan as described except to the extent set forth below. Patient presents to the emergency department with fevers and shaking. Not feeling well. Just discharged after admission for a UTI. Patient states she feels like crap. She has some vomiting and diarrhea last night. On examination she has shaking/rigors. Heart is regular rate and rhythm. Lungs are clear. Abdomen is soft. She has some mild suprapubic tenderness. Plan. Patient be catheterized for urine. Still with a large amount leukocytes. IV antibiotics and admission.
[2018-08-15 14:28] LABS: Bilirubin,Urine Negative (Negative); Blood,Urine Moderate (Negative); Clarity,Urine Turbid (Clear); Color,Urine Yellow (Yellow); Glucose,Urine (UA) Normal (Normal); Ketones,Urine Negative (Negative); Leukocyte Esterase,Urine Large (Negative); Nitrite,Urine Negative (Negative); Protein,Urine 100 mg/dL (Neg-Trace); Specific Gravity,Urine < 1.005 (1.010-1.025); Urobilinogen,Urine Normal (Normal)
[2018-08-15 14:31] LABS: RBC,Urine 30-50 per hpf (0-3); Squamous Epithelial Cell,Urine Many per lpf (None-Few); WBC,Urine TNTC per hpf (0-3)
[2018-08-15] MEDS ORDERED: cefTRIAXone 1,000 MG in Water for inj. (sterile) 20 ML 10 ML IVP ONE (14:44)
[2018-08-15 14:48] LABS: Hyaline Casts,Urine None Seen per lpf (None-Few)
[2018-08-15 14:50] LABS: Bacteria,Urine Present per hpf (None-Few)
[2018-08-15] MEDS ORDERED: traMADol 50 MG TABLET PO PRN (16:40)
[2018-08-15] MEDS ORDERED: Naloxone 0.4 MG/ML INJ IVP PRN (16:40)
[2018-08-15] MEDS ORDERED: Ondansetron 4 MG/2 ML VIAL IVP PRN (16:42)
[2018-08-15] MEDS ORDERED: Potassium Chloride 40 MEQ in D5% in 0.45% NACL 1,000 ML IVC SCH (16:45)
[2018-08-15 17:00] LABS: Lipase 14 Units/L (11-82)
--- NOTE | 2018-08-15 18:02 | Internal Med History&Physical ---
Date of Encounter: 08/15/18 Time of Encounter: 17:59 Internal Medicine - H&P: HPI Chief complaint: tremors Admitted From: Home Plans for Post Hospital Care: Home History of present illness: Ms. Sullivan is a 83 year old female pmh of CAD, CVA, CKD stage 3 presenting with subjective fevers and tremors of 1 day duration. Patient also report one day history of non-bloody, non-bilious vomiting. Patient denies abdominal pain, shortness of breath, lightheadedness or palpitation. Patient reports she has chronic tremors following a stroke about 20 years ago but that her tremors worsens usually when she has a UTI. Past Med Surg Social Fam HX - Past Medical History Medical history: coronary artery disease, CVA, renal disease, other Additional medical history: protein malnutrition, cellulitis, thrombocytopenia. sacral decub stg 3 Psychiatric history: anxiety, depression - Past Surgical History Surgical History: , cholecystectomy, other Additional surgical history: right foot surgery, back surgery - Social History Smoking Status: Never smoker Smokeless Tobacco Status: No Alcohol use: none Drug use: none - Family History Mother Living Status: Hx Family Cardiac Disorders: Yes Hx Family Respiratory Disorders: No Hx Family Cancer: No Hx Family GI Disorders: No Hx Family Endocrine Disorder: No Hx Family Neuromuscular Disorders: No Hx Family Neurologic Disorders: No Hx Family HEENT Disorders: No Hx Family Autoimmune Disorders: No Father Living Status: Hx Family Cardiac Disorders: No Hx Family Respiratory Disorders: No Hx Family Cancer: No Hx Family GI Disorders: No Hx Family Endocrine Disorder: No Hx Family Neuromuscular Disorders: No Hx Family Neurologic Disorders: No Hx Family HEENT Disorders: No Hx Family Autoimmune Disorders: No Internal Medicine - H&P: Meds Eltrombopag Olamine [Promacta] 50 mg PO DAILY #30 tablet 08/07/18 [Rx] clonazePAM [Clonazepam] 1 mg PO HS 08/09/18 [History] Cefdinir [Omnicef] 300 mg PO BID 9 Days #18 capsule 08/12/18 [Rx] Sennosides/Docusate Sodium [Senna Plus] 1 each PO BID PRN #60 tablet 08/12/18 [Rx] Allergy/AdvReac Type Severity Reaction Status Date / Time latex Allergy Rash Verified 08/15/18 11:30 phenobarbital Allergy Hives Verified 08/15/18 11:30 All Systems PM: A 10-system review of systems was performed and is negative for pertinent findings except as documented above in the HPI. - Constitutional Constitutional: fever(s) (subjective ), weakness, no chills, no lethargy - EENT Eyes: no blurry vision Nose, mouth and throat: no change in voice - Cardiovascular Cardiovascular ROS IM: no chest pain, no dyspnea, no edema, no palpitations - Respiratory Respiratory: no cough, no wheezing, no excessive phlegm production, no change in phlegm color - Gastrointestinal Gastrointestinal: nausea, vomiting, no abdominal pain, no dyspepsia, no dysphagia, no melena - Genitourinary Genitourinary: no dysuria, no urinary hesitancy - Musculoskeletal Musculoskeletal ROS IM: muscle weakness, no myalgias - Neurological Neurological ROS: no numbness - Psychiatric Psychiatric: no anxiety - Endocrine Endocrine IM: no cold intolerance, no polydipsia, no polyphagia, no polyuria - Hematologic/Lymphatic Hematologic/Lymphatic: no lymphadenopathy - Constitutional Vitals: Temp Pulse Resp BP Pulse Ox 99.7 F H 90 20 105/51 100 08/15/18 11:30 08/15/18 14:30 08/15/18 16:23 08/15/18 16:23 08/15/18 14:30 Exam: Vitals; Reviewed General: Alert and oriented x4. In mild distress due to tremors. Skin: Normal color, no rash, no lesions. HEENT: dry oral mucosa. EOM, pupils equal, round and reactive. Cardiovascular: RRR, normal S1 & S2, no rubs, murmurs or gallops. No JVD. Pulse regular. Lungs:CTA, no wheezes or crackles. Abdomen: Soft, non-tender, no rigidity. Extremities: No edema. strength in the lower extr 3/5, 5/5 in the upper extremities b/l. Neurological: Normal cognition. resting tremors Rest of the physical exam is non contributory Internal Med - H&P Results - Labs CBC & Chem 7: 08/15/18 11:55 08/15/18 11:55 Labs: Short CBC 08/15/18 Range/Units 11:55 WBC 5.7 (4.3-11.1) K/mcL Hgb 9.8 L (11.5-15.4) g/dL Hct 30.4 L (35.3-44.9) % Plt Count 119 L D (140-400) K/mcL Neutrophils # 3.6 (1.6-8.9) K/mcL BMP 08/15/18 11:55 Sodium 139 Potassium 4.1 Chloride 115 H Carbon Dioxide 16 L BUN 48 H Creatinine 2.91 H Glucose 91 Calcium 8.5 L Cardiac Enzymes 08/15/18 Range/Units 11:55 Troponin I < 0.03 (< 0.04) ng/mL Liver Function 08/15/18 Range/Units 11:55 Total Bilirubin 0.5 (0.3-1.0) mg/dL Direct Bilirubin 0.1 (0.0-0.2) mg/dL AST 11 L (13-39) Units/L ALT 10 (7-52) Units/L Alkaline Phosphatase 46 (34-104) Units/L Albumin 2.8 L (3.5-5.7) g/dL Urine 08/15/18 Range/Units 14:13 Urine Color Yellow (Yellow) Urine Clarity Turbid A (Clear) Urine pH 6.0 (5.0-8.0) pH Units Ur Specific [place] < 1.005 L (1.010-1.025) Urine Protein 100 H (Neg-Trace) mg/dL Urine Glucose (UA) Normal (Normal) mg/dL - Impressions ITS Impressions Chest X-Ray 08/15/18 11:35 IMPRESSION: No definite acute pulmonary disease. Senescent pulmonary changes. Calcific atherosclerotic disease aorta. D/ / Jae Sin / Jae Sin Interpreting Provider: Jae Sin - Diagnostic Studies Chest x-ray Status: image reviewed by me (no acute abnormalities ) - Assessment and plan (1) UTI (urinary tract infection) Current Visit: Yes Status: Acute Assessment and plan: will start patient empirically on ceftriaxone 1gm/IV daily. Urine and blood culture ordered. Qualifiers: Urinary tract infection type: acute cystitis Hematuria presence: with hematuria Qualified Code(s): N30.01 - Acute cystitis with hematuria (2) DVT prophylaxis Current Visit: No Status: Acute Assessment and plan: Heparin subcutaneous. (3) Generalized weakness Current Visit: No Status: Acute Assessment and plan: daily PT/OT (4) CKD (chronic kidney disease) Current Visit: No Status: Chronic Assessment and plan: kidney function at baseline. fluid restriction to 1.5 litters a day. nephro protective strategies. if kidney function worsens will consult nephrology Qualifiers: Chronic kidney disease stage: unspecified stage Qualified Code(s): N18.9 - Chronic kidney disease, unspecified (5) Thrombocytopenia Current Visit: No Status: Chronic Assessment and plan: no need for intervention. will continue to monitor (6) Nausea & vomiting Current Visit: Yes Status: Acute Assessment and plan: Patient is started on PPIs, and antiemetics. On gentle IV hydration with D5NS@75mls/hr Qualifiers: Vomiting type: unspecified Vomiting Intractability: unspecified Qualified Code(s): R11.2 - Nausea with vomiting, unspecified - Time Spent With Patient Total time spent is greater than 50% in coordination of care (as documented) at patient's floor/unit and/or counseling patient:
[2018-08-15 18:25] LABS: C-Reactive Protein 50 mg/L (Less than 10)
[2018-08-15] MEDS: Pantoprazole 40 MG VIAL IVP SCH (18:34)
[2018-08-16] MEDS: *HR* Heparin 5,000 UNIT/ML VIAL SQ SCH ×2 (05:28→17:45)
[2018-08-16 06:49] LABS: Calcium 7.7 mg/dL (8.6-10.3); Magnesium 1.8 mg/dL (1.6-2.6); Phosphorous 2.3 mg/dL (2.7-4.5); Potassium 4.3 mEq/L (3.5-5.1)
[2018-08-16] MEDS: cefTRIAXone 1,000 MG in Water for inj. (sterile) 20 ML 10 ML IVP SCH (08:43)
[2018-08-16] MEDS: Pantoprazole 40 MG VIAL IVP SCH (08:44)
[2018-08-16] MEDS ORDERED: Ringers Solution, Lactated 1,000 ML IVC SCH (11:15)
--- NOTE | 2018-08-16 11:38 | Internal Med Progress Note ---
Hospitalist Progress Note - Encounter Date of Encounter: 08/16/18 Time of Encounter: 11:37 - Subjective Interval History: I have seen and evaluated the patient at bedside. Patient reports improvement in her overall status. the tremors are better, she denies feeling nauseated, no vomiting episodes overnight. denies chest pain, or shortness of breath. - Exam Vitals: Temp Pulse Resp BP Pulse Ox 97.3 F L 79 14 119/68 100 08/16/18 10:50 08/16/18 10:50 08/16/18 10:50 08/16/18 10:50 08/16/18 10:50 Exam: Vitals; Reviewed General: Alert and oriented x4. No distress HEENT: dry oral moist. Cardiovascular: RRR, normal S1 & S2, no rubs, murmurs or gallops. No JVD. Pulse regular. Lungs:CTA, no wheezes or crackles. Abdomen: Soft, non-tender, no rigidity. NABS in all 4 quadrants Extremities: No edema. strength in the lower extr 3/5, 5/5 in the upper extremities b/l. Neurological: Normal cognition. resting tremors Rest of the physical exam is non contributory - Assessment and Plan (1) UTI (urinary tract infection) Current Visit: Yes Status: Acute Assessment and Plan: patient denies urinary symptoms. continue ceftriaxone 1gm/IV daily. will treat patient for at least 5-7 days of antibiotics. (2) Nausea & vomiting Current Visit: Yes Status: Resolved Assessment and Plan: continue Ondansetron 4mg/IV Q4HR PRN for nausea. Will advance diet. (3) Generalized weakness Current Visit: No Status: Acute Assessment and Plan: Pt/OT has been ordered. (4) CKD (chronic kidney disease) Current Visit: No Status: Chronic Assessment and Plan: MUKUL on CKD possible due to GI lost and poor PO intake in the setting of nausea and vomiting on presentation. Will continue IV hydration with LR@75mls/hr x1 litter. continue nephroprotective strategies. (5) Thrombocytopenia Current Visit: No Status: Chronic Assessment and Plan: chronic stable thrombocytopenia. (6) Hypophosphatemia Current Visit: Yes Status: Acute Assessment and Plan: electrolyte replaced. will repeat phosphorous level tomorrow morning. DVT Prophylaxis: On heparin 5000 units subcutaneous twice a day. - Summary of Assessment and Plan Summary of Assessment and Plan: Patient to remain in the hospital due to MUKUL/CKD on IV fluids. Potential dischar ge tomorrow. - Time Spent with Patient Total time spent is greater than 50% in coordination of care (as documented) at patient's floor/unit and/or counseling patient: Greater than 35 minutes (45) Plan of Care Discussed with: patient (and the nurse.) Internal Medicine: Result - Labs CBC & Chem 7: 08/15/18 11:55 08/16/18 06:09 Labs: Short CBC 08/15/18 Range/Units 11:55 WBC 5.7 (4.3-11.1) K/mcL Hgb 9.8 L (11.5-15.4) g/dL Hct 30.4 L (35.3-44.9) % Plt Count 119 L D (140-400) K/mcL Neutrophils # 3.6 (1.6-8.9) K/mcL BMP 08/15/18 08/16/18 11:55 06:09 Sodium 139 138 Potassium 4.1 4.3 Chloride 115 H 115 H Carbon Dioxide 16 L 17 L BUN 48 H 47 H Creatinine 2.91 H 2.87 H Glucose 91 94 Calcium 8.5 L 7.7 L Cardiac Enzymes 08/15/18 Range/Units 11:55 Troponin I < 0.03 (< 0.04) ng/mL Liver Function 08/15/18 Range/Units 11:55 Total Bilirubin 0.5 (0.3-1.0) mg/dL Direct Bilirubin 0.1 (0.0-0.2) mg/dL AST 11 L (13-39) Units/L ALT 10 (7-52) Units/L Alkaline Phosphatase 46 (34-104) Units/L Albumin 2.8 L (3.5-5.7) g/dL Urine 08/15/18 Range/Units 14:13 Urine Color Yellow (Yellow) Urine Clarity Turbid A (Clear) Urine pH 6.0 (5.0-8.0) pH Units Ur Specific [place] < 1.005 L (1.010-1.025) Urine Protein 100 H (Neg-Trace) mg/dL Urine Glucose (UA) Normal (Normal) mg/dL - ABG Interpretation ABG results: PT/INR, D-dimer PT 12.2 Seconds (9.4-12.1) H 08/15/18 11:55 - Impressions Impressions Chest X-Ray 08/15/18 11:35 IMPRESSION: No definite acute pulmonary disease. Senescent pulmonary changes. Calcific atherosclerotic disease aorta. D/ / Jae Sin / Jae Sin Interpreting Provider: Jae Sin Consult Discharge Plan - Plan Referrals: NONE,PCP [Primary Care Provider] - (1) UTI (urinary tract infection) Qualifiers: Urinary tract infection type: acute cystitis Hematuria presence: with hematur ia Qualified Code(s): N30.01 - Acute cystitis with hematuria (2) Nausea & vomiting Qualifiers: Vomiting type: unspecified Vomiting Intractability: unspecified Qualified Code(s): R11.2 - Nausea with vomiting, unspecified (4) CKD (chronic kidney disease) Qualifiers: Chronic kidney disease stage: unspecified stage Qualified Code(s): N18.9 - Chronic kidney disease, unspecified
[2018-08-16 16:13] LABS: Bilirubin,Urine Negative (Negative); Blood,Urine Small (Negative); Clarity,Urine Turbid (Clear); Color,Urine Yellow (Yellow); Glucose,Urine (UA) Normal (Normal); Ketones,Urine Negative (Negative); Leukocyte Esterase,Urine Large (Negative); Nitrite,Urine Negative (Negative); Protein,Urine 30 mg/dL (Neg-Trace); Urobilinogen,Urine Normal (Normal)
[2018-08-16 16:17] LABS: Bacteria,Urine None Seen per hpf (None-Few); Hyaline Casts,Urine None Seen per lpf (None-Few); Squamous Epithelial Cell,Urine Moderate per lpf (None-Few); WBC,Urine TNTC per hpf (0-3)
--- NOTE | 2018-08-16 21:06 | Electrocardiograph Report ---
[address] [place] [address] Test Date: 2018-08-15 Pat Name: Susan Sullivan Department: EXAM2 Room: 3A Gender: F Customer Relations Advisor: : [id number] Requested By: Rehana Iqbal Order Number: [id number] Reading MD: Sharmila Carbajal Measurements Intervals [place] Rate: 96 P: SC: QRS: -9 QRSD: 81 T: -14 QT: 357 QTc: 452 Interpretive Statements ARTIFACT LIMITS INTERPRETATION Electronically Signed On 08-16-2018 21:04:53 EST by Sharmila Carbajal
[2018-08-17 04:12] LABS: Basophils % 0.5 %; Eosinophils # 0.4 K/mcL (0.0-0.6); Eosinophils % 6.6 %; Hematocrit 28.8 % (35.3-44.9); Hemoglobin 9.3 g/dL (11.5-15.4); Immature Granulocytes % 1.2 % (0-4); Lymphocytes # 2.9 K/mcL (0.6-4.6); Mean Corpuscular HGB Conc 32.3 g/dL (31.6-35.5); Mean Corpuscular Hemoglobin 29.6 pg (28.0-33.3); Mean Corpuscular Volume 91.7 fL (83.0-100.0); Mean Platelet Volume 11.4 fL (9.4-12.4); Monocytes # 0.7 K/mcL (0.0-1.3); Monocytes % 11.1 %; Platelet Count 123 K/mcL (140-400); Red Blood Count 3.14 M/mcL (3.82-4.97); Red Cell Distribution Width 13.2 % (11.5-14.5); Segmented Neutrophils % 32.6 %
[2018-08-17 04:33] LABS: Calcium 7.4 mg/dL (8.6-10.3); Magnesium 1.7 mg/dL (1.6-2.6); Phosphorous 4.5 mg/dL (2.7-4.5); Potassium 4.3 mEq/L (3.5-5.1)
[2018-08-17] MEDS: *HR* Heparin 5,000 UNIT/ML VIAL SQ SCH ×2 (05:32→18:24)
[2018-08-17] MEDS: cefTRIAXone 1,000 MG in Water for inj. (sterile) 20 ML 10 ML IVP SCH (08:58)
[2018-08-17] MEDS: Pantoprazole 40 MG VIAL IVP SCH (08:59)
[2018-08-17] MEDS ORDERED: Ringers Solution, Lactated 1,000 ML IVC SCH (10:15)
--- NOTE | 2018-08-17 12:03 | Internal Med Progress Note ---
Hospitalist Progress Note - Encounter Date of Encounter: 08/17/18 Time of Encounter: 12:00 - Subjective Interval History: I have seen and evaluated the patient at bedside. she reports feeling better but reports that after she took some medication last night she has a metallic taste. denies shortness of breath of difficulty breathing. - Exam Vitals: Temp Pulse Resp BP Pulse Ox 97.9 F 97 16 148/78 100 08/17/18 11:10 08/17/18 11:10 08/17/18 11:10 08/17/18 11:10 08/17/18 11:10 Exam: Vitals; Reviewed General: Alert and oriented x4. No distress Cardiovascular: RRR, normal S1 & S2, no rubs, murmurs or gallops. No JVD. Pulse regular. Lungs: CTA, no wheezes or crackles. Abdomen: Soft, non-tender, no rigidity. NABS in all 4 quadrants Extremities: No edema. Neurological: Normal cognition. resting tremors Rest of the physical exam is non contributory - Assessment and Plan (1) UTI (urinary tract infection) Current Visit: Yes Status: Acute Assessment and Plan: Patient with no urinary symptoms. Continue ceftriaxone 1 g daily. Urine culture pending. (2) Nausea & vomiting Current Visit: Yes Status: Resolved (3) Generalized weakness Current Visit: No Status: Acute Assessment and Plan: PT/OT daily. Patient reports that she is not interested in going to a rehabilitation facility and would like to go home with home PT/OT. (4) CKD (chronic kidney disease) Current Visit: No Status: Chronic Assessment and Plan: Will continue IV fluid for 24 more hours. Kidney function has been improving with hydration. Avoid nephrotoxic medication. (5) Thrombocytopenia Current Visit: No Status: Chronic (6) Hypophosphatemia Current Visit: Yes Status: Resolved DVT Prophylaxis: Continue heparin 5000 units subcutaneous twice a day - Summary of Assessment and Plan Summary of Assessment and Plan: We will keep patient in the hospital due to MUKUL/CKD improving with IV hydration. Potential discharge tomorrow morning. - Time Spent with Patient Total time spent is greater than 50% in coordination of care (as documented) at patient's floor/unit and/or counseling patient: Greater than 35 minutes (45) Plan of Care Discussed with: patient (and the nurse.) Internal Medicine: Result - Labs CBC & Chem 7: 08/17/18 03:40 08/17/18 03:40 Labs: Short CBC 08/17/18 Range/Units 03:40 WBC 6.1 (4.3-11.1) K/mcL Hgb 9.3 L (11.5-15.4) g/dL Hct 28.8 L (35.3-44.9) % Plt Count 123 L (140-400) K/mcL Neutrophils # 2.0 (1.6-8.9) K/mcL BMP 08/17/18 03:40 Sodium 139 Potassium 4.3 Chloride 116 H Carbon Dioxide 16 L BUN 43 H Creatinine 2.60 H Glucose 83 Calcium 7.4 L Urine 08/16/18 Range/Units 15:55 Urine Color Yellow (Yellow) Urine Clarity Turbid A (Clear) Urine pH 6.0 (5.0-8.0) pH Units Ur Specific [place] 1.010 (1.010-1.025) Urine Protein 30 H (Neg-Trace) mg/dL Urine Glucose (UA) Normal (Normal) mg/dL - ABG Interpretation ABG results: PT/INR, D-dimer PT 12.2 Seconds (9.4-12.1) H 08/15/18 11:55 Consult Discharge Plan - Plan Referrals: NONE,PCP [Primary Care Provider] - (1) UTI (urinary tract infection) Qualifiers: Urinary tract infection type: acute cystitis Hematuria presence: with hematuria Qualified Code(s): N30.01 - Acute cystitis with hematuria (2) Nausea & vomiting Qualifiers: Vomiting type: unspecified Vomiting Intractability: unspecified Qualified Code(s): R11.2 - Nausea with vomiting, unspecified (4) CKD (chronic kidney disease) Qualifiers: Chronic kidney disease stage: unspecified stage Qualified Code(s): N18.9 - Chronic kidney disease, unspecified
[2018-08-17] MEDS ORDERED: clonazePAM 1 MG TABLET PO SCH (21:00)
[2018-08-18] MEDS: *HR* Heparin 5,000 UNIT/ML VIAL SQ SCH (05:13)
[2018-08-18 08:04] VITALS: BP 134/66
[2018-08-18] MEDS: Pantoprazole 40 MG VIAL IVP SCH (08:37)
[2018-08-18] MEDS: cefTRIAXone 1,000 MG in Water for inj. (sterile) 20 ML 10 ML IVP SCH (08:37)
[2018-08-18 08:49] LABS: Calcium 7.8 mg/dL (8.6-10.3); Potassium 4.4 mEq/L (3.5-5.1)
--- NOTE | 2018-08-18 10:22 | Discharge Summary ---
- NOTES TO OUTPATIENT PROVIDER Notes to Outpatient Provider: Follow-up with your primary care physician within a week of hospital discharge. Orders not resulted at time of discharge: Pending orders 08/15/18 11:55 Culture,Blood [BC] Stat 08/15/18 15:10 Culture,Urine [RM] Stat Date of Encounter: 08/18/18 Time of Encounter: 10:18 - Discharge Diagnosis (1) UTI (urinary tract infection) Priority: Primary Status: Resolved Qualifiers: Urinary tract infection type: acute cystitis Hematuria presence: with hematuria Qualified Code(s): N30.01 - Acute cystitis with hematuria (2) Nausea & vomiting Priority: Secondary Status: Resolved Qualifiers: Vomiting type: unspecified Vomiting Intractability: unspecified Qualified Code(s): R11.2 - Nausea with vomiting, unspecified (3) Generalized weakness Priority: Secondary Status: Acute (4) CKD (chronic kidney disease) Priority: Secondary Status: Chronic Qualifiers: Chronic kidney disease stage: unspecified stage Qualified Code(s): N18.9 - Chronic kidney disease, unspecified (5) Thrombocytopenia Priority: Secondary Status: Chronic (6) Hypophosphatemia Priority: Secondary Status: Resolved Hospital course: Ms. Sullivan is a 83 year old female pmh of CAD, CVA, CKD stage 3 presenting with subjective fevers and tremors of 1 day duration. Patient also report one day history of non-bloody, non-bilious vomiting. Patient admitted to the hospital due to nausea & vomiting, MUKUL/CKD and UTI. Patient managed with PPI, antiemetic, IV fluids and IV antibiotics. Patient acute symptoms resolved, and patient is hemodynamically stable to be discharged home. Recommended to follow up with her pcp and senior electrical engineer within a week of hospital discharge. - Time Spent with Patient Total time spent providing and/or coordinating discharge services: Greater than 30 minutes (35) - Discharge Medications Home Medications: Eltrombopag Olamine [Promacta] 50 mg PO DAILY #30 tablet 08/07/18 [Rx] clonazePAM [Clonazepam] 1 mg PO HS 08/09/18 [History] Cefdinir [Omnicef] 300 mg PO BID 9 Days #18 capsule 08/12/18 [Rx] Sennosides/Docusate Sodium [Senna Plus] 1 each PO BID PRN #60 tablet 08/12/18 [Rx] Allergies/Adverse Reactions: Allergy/AdvReac Type Severity Reaction Status Date / Time latex Allergy Rash Verified 08/15/18 11:30 phenobarbital Allergy Hives Verified 08/15/18 11:30 Date of admission: 08/15/18 16:04 Primary care physician: PCP NONE Consults: 08/15/18 18:56 Consult to Welding Engineer [CONS] Routine Reason for SW Consult: Pt lives home alone and is bed ridden. [facility] provides hygiene and homemaking services Monday through Monday. [facility] Monday through Monday. [facility] PT/OT scheduled to start this week. 08/16/18 11:36 Consult to Occupational Therapy [CONS] Routine Comment: Evaluate, develop and implement POC Reason for Consult: Generalized weakness Does patient have active BEDREST order?: No Is patient medically & hemodynamically stable?: Yes Consult to Physical Therapy [CONS] Routine Comment: Evaluate, develop and implement POC Reason for Consult: generalized weakness Does patient have active BEDREST order?: No Is patient medically & hemodynamically stable?: Yes - Constitutional Vitals: Temp Pulse Resp BP Pulse Ox 98.5 F 85 16 134/66 98 08/18/18 07:58 08/18/18 07:58 08/18/18 07:58 08/18/18 07:58 08/18/18 07:58 Exam: Vitals; Reviewed General: Alert and oriented x4. No distress Cardiovascular: RRR, normal S1 & S2, no rubs, murmurs or gallops. No JVD. Pulse regular. Lungs: CTA, no wheezes or crackles. Abdomen: Soft, non-tender, no rigidity. NABS in all 4 quadrants Extremities: No edema. Neurological: Normal cognition. resting tremors Rest of the physical exam is non contributory - Patient Status Disposition: Home Health Service Condition: Good Functional capacity at discharge: bed bound Overall status at discharge: patient is back to baseline - Discharge Instructions Follow Up With: NONE,PCP [Primary Care Provider] - - Diet and Activity Activity: as per physical therapy Diet: low salt diet
--- NOTE | 2018-08-18 10:23 | Physician Discharge Referral ---
Home Health/Hosp Referral Info Transfer to: Home Health - Diagnosis (1) UTI (urinary tract infection) Priority: Primary Status: Resolved (2) Nausea & vomiting Priority: Secondary Status: Resolved (3) Generalized weakness Priority: Secondary Status: Acute (4) CKD (chronic kidney disease) Priority: Secondary Status: Chronic (5) Thrombocytopenia Priority: Secondary Status: Chronic (6) Hypophosphatemia Priority: Secondary Status: Resolved - Respiratory Orders None Smoking Cessation: Smoking cessation has been advised. For more information, call the [place] Tobacco Quit Line at 8-551-NVCT-NOW. - Diet/Nutrition Diet/Nutrition Orders: Regular - Activity Activity Orders: Bedrest - Services Needed Following services are medically necessary services: Home Health Aide, Physical Therapy, Occupational Therapy - Transfer Medications Home Medications: Eltrombopag Olamine [Promacta] 50 mg PO DAILY #30 tablet 08/07/18 [Rx] clonazePAM [Clonazepam] 1 mg PO HS 08/09/18 [History] Cefdinir [Omnicef] 300 mg PO BID 9 Days #18 capsule 08/12/18 [Rx] Sennosides/Docusate Sodium [Senna Plus] 1 each PO BID PRN #60 tablet 08/12/18 [Rx] Allergies/Adverse Reactions: Allergy/AdvReac Type Severity Reaction Status Date / Time latex Allergy Rash Verified 08/15/18 11:30 phenobarbital Allergy Hives Verified 08/15/18 11:30 Certification: Further, I certify that my clinical findings support that this patient is homebound (i.e. absences from home require considerable and taxing effort and are for medical reasons or oriental orthodox services or infrequently or short duration when for other reasons) because: Homebound Reason: Patient requires assistance of a person or device to safely leave home Attestation: My signature below is to certify that this patient is under my care and that I, or nurse practitioner, or a physician's exceptional children teacher assistant working with me, has a [id number] encounter with this patient.
== END 2018-08-18 14:25 | disposition home health service (06) ==
LOC: EMEROOARM 11:26 → 3ANU 11:26
PROVIDERS: ADMIT Internal Medicine; ATTEND Internal Medicine

== ENCOUNTER 2018-12-23 16:14 | Inpatient (IN) ==
[~2018-12-23 16:14] MED LIST: Aminoglycoside Consult 1 EACH MC ONE
--- NOTE | 2018-12-23 16:33 | Emergency Department Note ---
Disposition Clinical Impression: Dehydration, MUKUL (acute kidney injury) Failure to thrive Qualifiers: Failure to thrive age range: in adult Qualified Code(s): R62.7 - Adult failure to thrive Disposition: Admitted As Inpatient Referrals: NONE,PCP [Primary Care Provider] - Forms: ED Satisfaction Letter, Work/School Release Time of Disposition: 19:49 General Adult HPI - General Chief complaint: ED General Medical Stated complaint: tacicardia Time Seen by Provider: 12/23/18 16:24 Source: EMS Mode of arrival: EMS Limitations: altered mental status Nursing Notes Reviewed: Yes Vital Signs Reviewed: Yes - History of Present Illness HPI Narrative: 83 yo female with PMHx of CAD, CKD and stroke presents from [facility] with 8 days of refusing to eat and failure to thrive. Per the custodial the patient is full code and the son is power of decoration checker. Patient gives limited history as she does not speak and can only answer questions by nodding her head and shaking her head no. Patient denies any pain anywhere at this time. She is requesting water to drink. Pain Scale: 0 - Related Data Home Medications Medication Instructions Recorded Confirmed Ergocalciferol (VITAMIN D2) 400 unit PO BIDWM 12/23/18 12/23/18 [Vitamin D] Ibuprofen [Ibu] 600 mg PO Q6H PRN 12/23/18 12/23/18 Sennosides/Docusate Sodium [Senna 1 each PO BID PRN 12/23/18 12/23/18 Plus] clonazePAM [Clonazepam] 1 mg PO HS 12/23/18 12/23/18 Allergies Allergy/AdvReac Type Severity Reaction Status Date / Time latex Allergy Rash Verified 09/05/18 15:12 phenobarbital Allergy Hives Verified 09/05/18 15:12 Limitations: ROS unobtainable due to patients medical condition Past Medical History - Past Medical History Attestation: Yes The following information was validated with the patient. Source: patient Medical history: Reports: coronary artery disease, CVA, renal disease, other Surgical history: Reports: , cholecystectomy, other Psychiatric history: Reports: depression - Social History Smoking Status: Never smoker Smokeless Tobacco Status: No Alcohol use: Reports: none Drug use: Reports: none Physical Exam - General Limitations: altered mental status General appearance: lethargic - Head Head exam: atraumatic, normocephalic - Eye Eye exam: Present: normal appearance, PERRL - ENT ENT exam: normal exam, mucous membranes moist - Chest Chest inspection: Present: normal inspection. Absent: tenderness - Respiratory Respiratory exam: Present: normal lung sounds bilaterally. Absent: wheezes - Cardiovascular Cardiovascular exam: Present: normal rhythm, tachycardia - Abdominal Exam Abdominal exam: Present: soft, Non-Tender. Absent: distention, guarding, rebound, rigidity - Extremities Exam Extremities exam: Present: normal inspection. Absent: tenderness, pedal edema - Neurological Exam Neurological exam: Present: alert - Skin Skin exam: Present: warm, dry, intact Course Vital Signs Temperature 97.8 F 12/23/18 16:15 Pulse Rate 103 12/23/18 16:15 Respiratory Rate 24 12/23/18 16:15 Blood Pressure 85/73 12/23/18 16:15 O2 Sat by Pulse Oximetry 93 12/23/18 16:15 Temperature 97.9 F 12/23/18 19:02 Pulse Rate 93 12/23/18 19:02 Respiratory Rate 20 12/23/18 19:02 Blood Pressure 99/85 12/23/18 19:02 O2 Sat by Pulse Oximetry 96 12/23/18 19:02 Oxygen Delivery Oxygen Delivery Nasal Cannula Medical Decision Making - [facility] Narrative Medical decision making narrative: Patient presents from custodial due to failure to thrive. As the patient is unable to give adequate history we will do an EKG, basic labs, urinalysis and chest x-ray looking for signs of infection. We will also attempt to speak with the custodial to obtain more history and determine disposition of this patient. 1800 - patient's labs show evidence of a CKD, with an elevated creatinine over 9. Another liter of IV fluid will be ordered for the patient while we are awaiting urinalysis. 2 attempts at straight catheterization and been made that the patient is not producing any urine at this time. Other significant lab values are a mildly elevated troponin at 0.04 and a white count of 19. Chest x- ray as read by radiology and EKG are unremarkable. Spoke with the nurse at the custodial that was taking care of the patient tonight and the nurse states that the patient has been slowly declining functionally and was previously able to feed herself but has been refusing to eat recently. Today the patient had an episode where she was not responding to their verbal commands and when they checked her pulse, her pulse rate was only in the 30s and she was hypoxic in the 70s. The patient has never had problems with low pulse or hypoxia in the past that this nurse was aware of. The nurse states that the patient is full code and that her son is the power of decoration checker but the nurse was unable to contact the son to let him know that his mother was being taken to the hospital. Patient's blood pressure has been running low and is currently 77/65, we will continue to monitor and had a third liter of fluid as needed to control her blood pressure and dehydration. 1899 - patient still has not produced any urine. We will add a third liter of normal saline and admit the patient to the hospital for further treatment of her MUKUL and failure to thrive. 1914 - patient's blood pressure has improved and is now 100/75 while her third liter of fluids are running. Awaiting hospitalist to call back. 1944 - Dr. Atkins has accepted the patient for admission. He requests a Hurley be placed so they can monitor urine output, and for additional labs including coagulation lesion factors and CK drawn as well as empiric blood cultures. He does not request antibiotics being started at this time. - Medical Records Medical records reviewed: Yes I reviewed the patient's medical records. - Lab Data Lab results reviewed: Yes I reviewed the patient's lab results. Result diagrams: 12/23/18 17:14 12/23/18 17:14 Lab Results 12/23/18 12/23/18 12/23/18 Range/Units 17:14 17:14 17:14 WBC 19.9 H (4.3-11.1) K/mcL RBC 4.47 (3.82-4.97) M/mcL Hgb 13.5 (11.5-15.4) g/dL Hct 40.8 (35.3-44.9) % MCV 91.3 (83.0-100.0) fL MCH 30.2 (28.0-33.3) pg MCHC 33.1 (31.6-35.5) g/dL RDW 14.5 (11.5-14.5) % Plt Count 178 (140-400) K/mcL MPV 11.8 (9.4-12.4) fL Immature Gran % 2.4 (0-4) % Seg Neutrophils % 85.3 % Lymphocytes % 3.5 % Monocytes % 8.4 % Eosinophils % 0.0 % Basophils % 0.4 % Neutrophils # 17.0 H (1.6-8.9) K/mcL Lymphocytes # 0.7 (0.6-4.6) K/mcL Monocytes # 1.7 H (0.0-1.3) K/mcL Eosinophils # 0.0 (0.0-0.6) K/mcL Basophils # 0.1 (0.0-0.2) K/mcL Nucleated RBCs/100 WBC 0.2 H (0) /100 WBC Sodium 137 (136-145) mEq/L Potassium 4.7 (3.5-5.1) mEq/L Chloride 103 (98-107) mEq/L Carbon Dioxide 4 L* (23-29) mEq/L BUN > 130 H (8-23) mg/dL Creatinine 9.45 H (0.60-1.20) mg/dL Est GFR ( Amer) 5 L (> 60) Est GFR (Non-Af Amer) 4 L (> 60) BUN/Creatinine Ratio TNP Glucose 221 H (70-105) mg/dL Calculated Osmolality TNP Lactic Acid 3.2 H (0.5-2.2) mmol/L Calcium 8.8 (8.6-10.3) mg/dL Troponin I 0.04 H* (< 0.04) ng/mL - Radiology Data Radiology results reviewed: Yes I reviewed the patient's radiology results. - EKG Data EKG #1 EKG attestation: Yes I reviewed and interpreted this EKG. EKG results narrative: EKG obtained at 16:38 and 12/23/2018 Heart rate 10 3 bpm, TX interval 112, QRS duration 109, QT 358, QTC 469 Sinus tachycardia with low voltage. No acute ST segment elevations or depressions. Flattened T waves on the anterior and lateral leads which are unchanged when compared to previous EKG dated 09/13/2018.
--- NOTE | 2018-12-23 16:34 | Emergency Department Note ---
Disposition Clinical Impression: Failure to thrive Disposition: Admitted As Inpatient Time of Disposition: 16:34 General Adult HPI - General Chief complaint: ED General Medical Stated complaint: tacicardia Time Seen by Provider: 12/23/18 16:24 Source: EMS Limitations: altered mental status Nursing Notes Reviewed: Yes Vital Signs Reviewed: Yes - History of Present Illness HPI Narrative: Attestation note: Patient was seen with the emergency medicine resident/nurse practitioner/physician wellness assistant/transitional resident/medical student: Dr. MANISH JIMENEZ. I was present for the significant portions of the performance and interpretation of procedures and EKGs. I have personally performed a face to face evaluation on this patient. I have reviewed and agree with history and physical examination patient management and disposition 3-year-old female [facility] facility resident by EMS for failure to thrive. Per home patient's pulse was in the 30s her sat was in the 70s EMS arrived they said that her pulse was actually 105 her finger to very cold warm dropping her sats were within normal limits patient is not verbal she is nonambulatory son is power of corporate associate attorney Surgeries on His Way in or Not Patient Can Give Very Limited. History Mostly Nonverbal Dry Oral Mucosa Is Able to Track with Her Eyes Patient's Rectal Temperature Was 97.5 Was No Visible Decubiti. She Has Wasting of Her Extremities Lower. No Bruising or Signs of Cellulitis. Patient Will Undergo Workup with Screening Labs X-Rays UA and Culture Troponin EKG. We Will Contact the [facility] to Get More History. Admission Anticipated. Disposition Pending Pain Scale: 0 - Related Data Home Medications Medication Instructions Recorded Confirmed clonazePAM [Clonazepam] 1 mg PO HS 08/09/18 09/13/18 Previous Rx's Medication Instructions Recorded Sennosides/Docusate Sodium [Senna 1 each PO BID PRN #60 tablet 08/12/18 Plus] Ergocalciferol (VITAMIN D2) 400 unit PO BID 30 Days #60 tablet 09/05/18 [Vitamin D] Eltrombopag Olamine [Promacta] 50 mg PO DAILY #30 tablet 09/21/18 Patient Taking Own Medication 0 each PO DAILY each 09/28/18 Allergies Allergy/AdvReac Type Severity Reaction Status Date / Time latex Allergy Rash Verified 09/05/18 15:12 phenobarbital Allergy Hives Verified 09/05/18 15:12 Past Medical History - Past Medical History Medical history: Reports: coronary artery disease, CVA, renal disease, other Surgical history: Reports: , cholecystectomy, other Psychiatric history: Reports: depression - Social History Smoking Status: Never smoker Smokeless Tobacco Status: No Alcohol use: Reports: none Drug use: Reports: none Physical Exam - General Limitations: altered mental status General appearance: lethargic Course Vital Signs Temperature 97.8 F 12/23/18 16:15 Pulse Rate 103 12/23/18 16:15 Respiratory Rate 24 12/23/18 16:15 Blood Pressure 85/73 12/23/18 16:15 O2 Sat by Pulse Oximetry 93 12/23/18 16:15 Temperature 97.8 F 12/23/18 16:15 Pulse Rate 103 12/23/18 16:15 Respiratory Rate 24 12/23/18 16:15 Blood Pressure 85/73 12/23/18 16:15 O2 Sat by Pulse Oximetry 93 12/23/18 16:15 Oxygen Delivery Oxygen Delivery Nasal Cannula
[2018-12-23] MEDS ORDERED: 0.9 % Sodium Chloride 1,000 ML IVC ONE ×2 (16:48→18:47)
[2018-12-23 17:28] LABS: Basophils # 0.1 K/mcL (0.0-0.2); Basophils % 0.4 %; Hematocrit 40.8 % (35.3-44.9); Hemoglobin 13.5 g/dL (11.5-15.4); Immature Granulocytes % 2.4 % (0-4); Lymphocytes # 0.7 K/mcL (0.6-4.6); Lymphocytes % 3.5 %; Mean Corpuscular HGB Conc 33.1 g/dL (31.6-35.5); Mean Corpuscular Hemoglobin 30.2 pg (28.0-33.3); Mean Corpuscular Volume 91.3 fL (83.0-100.0); Mean Platelet Volume 11.8 fL (9.4-12.4); Monocytes # 1.7 K/mcL (0.0-1.3); Monocytes % 8.4 %; Nucleated Red Blood Cells 0.2 /100 WBC (0); Platelet Count 178 K/mcL (140-400); Red Blood Count 4.47 M/mcL (3.82-4.97); Red Cell Distribution Width 14.5 % (11.5-14.5); Segmented Neutrophils % 85.3 %; White Blood Count 19.9 K/mcL (4.3-11.1)
[2018-12-23 17:56] LABS: Blood Urea Nitrogen > 130 mg/dL (8-23); Calcium 8.8 mg/dL (8.6-10.3); Carbon Dioxide 4 mEq/L (23-29); Chloride 103 mEq/L (98-107); Glucose 221 mg/dL (70-105); Potassium 4.7 mEq/L (3.5-5.1); Sodium 137 mEq/L (136-145); Troponin I 0.04 ng/mL (< 0.04); eGFR For African Americans 5 (> 60); eGFR For Non-African Americans 4 (> 60)
[2018-12-23] MEDS: 0.9 % Sodium Chloride 1,000 ML IVC ONE ×2 (18:14→19:04)
[2018-12-23 20:17] LABS: Creatine Kinase 357 Units/L (30-223); INR 0.9; Prothrombin Time 10.2 Seconds (9.4-12.1)
[2018-12-23] MEDS ORDERED: 0.9 % Sodium Chloride 1,000 ML IVC SCH ×2 (20:30→23:15)
--- NOTE | 2018-12-23 20:31 | Internal Med History&Physical ---
<Clif Sharp - Last Filed: 12/24/18 02:31> Date of Encounter: 12/24/18 Time of Encounter: 20:30 Internal Medicine - H&P: HPI History of present illness: Mrs. Sullivan is an 83-year-old female with a PMH of CAD, COPD, and prior CVA who presented to [facility] ED on 12/23/18 from [facility] [place] half-way with 8 days of failure to thrive and poor PO intake. She is full code per half-way; son is POA. History was obtained by patient's nurse, who reported that patient is normally able to feed herself at baseline, but has been recently refusing to eat. Today, patient had episode where she was not responding to verbal commands. HR was in the 30s, and O2 sat was in the 70s. Patient was only able to provide a limited history, as she was only able to answer questions by nodding and shaking her head. On arrival, vital signs were significant for HR 103 bpm, RR 24, BP 85/73, and O2 sat 93% on 2 L. Labs are significant for leukocytosis at 19.9 with left shift, low CO2 of 4, Cr 9.45 (baseline 3.5-4), troponin 0.04, and lactate of 3.2. EKG demonstrated a heart rate of 103, NJ interval 112, QRS duration 109, QT 358, and QTC 469; sinus tachycardia with low voltage, flattened T waves in anterior and lateral leads, unchanged from previous; no ST segment elevations or depressions. CXR demonstrated no acute process. CT abdomen and pelvis demonstrated findings consistent with colitis. C. difficile toxin was (+). Due to hypotension and low urine output, patient was given 3 boluses of NS. BP subsequently improved to 100/75. A Uriostegui catheter will be placed so that we can monitor urine output. So far, no urine output is observed. Per review of previous records, patient was admitted to the hospital on 09/14 and was treated for a urinary tract infection and hydronephrosis requiring a R-sided ureter stent. On exam, patient has AMS. She orients to voice, but is unable to answer yes or no questions during my assessment. She is very ill and pale appearing, and has dry mucous membranes. She appears to be tachypneic and has a shortened inspiratory phase. BP has continued to drop despite 3 L of normal saline. Patient was transferred to the ICU for further management. Shortly after arrival, she was noted to be hypotensive with SBP in the 60s with A. fib RVR with HR in the 130s. Due to persistent hypotension, decision was made to place a CVC. Initially, multiple attempts were made to place an IJ CVC; however, patient's veins were collapsed and only a few millimeters in diameter. Decision was therefore made to place a right-sided femoral CVC, which was successfully placed. Patient was then placed on Levophed for pressure support. Initially, plan was to initiate oral vancomycin with IV Flagyl for fulminant C. difficile colitis; however, NG tube was unsuccessfully placed of her multiple times. Decision was made to initiate vancomycin enema with a dwell time of 1 hour. She is also receiving IV Flagyl. On ABG, patient was noted to have acidosis with bicarbonate unable to register; was started on a bicarbonate drip for this. Past Med Surg Social Fam HX - Past Medical History Medical history: coronary artery disease, CVA, renal disease, other Additional medical history: protein malnutrition, cellulitis, thrombocytopenia. sacral decub stg 3 *healed* Psychiatric history: depression - Past Surgical History Surgical History: , cholecystectomy, other Additional surgical history: right foot surgery, back surgery - Social History Smoking Status: Never smoker Smokeless Tobacco Status: No Alcohol use: none Drug use: none - Family History Mother Living Status: Hx Family Cardiac Disorders: Yes Hx Family Respiratory Disorders: No Hx Family Cancer: No Hx Family GI Disorders: No Hx Family Endocrine Disorder: No Hx Family Neuromuscular Disorders: No Hx Family Neurologic Disorders: No Hx Family HEENT Disorders: No Hx Family Autoimmune Disorders: No Father Living Status: Hx Family Cardiac Disorders: No Hx Family Respiratory Disorders: No Hx Family Cancer: No Hx Family GI Disorders: No Hx Family Endocrine Disorder: No Hx Family Neuromuscular Disorders: No Hx Family Neurologic Disorders: No Hx Family HEENT Disorders: No Hx Family Autoimmune Disorders: No Internal Medicine - H&P: Meds Ergocalciferol (VITAMIN D2) [Vitamin D] 400 unit PO BIDWM 12/23/18 [History] Ibuprofen [Ibu] 600 mg PO Q6H PRN 12/23/18 [History] Sennosides/Docusate Sodium [Senna Plus] 1 each PO BID PRN 12/23/18 [History] clonazePAM [Clonazepam] 1 mg PO HS 12/23/18 [History] Allergy/AdvReac Type Severity Reaction Status Date / Time latex Allergy Rash Verified 09/05/18 15:12 phenobarbital Allergy Hives Verified 09/05/18 15:12 All Systems PM: A 10-system review of systems was performed and is negative for pertinent findings except as documented above in the HPI. - Constitutional Vitals: Temp Pulse Resp BP Pulse Ox 97.9 F 96 20 91/72 94 12/23/18 19:02 12/23/18 20:05 12/23/18 20:05 12/23/18 20:05 12/23/18 20:05 Exam: General: Non-conversant, ill-appearing, thin Head: atraumatic, normocephalic; dry mucous membranes Eye: PERRL, EOMI Neck: Supple, trachea midline Respiratory: Tachypnea, shortened inspiratory phase, Diminished breath sounds b/l; No accessory muscle use, wheezes, rales, or rhonchi Cardiovascular: Tachycardic, +S1/+S2; no murmurs, rubs, gallops Abdomen: Soft, nondistended Extremities: All tubal bruises and skin tears present on lower extremities bilaterally Psychiatric: Unable to assess Skin: Dry, pale Internal Med - H&P Results - Labs CBC & Chem 7: 12/23/18 17:14 12/23/18 22:55 Labs: Short CBC 12/23/18 Range/Units 17:14 WBC 19.9 H (4.3-11.1) K/mcL Hgb 13.5 (11.5-15.4) g/dL Hct 40.8 (35.3-44.9) % Plt Count 178 (140-400) K/mcL Neutrophils # 17.0 H (1.6-8.9) K/mcL BMP 12/23/18 17:14 Sodium 137 Potassium 4.7 Chloride 103 Carbon Dioxide 4 L* BUN > 130 H Creatinine 9.45 H Glucose 221 H Calcium 8.8 Cardiac Enzymes 12/23/18 Range/Units 17:14 Troponin I 0.04 H* (< 0.04) ng/mL - Impressions ITS Impressions Chest X-Ray 12/23/18 16:30 IMPRESSION: No acute pulmonary finding D/ / Hair Mahoney MD / Hair Mahoney MD Interpreting Provider: Hair Mahoney MD - Assessment and Plan (1) Sepsis Current Visit: Yes Status: Acute Assessment and plan: Assessment: - Met 3/4 SIRS criteria on presentation: HR 103, RR 24, WBC 19.4; hypotensive on arrival at 85/73; lactate 3.2 - Causative organism unknown at this time; likely secondary to C. difficile colitis - Per review of prior records, patient has history of E. coli (pansensitive) and Amanda in the urine - During previous hospitalization (09/14), was treated with ceftriaxone + micafungin for UTI; discharged with cefdinir + fluconazole for 14 day course - UA with culture has been ordered, but patient has not produced any urine - CT abdomen/pelvis demonstrated evidence of enteric colitis; subsequent C. difficile test was (+) - 3 boluses of NS were given in the ED; SBP initially increased, but subsequently decreased back to the 70s - Blood cultures were drawn 2 - After transfer to the ICU, patient was noted to be in A. fib with RVR with HR 130s and hypotensive with SBP in the 60s - Decision was made to place CVC due to hypotension; after unsuccessfully placing R IJ line due to collapsed veins, R-sided femoral CVC was placed Plan: - Vancomycin enema + IV Flagyl for C. diff (fulminant) - IV vancomycin + IV Zosyn for sepsis - Levophed for pressure support - Trend lactic acid; repeat AM labs - Continue IV fluid resuscitation with normal saline - Awaiting blood CXs; tailor antibiotic therapy accordingly (2) Acute kidney injury superimposed on chronic kidney disease Current Visit: No Status: Acute Assessment and plan: - Etiology unknown at this time; possible etiologies include obstruction (history of hydronephrosis requiring stent placement) versus prerenal from poor PO intake - Patient has reportedly had poor oral intake for the last several days, refusing to eat or drink anything - Labs on presentation demonstrated elevated creatinine at 9.45 - Known history of CKD stage IV with a baseline creatinine between 3.5 and 4 - She has not produced any urine since presentation despite receiving 3 boluses of NS; Uriostegui catheter has been placed - CT abdomen and pelvis: chronic moderate L hydroureteronephrosis unchanged from 09/21/2018; No obstructing stone or mass identified Plan: - IV fluid hydration - Once urine is obtained, obtain urinalysis with ARF studies - Consult to nephrology (3) Enterocolitis Current Visit: Yes Status: Acute Assessment and plan: - Patient was noted to have abdominal pain associated with diarrhea on presentation - CT scan abd/pelv demonstrated diffuse circumferential colonic wall thickening and wall thickening of the mid and distal ileum compatible with enterocolitis - No evidence of perforation or obstruction was seen - FOBT and C. difficile toxin are both positive - Patient meets criteria for fulminant C. difficile with leukocytosis, elevated creatinine, and evidence of hypotension/shock - Initially, plan was to start oral vancomycin; however, after multiple attemp ts, NG tube could not be placed Plan: - IV Flagyl 500 mg Q8 and Vancomycin enema (dwell time 1 hour) - Repeat a.m. labs (4) Elevated troponin Current Visit: Yes Status: Acute Assessment and plan: - Presented with elevated troponin 0.04 in the setting of hypotension and MUKUL on CKD - Etiology unknown; possibly secondary to demand ischemia - Patient does have a documented history of CAD; ACS cannot be ruled out Plan: - Trend troponin 3 - If troponin elevates, we will start patient on heparin drip (5) DVT prophylaxis Current Visit: Yes Status: Acute Assessment and plan: - Heparin 5000 SQ - Time Spent With Patient Total time spent is greater than 50% in coordination of care (as documented) at patient's floor/unit and/or counseling patient: LeonMillyJoshua - Last Filed: 12/24/18 02:41> Date of Encounter: 12/23/18 Internal Medicine - H&P: HPI Chief complaint: weakness Admitted From: Long-term Nursing Facility Plans for Post Hospital Care: Transfer [facility] All Systems PM: A 10-system review of systems was performed and is negative for pertinent findings except as documented above in the HPI. - Constitutional Vitals: Temp Pulse Resp BP Pulse Ox 97.3 F L 102 22 84/65 99 12/23/18 22:09 12/23/18 21:01 12/23/18 22:09 12/23/18 22:09 12/23/18 21:01 Internal Med - H&P Results - Labs CBC & Chem 7: 12/23/18 17:14 12/23/18 22:55 Labs: Short CBC 12/23/18 Range/Units 17:14 WBC 19.9 H (4.3-11.1) K/mcL Hgb 13.5 (11.5-15.4) g/dL Hct 40.8 (35.3-44.9) % Plt Count 178 (140-400) K/mcL Neutrophils # 17.0 H (1.6-8.9) K/mcL BMP 12/23/18 17:14 Sodium 137 Potassium 4.7 Chloride 103 Carbon Dioxide 4 L* BUN > 130 H Creatinine 9.45 H Glucose 221 H Calcium 8.8 Cardiac Enzymes 12/23/18 Range/Units 17:14 Troponin I 0.04 H* (< 0.04) ng/mL Urine 12/23/18 Range/Units 21:20 Urine Color Red A (Yellow) Urine Clarity Turbid A (Clear) Urine pH 5.5 (5.0-8.0) pH Units Ur Specific [place] 1.011 (1.010-1.025) Urine Protein >=1000 H (Neg-Trace) mg/dL Urine Glucose (UA) Normal (Normal) mg/dL - Impressions ITS Impressions Chest X-Ray 12/23/18 16:30 IMPRESSION: No acute pulmonary finding D/ / Hair Mahoney MD / Hair Mahoney MD Interpreting Provider: Hair Mahoney MD Abdomen/Pelvis CT 12/23/18 20:17 IMPRESSION: 1. Diffuse circumferential colonic wall thickening and wall thickening of the mid and distal ileum compatible with enterocolitis. No perforation or obstruction. 2. Status post cholecystectomy. 3. Chronic moderate left hydroureteronephrosis unchanged from 09/21/2018. No obstructing stone or mass identified. D/ / Hung Haji MD / Hung Haji MD Interpreting Provider: Hung Haji MD Head CT 12/23/18 20:57 IMPRESSION: 1. No acute intracranial abnormality. 2. Chronic changes noted above. D/ / Emery Goodman MD / Emery Goodman MD Interpreting Provider: Emery Goodman MD - Time Spent With Patient Total time spent is greater than 50% in coordination of care (as documented) at patient's floor/unit and/or counseling patient: - Attending Attestation I performed a history and physical exam of the patient on 12/23/18 and discussed management with the resident. I reviewed the resident's note and agree with the documented findings and plan of care. Susan Sullivan is an 83 year old woman who was brought in from her half-way with the complaint of not eating or drinking for 8 days, notably hypotensive on arrival to the ER and slightly improved with fluid resuscitation. Labs revealed bicarb of 4, troponin 0.04, wbc 19.9, lactate 3.2 and creatinine 9.45. She was presented to me for admission. At the time of my assessment of the patient in the ER, her abdomen was exquisitely tender, she had active diarrhea that appeared bloody and was quite hypotensive with systolic in the 70s. I ordered a STAT CT which showed en terocolitis and FOT that was positive. Stool c.diff testing will be sent. Admit to ICU. Start broad spectrum empiric antimicrobials. Start severe C.diff therapy empirically. Trend lactate/lytes. Place uriostegui for urine output monitoring. She will need a nephrology consult. Check CK. Prognosis is guarded as the patient is in a very critical state with poor reserves. She may end up on vasopressor supp ort. JAMA CLAYTON.
[2018-12-23 21:37] LABS: Bilirubin,Urine Moderate (Negative); Blood,Urine Large (Negative); Clarity,Urine Turbid (Clear); Color,Urine Red (Yellow); Glucose,Urine (UA) Normal (Normal); Ketones,Urine 15 mg/dL (Negative); Leukocyte Esterase,Urine Large (Negative); Nitrite,Urine Positive (Negative); PH,Urine 5.5 pH Units (5.0-8.0); Protein,Urine >=1000 mg/dL (Neg-Trace); Specific Gravity,Urine 1.011 (1.010-1.025); Urobilinogen,Urine Normal (Normal)
[2018-12-23] MEDS ORDERED: Naloxone 0.4 MG/ML INJ IVP PRN (21:37)
[2018-12-23] MEDS ORDERED: Vancomycin Oral Soln 125 MG/2.5 ML UDC PO SCH (22:00)
[2018-12-23] MEDS ORDERED: Vancomycin 0 MG in 0.9 % Sodium Chloride 250 ML IVPB SCH (22:00)
[2018-12-23] MEDS ORDERED: Vancomycin 500 MG in 0.9 % Sodium Chloride Mini Bag 100 ML IVPB ONE (23:00)
[2018-12-23] MEDS ORDERED: Piperacillin/Tazobactam 3.375 GM in 0.9 % Sodium Chloride Mini Bag 100 ML IVPB SCH (23:00)
[2018-12-23] MEDS ORDERED: OXYCODONE Oral CONC 10 MG/0.5 ML ORAL.SYG SL PRN (23:00)
[2018-12-23] MEDS ORDERED: Desitin (Zinc Oxide) 56 GM TUBE TP PRN (23:03)
[2018-12-23 23:58] LABS: Alanine Aminotransferase 10 Units/L (7-52); Albumin 2.4 g/dL (3.5-5.7); Albumin/Globulin Ratio 1.4 (1.1-2.2); Alkaline Phosphatase 53 Units/L (34-104); Aspartate Amino Transferase 34 Units/L (13-39); Bilirubin,Direct 0.1 mg/dL (0.0-0.2); Bilirubin,Indirect 0.2 mg/dL (0.0-1.2); Bilirubin,Total 0.3 mg/dL (0.3-1.0); Blood Urea Nitrogen > 130 mg/dL (8-23); Calcium 6.8 mg/dL (8.6-10.3); Carbon Dioxide 5 mEq/L (23-29); Chloride 116 mEq/L (98-107); Globulin 1.7 g/dL (2.4-3.5); Glucose 133 mg/dL (70-105); Magnesium 1.8 mg/dL (1.6-2.6); Phosphorous 8.3 mg/dL (2.7-4.5); Potassium 3.7 mEq/L (3.5-5.1); Sodium 139 mEq/L (136-145); Total Protein 4.1 g/dL (6.4-8.9); Troponin I 0.05 ng/mL (< 0.04); eGFR For African Americans 6 (> 60); eGFR For Non-African Americans 5 (> 60)
[2018-12-24] MEDS ORDERED: *HR* LORazepam 2 MG/ML VIAL ONE (00:09)
[2018-12-24 00:55] LABS: ABG PCO2 < 13 mmHg (35-45); ABG PH 7.15 pH Units (7.32-7.45); ABG PO2 163 mmHg (85-104)
[2018-12-24] MEDS ORDERED: *HR* LORazepam 2 MG/ML VIAL IVP ONE (01:12)
[2018-12-24] MEDS: *HR* Metoprolol 5 MG/5 ML VIAL IVP ONE ×2 (01:14→01:52)
[2018-12-24] MEDS: Norepinephrine 4 MG in D5% in Water 250 ML IVC SCH ×2 (01:14→08:06)
[2018-12-24] MEDS ORDERED: Sodium Bicarbonate 150 MEQ in D5% in Water 1,000 ML IVC SCH ×2 (01:15→04:43)
--- NOTE | 2018-12-24 02:49 | Procedure Note ---
Date of procedure: 12/24/18 Pre-op diagnosis: hypotension Post-op diagnosis: same Procedure: Central Venous Catheter (CVC, Central Line) Placement Date: 12/24/18 Time: 00:30 Indication: Hemodynamic monitoring/Intravenous access/hypotension requiring pressor support Resident: Clif Sharp Attending: Brandy Atkins The patient was placed in a dependent position appropriate for central line placement based on the vein to be cannulated. The patients right neck was prepped and draped in sterile fashion. 1% Lidocaine was used to anesthetize the surrounding skin area. On ultrasound, patient's veins were noted to be very small in diameter and collapsed, making procedure difficult. After multiple unsuccessful attempts, decision was made to place a CVC in right common femoral vein. The patient was placed in a dependent position appropriate for central line placement based on the vein to be cannulated. The patients right groin was prepped and draped in sterile fashion. 1% Lidocaine was used to anesthetize the surrounding skin area. A triple lumen catheter was introduced into the the common femoral vein using the Seldinger technique. The catheter was threaded smoothly over the guide wire and appropriate blood return was obtained. Each lumen of the catheter was evacuated of air and flushed with sterile saline. The catheter was then sutured in place to the skin and a sterile dressing applied. Perfusion to the extremity distal to the point of catheter insertion was checked and found to be adequate. Attending was present for the entire procedure. Estimated Blood Loss: 5cc The patient tolerated the procedure well and there were no complications. Was there an legal executive assistant present: Yes Technical Communicator: Clif Sharp Estimated blood loss (cc): 5 Specimen: none Pathology: none sent Condition: critical Disposition: ICU
[2018-12-24 03:48] LABS: Basophils # 0.1 K/mcL (0.0-0.2); Basophils % 0.4 %; Hematocrit 33.1 % (35.3-44.9); Immature Granulocytes % 2.3 % (0-4); Lymphocytes # 0.6 K/mcL (0.6-4.6); Lymphocytes % 4.2 %; Mean Corpuscular HGB Conc 33.2 g/dL (31.6-35.5); Mean Corpuscular Hemoglobin 30.2 pg (28.0-33.3); Mean Corpuscular Volume 90.9 fL (83.0-100.0); Mean Platelet Volume 11.2 fL (9.4-12.4); Monocytes # 0.9 K/mcL (0.0-1.3); Monocytes % 6.6 %; Neutrophils # 11.9 K/mcL (1.6-8.9); Nucleated Red Blood Cells 0.3 /100 WBC (0); Platelet Count 115 K/mcL (140-400); Red Blood Count 3.64 M/mcL (3.82-4.97); Red Cell Distribution Width 14.4 % (11.5-14.5); Segmented Neutrophils % 86.5 %; White Blood Count 13.7 K/mcL (4.3-11.1)
[2018-12-24 04:13] LABS: Blood Urea Nitrogen > 130 mg/dL (8-23); Calcium 6.7 mg/dL (8.6-10.3); Carbon Dioxide 4 mEq/L (23-29); Chloride 116 mEq/L (98-107); Glucose 206 mg/dL (70-105); Magnesium 1.8 mg/dL (1.6-2.6); Phosphorous 8.6 mg/dL (2.7-4.5); Potassium 3.7 mEq/L (3.5-5.1); Sodium 141 mEq/L (136-145); eGFR For African Americans 6 (> 60); eGFR For Non-African Americans 5 (> 60)
[2018-12-24 04:47] LABS: Platelet Estimate Normal (Normal)
[2018-12-24] MEDS ORDERED: *HR* Heparin 5,000 UNIT/ML VIAL SQ SCH (06:00)
--- NOTE | 2018-12-24 06:17 | Pulmonology Progress Note ---
Date of Encounter: 12/24/18 Objective PUL Vital signs: Last Vital Signs Temp 95.8 F L 12/24/18 03:00 Pulse 126 12/24/18 06:00 Resp 25 12/24/18 06:00 BP 97/45 12/24/18 06:00 Pulse Ox 96 12/24/18 06:00 Results - Laboratory Findings CBC and BMP: 12/24/18 03:36 12/24/18 03:36 ABG ABG pH 7.15 pH Units (7.32-7.45) L* 12/24/18 00:49 ABG pCO2 < 13 mmHg (35-45) L* 12/24/18 00:49 ABG pO2 163 mmHg (85-104) H 12/24/18 00:49 ABG O2 Saturation TNP 12/24/18 00:49 PT/INR, D-dimer PT 10.2 Seconds (9.4-12.1) 12/23/18 17:14 Abnormal lab findings: Abnormal lab results WBC 13.7 K/mcL (4.3-11.1) H 12/24/18 03:36 RBC 3.64 M/mcL (3.82-4.97) L 12/24/18 03:36 Hgb 11.0 g/dL (11.5-15.4) L D 12/24/18 03:36 Hct 33.1 % (35.3-44.9) L 12/24/18 03:36 Plt Count 115 K/mcL (140-400) L 12/24/18 03:36 11.9 K/mcL (1.6-8.9) H 12/24/18 03:36 1.7 K/mcL (0.0-1.3) H 12/23/18 17:14 Nucleated RBCs/100 WBC 0.3 /100 WBC (0) H 12/24/18 03:36 ABG pH 7.15 pH Units (7.32-7.45) L* 12/24/18 00:49 ABG pCO2 < 13 mmHg (35-45) L* 12/24/18 00:49 ABG pO2 163 mmHg (85-104) H 12/24/18 00:49 Chloride 116 mEq/L (98-107) H 12/24/18 03:36 Carbon Dioxide 4 mEq/L (23-29) L* 12/24/18 03:36 BUN > 130 mg/dL (8-23) H 12/24/18 03:36 7.57 mg/dL (0.60-1.20) H 12/24/18 03:36 Est GFR ( Amer) 6 (> 60) L 12/24/18 03:36 Est GFR (Non-Af Amer) 5 (> 60) L 12/24/18 03:36 Glucose 206 mg/dL (70-105) H 12/24/18 03:36 POC Glucose 102 mg/dL (70-99) H 12/23/18 22:45 Lactic Acid 3.2 mmol/L (0.5-2.2) H 12/23/18 17:14 Calcium 6.7 mg/dL (8.6-10.3) L 12/24/18 03:36 Phosphorus 8.6 mg/dL (2.7-4.5) H 12/24/18 03:36 357 Units/L (30-223) H 12/23/18 17:14 0.05 ng/mL (< 0.04) H* 12/23/18 22:55 4.1 g/dL (6.4-8.9) L 12/23/18 22:55 2.4 g/dL (3.5-5.7) L 12/23/18 22:55 1.7 g/dL (2.4-3.5) L 12/23/18 22:55 Red (Yellow) A 12/23/18 21:20 Turbid (Clear) A 12/23/18 21:20 >=1000 mg/dL (Neg-Trace) H 12/23/18 21:20 15 mg/dL (Negative) H 12/23/18 21:20 Large (Negative) H 12/23/18 21:20 Positive (Negative) A 12/23/18 21:20 Moderate (Negative) H 12/23/18 21:20 Ur Leukocyte Esterase Large (Negative) H 12/23/18 21:20 Ur Culture Indicated? YES (NO) A 12/23/18 21:20 Positive (Negative) A 12/23/18 21:15 Stl C. diff Tox B Gene Positive (Negative) A 12/23/18 21:20 - Microbiology Findings Microbiology Findings: Microbiology, Last 48 Hours 12/23/18 20:21 Blood Culture - Preliminary Peripheral Venipuncture Culture is incubating and being continuously monitored for growth. Final report to follow. 12/23/18 20:21 Blood Culture - Preliminary Peripheral Venipuncture Culture is incubating and being continuously monitored for growth. Final report to follow. 12/23/18 21:20 Urine Culture - Preliminary Urine,Catheterized (Straight) Culture is incubating. 12/23/18 21:20 Clostridium difficile Toxin A & B - Final Stool - Clinical Findings Intake & Output: Intake & Output 12/23/18 12/23/18 12/24/18 15:59 23:59 07:59 Intake Total 4000 / 4000 1257 / 1257 Output Total 25 / 25 Balance 4000 / 4000 1232 / 1232 Weight 44.2 kg 44.2 kg Consult Discharge Plan - Plan Referrals: NONE,PCP [Primary Care Provider] -
[2018-12-24] MEDS ORDERED: Glycopyrrolate 0.2 MG/ML VIAL IVP PRN (07:11)
[2018-12-24] MEDS ORDERED: *HR* LORazepam 2 MG/ML VIAL IVP PRN (07:11)
[2018-12-24] MEDS ORDERED: OXYCODONE Oral CONC 10 MG/0.5 ML ORAL.SYG SL PRN (07:12)
--- NOTE | 2018-12-24 07:13 | Pulmonology Consult Note ---
<Albaro Piña S - Last Filed: 12/24/18 07:59> Date of Encounter: 12/24/18 Time of Encounter: 07:14 Assessment and Plan (1) Sepsis Status: Acute Sepsis likely secondary to c dif infxn vs UTI - meets criteria for severe c dif infxn for creatintine/wbc/hypotension - UA positive for nitrites/leukocyte esterase in the ER Does meet criteria for sepsis for WBC, HR, RR, low blood pressures Source of infxn intra-abdominal versus urinary Plan: - at this time pt going to be made comfort care morphine for pain prn ativan prn anxiety robinul prn secretions - d/c abx - d/c levophed - comfort care papers signed and given to charge nurse, CODE STATUS updated in the computer Family does NOT wish for intubation, CPR, further CVC placement/attempts, dialysis. Qualifiers: Sepsis type: sepsis due to unspecified organism Qualified Code(s): A41.9 - Sepsis, unspecified organism (2) DVT prophylaxis Status: Acute scd (3) Elevated troponin Status: Acute Troponin 0.05, likely demand ischemia in the setting of acute renal failure. (4) Enterocolitis Status: Acute Pt noted to have abdominal pain to palpation, (+) diarrhea On admission the CT abd diffuse circumferential colonic wall thickening and wall thickening of the mid and distal ileum compatible with enterocolitis. No perforation or obstruction. Pt tested positive for c dif and FOBT (+) Did meet criteria for severe c dif infxn with elevated creatininr and WBC, evidence of hypotension At this time all abx have been discontinued. Pt is to be comfort care. (5) Acute kidney injury superimposed on chronic kidney disease Status: Acute Likely pre-renal with component of intrinsic renal. Creatinine on admission 9.45, repeat after IVF 7.41 Urine studies pending. Nephrology consulted, however, pt going comfort care (6) Encounter for evaluation of ability to make decisions regarding care Status: Acute Spoke with son at bedside who stated that the patient wouldn't wish for CPR, intubation or dialysis. She wishes for comfort care measures. Papers signed and given to the charge nurse. CODE STATUS updated in the computer. 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 (8) UTI (urinary tract infection) Status: Acute See above. Qualifiers: Urinary tract infection type: acute cystitis Hematuria presence: with hematuria Qualified Code(s): N30.01 - Acute cystitis with hematuria History of Present Illness Consult date: 12/24/18 Requesting physician: Clif Sharp Reason for consult: other (hypotension requiring pressor support) Chief complaint: FTT, poor PO intake History of present illness: Mrs. Sullivan is an 83-year-old female with a PMH of CAD, COPD, renal disease and prior CVA who presented to [facility] ED on 12/23/18 from [facility] with 8 days of failure to thrive and poor PO intake. Reported to have little to no PO intake over the last week and that she began mentating differently. She is mostly nonverbal. She does not answer questions while I am in the room or with her son. Per the nighttime resident note, the care home sais she is full code and son is ODALIS. History was obtained by patient's nurse, who reported that patient is normally able to feed herself at baseline, but has been recently refusing to eat. Today, patient had episode where she was not responding to verbal commands. HR was in the 30s, and O2 sat was in the 70s. Patient was only able to provide a limited history, as she was only able to answer questions by nodding and shaking her head. SNF decided to bring her into the ER. On arrival, vital signs were significant for HR 103 bpm, RR 24, BP 85/73, and O2 sat 93% on 2 L. Labs are significant for leukocytosis at 19.9 with left shift, low CO2 of 4, Cr 9.45 (baseline 3.5-4), troponin 0.04, and lactate of 3.2. EKG demonstrated a heart rate of 103, [place] interval 112, QRS duration 109, QT 358, and QTC 469; sinus tachycardia with low voltage, flattened T waves in anterior and lateral leads, unchanged from previous; no ST segment elevations or depressions. CXR demonstrated no acute process. CT abdomen and pelvis demonstrated findings consistent with colitis. C. difficile toxin was (+). She was given multiple boluses of fluid, however, BP didn't improve. Hurley catheter inserted and hardly any urine output was achieved. She was transferred to ICU for further management. She was started on vancomycin and flagyl for c. dif, CVC place in the right femoral area. This morning met with the son ODALIS, who wishes for his mother to be made comfort care. He states she wouldn't wish for dialysis, CPR or intubation. CODE STATUS updated and abx de-escalated. Comfort care measures in place. Past Med Surg Social Fam HX - Past Medical History Medical history: coronary artery disease, CVA, renal disease, other Additional medical history: protein malnutrition, cellulitis, thrombocytopenia. sacral decub stg 3 *healed* Psychiatric history: depression - Past Surgical History Surgical History: , cholecystectomy, other Additional surgical history: right foot surgery, back surgery - Social History Smoking Status: Never smoker Smokeless Tobacco Status: No Alcohol use: none Drug use: none - Family History Mother Living Status: Hx Family Cardiac Disorders: Yes Hx Family Respiratory Disorders: No Hx Family Cancer: No Hx Family GI Disorders: No Hx Family Endocrine Disorder: No Hx Family Neuromuscular Disorders: No Hx Family Neurologic Disorders: No Hx Family HEENT Disorders: No Hx Family Autoimmune Disorders: No Father Living Status: Hx Family Cardiac Disorders: No Hx Family Respiratory Disorders: No Hx Family Cancer: No Hx Family GI Disorders: No Hx Family Endocrine Disorder: No Hx Family Neuromuscular Disorders: No Hx Family Neurologic Disorders: No Hx Family HEENT Disorders: No Hx Family Autoimmune Disorders: No Medications and Allergies Ergocalciferol (VITAMIN D2) [Vitamin D] 400 unit PO BIDWM 12/23/18 [History] Ibuprofen [Ibu] 600 mg PO Q6H PRN 12/23/18 [History] Sennosides/Docusate Sodium [Senna Plus] 1 each PO BID PRN 12/23/18 [History] clonazePAM [Clonazepam] 1 mg PO HS 12/23/18 [History] Allergy/AdvReac Type Severity Reaction Status Date / Time latex Allergy Rash Verified 09/05/18 15:12 phenobarbital Allergy Hives Verified 09/05/18 15:12 ROS unobtainable: due to mental status All Systems: The remainder of the systems were reviewed and are negative Physical Examination Vital Signs: Vital Signs, Last 4 Hours Pulse Resp BP Pulse Ox 12/24/18 06:00 126 25 97/45 96 12/24/18 05:00 123 25 87/48 99 12/24/18 04:00 110 24 75/47 100 General appearance: lethargic, appears uncomfortable Eyes: nonicteric ENT: oropharynx dry Neck: supple Effort: mildly labored Inspection: normal Auscultation: bilateral: diminished breath sounds Cardiovascular: other (tacycardia) Gastrointestinal: tender, non-distended Integumentary: other (dry, pale skin; some mottling of the bilateral LE) Extremities: no edema, no clubbing Musculoskeletal: no deformities unable to assess due to mental status other (unable to assess due to mental status) Results - Laboratory Findings CBC and BMP: 12/24/18 03:36 12/24/18 03:36 ABG ABG pH 7.15 pH Units (7.32-7.45) L* 12/24/18 00:49 ABG pCO2 < 13 mmHg (35-45) L* 12/24/18 00:49 ABG pO2 163 mmHg (85-104) H 12/24/18 00:49 ABG O2 Saturation TNP 12/24/18 00:49 PT/INR, D-dimer PT 10.2 Seconds (9.4-12.1) 12/23/18 17:14 Abnormal lab findings: Abnormal lab results WBC 13.7 K/mcL (4.3-11.1) H 12/24/18 03:36 RBC 3.64 M/mcL (3.82-4.97) L 12/24/18 03:36 Hgb 11.0 g/dL (11.5-15.4) L D 12/24/18 03:36 Hct 33.1 % (35.3-44.9) L 12/24/18 03:36 Plt Count 115 K/mcL (140-400) L 12/24/18 03:36 11.9 K/mcL (1.6-8.9) H 12/24/18 03:36 1.7 K/mcL (0.0-1.3) H 12/23/18 17:14 Nucleated RBCs/100 WBC 0.3 /100 WBC (0) H 12/24/18 03:36 ABG pH 7.15 pH Units (7.32-7.45) L* 12/24/18 00:49 ABG pCO2 < 13 mmHg (35-45) L* 12/24/18 00:49 ABG pO2 163 mmHg (85-104) H 12/24/18 00:49 Chloride 116 mEq/L (98-107) H 12/24/18 03:36 Carbon Dioxide 4 mEq/L (23-29) L* 12/24/18 03:36 BUN > 130 mg/dL (8-23) H 12/24/18 03:36 7.57 mg/dL (0.60-1.20) H 12/24/18 03:36 Est GFR ( Amer) 6 (> 60) L 12/24/18 03:36 Est GFR (Non-Af Amer) 5 (> 60) L 12/24/18 03:36 Glucose 206 mg/dL (70-105) H 12/24/18 03:36 POC Glucose 102 mg/dL (70-99) H 12/23/18 22:45 Lactic Acid 3.2 mmol/L (0.5-2.2) H 12/23/18 17:14 Calcium 6.7 mg/dL (8.6-10.3) L 12/24/18 03:36 Phosphorus 8.6 mg/dL (2.7-4.5) H 12/24/18 03:36 357 Units/L (30-223) H 12/23/18 17:14 0.05 ng/mL (< 0.04) H* 12/23/18 22:55 4.1 g/dL (6.4-8.9) L 12/23/18 22:55 2.4 g/dL (3.5-5.7) L 12/23/18 22:55 1.7 g/dL (2.4-3.5) L 12/23/18 22:55 Red (Yellow) A 12/23/18 21:20 Turbid (Clear) A 12/23/18 21:20 >=1000 mg/dL (Neg-Trace) H 12/23/18 21:20 15 mg/dL (Negative) H 12/23/18 21:20 Large (Negative) H 12/23/18 21:20 Positive (Negative) A 12/23/18 21:20 Moderate (Negative) H 12/23/18 21:20 Ur Leukocyte Esterase Large (Negative) H 12/23/18 21:20 Ur Culture Indicated? YES (NO) A 12/23/18 21:20 Positive (Negative) A 12/23/18 21:15 Stl C. diff Tox B Gene Positive (Negative) A 12/23/18 21:20 - Microbiology Findings Microbiology Findings: Microbiology, Last 48 Hours 12/23/18 20:21 Blood Culture - Preliminary Peripheral Venipuncture Culture is incubating and being continuously monitored for growth. Final report to follow. 12/23/18 20:21 Blood Culture - Preliminary Peripheral Venipuncture Culture is incubating and being continuously monitored for growth. Final report to follow. 12/23/18 21:20 Urine Culture - Preliminary Urine,Catheterized (Straight) Culture is incubating. 12/23/18 21:20 Clostridium difficile Toxin A & B - Final Stool - Clinical Findings Intake & Output: Intake & Output 12/23/18 12/23/18 12/24/18 15:59 23:59 07:59 Intake Total 4000 / 4000 1257 / 1257 Output Total 25 / 25 Balance 4000 / 4000 1232 / 1232 Weight 44.2 kg 44.2 kg Consult Discharge Plan - Plan Referrals: NONE,PCP [Primary Care Provider] - <Frankie Yan - Last Filed: 12/24/18 20:29> Date of Encounter: 12/24/18 All Systems: The remainder of the systems were reviewed and are negative Results - Laboratory Findings CBC and BMP: 12/24/18 03:36 12/24/18 03:36 ABG ABG pH 7.15 pH Units (7.32-7.45) L* 12/24/18 00:49 ABG pCO2 < 13 mmHg (35-45) L* 12/24/18 00:49 ABG pO2 163 mmHg (85-104) H 12/24/18 00:49 ABG O2 Saturation TNP 12/24/18 00:49 PT/INR, D-dimer PT 10.2 Seconds (9.4-12.1) 12/23/18 17:14 Abnormal lab findings: Abnormal lab results WBC 13.7 K/mcL (4.3-11.1) H 12/24/18 03:36 RBC 3.64 M/mcL (3.82-4.97) L 12/24/18 03:36 Hgb 11.0 g/dL (11.5-15.4) L D 12/24/18 03:36 Hct 33.1 % (35.3-44.9) L 12/24/18 03:36 Plt Count 115 K/mcL (140-400) L 12/24/18 03:36 11.9 K/mcL (1.6-8.9) H 12/24/18 03:36 1.7 K/mcL (0.0-1.3) H 12/23/18 17:14 Nucleated RBCs/100 WBC 0.3 /100 WBC (0) H 12/24/18 03:36 ABG pH 7.15 pH Units (7.32-7.45) L* 12/24/18 00:49 ABG pCO2 < 13 mmHg (35-45) L* 12/24/18 00:49 ABG pO2 163 mmHg (85-104) H 12/24/18 00:49 Chloride 116 mEq/L (98-107) H 12/24/18 03:36 Carbon Dioxide 4 mEq/L (23-29) L* 12/24/18 03:36 BUN > 130 mg/dL (8-23) H 12/24/18 03:36 7.57 mg/dL (0.60-1.20) H 12/24/18 03:36 Est GFR ( Amer) 6 (> 60) L 12/24/18 03:36 Est GFR (Non-Af Amer) 5 (> 60) L 12/24/18 03:36 Glucose 206 mg/dL (70-105) H 12/24/18 03:36 POC Glucose 102 mg/dL (70-99) H 12/23/18 22:45 Lactic Acid 3.2 mmol/L (0.5-2.2) H 12/23/18 17:14 Calcium 6.7 mg/dL (8.6-10.3) L 12/24/18 03:36 Phosphorus 8.6 mg/dL (2.7-4.5) H 12/24/18 03:36 357 Units/L (30-223) H 12/23/18 17:14 0.05 ng/mL (< 0.04) H* 12/23/18 22:55 4.1 g/dL (6.4-8.9) L 12/23/18 22:55 2.4 g/dL (3.5-5.7) L 12/23/18 22:55 1.7 g/dL (2.4-3.5) L 12/23/18 22:55 Red (Yellow) A 12/23/18 21:20 Turbid (Clear) A 12/23/18 21:20 >=1000 mg/dL (Neg-Trace) H 12/23/18 21:20 15 mg/dL (Negative) H 12/23/18 21:20 Large (Negative) H 12/23/18 21:20 Positive (Negative) A 12/23/18 21:20 Moderate (Negative) H 12/23/18 21:20 Ur Leukocyte Esterase Large (Negative) H 12/23/18 21:20 Ur Culture Indicated? YES (NO) A 12/23/18 21:20 Positive (Negative) A 12/23/18 21:15 Stl C. diff Tox B Gene Positive (Negative) A 12/23/18 21:20 - Microbiology Findings Microbiology Findings: Microbiology, Last 48 Hours 12/23/18 20:21 Blood Culture - Preliminary Peripheral Venipuncture Gram Negative Luis Gram Positive Cocci 12/23/18 20:21 Blood Culture - Preliminary Peripheral Venipuncture Gram Negative Luis 12/23/18 21:20 Urine Culture - Preliminary Urine,Catheterized (Straight) Culture is incubating. 12/23/18 21:20 Clostridium difficile Toxin A & B - Final Stool - Clinical Findings Intake & Output: Intake & Output 12/24/18 12/24/18 12/24/18 07:59 15:59 23:59 Intake Total 1419 / 2331 912 / 2331 Output Total 25 / 25 Balance 1394 / 2306 912 / 2306 Weight 44.2 kg - Attending Attestation I saw and evaluated this goals of care was changed and my medical decision- making was reviewed with the Resident Physician. I agree with the documented findings, disposition and treatment plan as described except to the extent set forth below. We independently had [id number] contact with the patient Patient seen and examined at bedside Labs, radiology, chart personally reviewed. Management was reviewed during multidisciplinary critical care rounds. DIVIDEND CLERK: Patient has encephalopathy secondary to toxic/metabolic encephalopathy secondary to UTI and C. difficile colitis Pulm: Patient has acceptable oxygenation and ventilation patient never wanted to be in mechanical ventilation. Especially invasive Cards: Patient is in septic shock according to patient wishes also care change with position was mainly made by her son who understood the whole wishes. FEN-GI: To advance diet as per dietary Renal: Labs reviewed transitioned to comfort care measures ID: Is on broad-spectrum antibiotics discontinued prior to comfort care measure s. Heme/Onc: Labs reviewed Endo: Glucose Monitored Integ/MSK: Skin Care per routine ICU Nursing Protocol to prevent ulcers. Lines: All lines examined without evidence of infection : Dispo: @ CODE:
[2018-12-24] MEDS ORDERED: *HR* Morphine 2 MG/ML SYRINGE IVP PRN (07:31)
[2018-12-24] MEDS ORDERED: MetroNIDAZOLE 500 MG/100 ML 500 MG/100 ML BAG IVPB SCH (08:00)
[2018-12-24 08:12] VITALS: BP 81/48
[2018-12-24] MEDS ORDERED: Vancomycin 500 MG, Sodium Chloride IRRigation 250 ML RC SCH (09:00)
--- NOTE | 2018-12-24 10:46 | Death Note ---
<Albaro Piña S - Last Filed: 12/24/18 10:44> Discharge Sum: Summary - Date and Time Date of admission: 12/23/18 21:33 Date of : 12/24/18 Time of : 10:20 - Summary Details: Mrs. Sullivan is an 83-year-old female with a PMH of CAD, COPD, renal disease and prior CVA who presented to [facility] ED on 12/23/18 from [facility] [facility] with 8 days of failure to thrive and poor PO intake. Reported to have little to no PO intake over the last week and that she began mentating differently. She is mostly nonverbal. She does not answer questions while I am in the room or with her son. Per the nighttime resident note, the [place] [facility] sais she is full code and son is ODALIS. History was obtained by patient's nurse, who reported that patient is normally able to feed herself at baseline, but has been recently refusing to eat. Today, patient had episode where she was not responding to verbal commands. HR was in the 30s, and O2 sat was in the 70s. Patient was only able to provide a limited history, as she was only able to answer questions by nodding and shaking her head. SNF decided to bring her into the ER. On arrival, vital signs were significant for HR 103 bpm, RR 24, BP 85/73, and O2 sat 93% on 2 L. Labs are significant for leukocytosis at 19.9 with left shift, low CO2 of 4, Cr 9.45 (baseline 3.5-4), troponin 0.04, and lactate of 3.2. EKG demonstrated a heart rate of 103, [place] interval 112, QRS duration 109, QT 358, and QTC 469; sinus tachycardia with low voltage, flattened T waves in anterior and lateral leads, unchanged from previous; no ST segment elevations or depressions. CXR demonstrated no acute process. CT abdomen and pelvis demonstrated findings consistent with colitis. C. difficile toxin was (+). She was given multiple boluses of fluid, however, BP didn't improve. Hurley catheter inserted and hardly any urine output was achieved. She was transferred to ICU for further management. She was started on vancomycin and flagyl for c. dif, CVC place in the right femoral area. This morning met with the son ODALIS, who wishes for his mother to be made comfort care. He states she wouldn't wish for dialysis, CPR or intubation. CODE STATUS updated and abx de-escalated. Comfort care measures in place. At 10:20 AM the pt was pronounced . She had no heart sounds, respirations, or pulse. Family at bedside. - Additional Data Confirmation of as documented by pronouncing clinician: no pulse, no respirations, no heart sounds, pupils fixed and dilated Family: at bedside Attending/PCP notified?: No Attending physician: Joshua Atkins MD Was code activated?: No Autopsy requested?: No currency examiner notified?: No Organ bank notified?: No Advance directives: Yes Hospice patient?: No Discharge Sum: Diag - PCOD Probable Cause of : Cardiac arrest Discharge Sum: Prov - Provider Primary care physician: PCP NONE Admitting clinician: Joshua Atkins Attending physician on admission: Joshua Atkins Consults: 12/23/18 22:46 Consult to Nephrology [CONS] Routine Consulting Provider: Kidney Honey/LINDA/SAL/PETER Reason for Consult: Acute kidney injury superimposed on chronic kidney disease stage IV with no urine output since admission; creatinine 9.45; may require dialysis Call Completed: No 12/24/18 04:41 Consult to Pulmonology [CONS] Routine Consulting Provider: Pulm Crit [facility] & Sleep [place] Reason for Consult: Hypotension requiring pressor support Call Completed: No Pronouncing clinician: Albaro Piña <Frankie Yan - Last Filed: 12/24/18 20:26> Discharge Sum: Summary - Date and Time Date of admission: 12/23/18 21:33 - Additional Data Attending physician: Joshua Atkins MD Discharge Sum: Prov - Provider Primary care physician: PCP NONE Consults: 12/23/18 22:46 Consult to Nephrology [CONS] Routine Consulting Provider: [facility]ney [place]/LINDA/SAL/PETER Reason for Consult: Acute kidney injury superimposed on chronic kidney disease stage IV with no urine output since admission; creatinine 9.45; may require dialysis Call Completed: No 12/24/18 04:41 Consult to Pulmonology [CONS] Routine Consulting Provider: Pulm Crit Care & Sleep Honey Reason for Consult: Hypotension requiring pressor support Call Completed: No - Attending Attestation I saw and evaluated this patient and my medical decision-making was reviewed with the Resident Physician. I agree with the documented findings, disposition and treatment plan as described except to the extent set forth below. We independently had [id number] contact with the patient Presenting with septic shock due to UTI and C. difficile colitis according to patient wishes she was transitioned to comfort care measures only
--- NOTE | 2018-12-24 17:41 | Electrocardiograph Report ---
[address] [place], [place] [address] Test Date: 2018-12-23 Pat Name: Susan Sullivan Department: [id number] Room: 02 Gender: F Insulation Hoseman: : 1935 Requested By: Rehana Iqbal Order Number: [id number] Reading MD: Sharmila Carbajal Measurements Intervals [place] Rate: 103 P: 75 MA: 112 QRS: 9 QRSD: 109 T: 115 QT: 358 QTc: 469 Interpretive Statements Sinus tachycardia Atrial premature complex Low voltage, precordial leads Abnormal R-wave progression, early transition Abnormal T, consider ischemia, lateral leads Electronically Signed On 12-24-2018 17:40:09 EDT by Sharmila Carbajal
[2018-12-24 17:49] LABS: Acinetobacter baumannii by PCR Not Detected (Not Detect); Candida albicans by PCR Not Detected (Not Detect); Candida glabrata by PCR Not Detected (Not Detect); Candida krusei by PCR Not Detected (Not Detect); Candida parapsilosis by PCR Not Detected (Not Detect); Enterobacter cloacae Cmplx PCR Not Detected (Not Detect); Enterobacteriaceae by PCR Not Detected (Not Detect); Enterococcus by PCR Not Detected (Not Detect); Escherichia coli by PCR Not Detected (Not Detect); Klebsiella oxytoca by PCR Not Detected (Not Detect); Klebsiella pneumoniae by PCR Not Detected (Not Detect); Proteus by PCR Not Detected (Not Detect); Pseudomonas aeruginosa by PCR Not Detected (Not Detect); Serratia marcescens by PCR Not Detected (Not Detect); Staphylococcus aureus by PCR Not Detected (Not Detect); Staphylococcus by PCR Not Detected (Not Detect); Streptococcus agalactiae(B)PCR Not Detected (Not Detect); Streptococcus by PCR Not Detected (Not Detect); Streptococcus pneumoniae PCR Not Detected (Not Detect); Streptococcus pyogenes (A) PCR Not Detected (Not Detect); blaKPC Carbapenem-Resist Gene Not Detected (Not Detect); mecA Methicillin-Resist Gene Not Detected (Not Detect); vanA/B Vancomycin-Resist Genes Not Detected (Not Detect)
[2018-12-24 17:50] LABS: Candida tropicalis by PCR Not Detected (Not Detect)
[2018-12-25 11:04] LABS: Acinetobacter baumannii by PCR Not Detected (Not Detect); Candida albicans by PCR Not Detected (Not Detect); Candida glabrata by PCR Not Detected (Not Detect); Candida krusei by PCR Not Detected (Not Detect); Candida parapsilosis by PCR Not Detected (Not Detect); Candida tropicalis by PCR Not Detected (Not Detect); Enterobacter cloacae Cmplx PCR Not Detected (Not Detect); Enterobacteriaceae by PCR Not Detected (Not Detect); Enterococcus by PCR DETECTED (Not Detect); Escherichia coli by PCR Not Detected (Not Detect); Klebsiella oxytoca by PCR Not Detected (Not Detect); Klebsiella pneumoniae by PCR Not Detected (Not Detect); Proteus by PCR Not Detected (Not Detect); Pseudomonas aeruginosa by PCR Not Detected (Not Detect); Serratia marcescens by PCR Not Detected (Not Detect); Staphylococcus aureus by PCR Not Detected (Not Detect); Staphylococcus by PCR Not Detected (Not Detect); Streptococcus agalactiae(B)PCR Not Detected (Not Detect); Streptococcus by PCR Not Detected (Not Detect); Streptococcus pneumoniae PCR Not Detected (Not Detect); Streptococcus pyogenes (A) PCR Not Detected (Not Detect); vanA/B Vancomycin-Resist Genes Not Detected (Not Detect)
== END 2018-12-24 11:15 | disposition expired | DRG 871 ==
LOC: EMEROOARM 16:14 → ICNU 21:33
PROVIDERS: ADMIT Internal Medicine; ATTEND Internal Medicine